=== PATIENT | male | born 1965 | race Caucasian/White ===

== ENCOUNTER 2017-09-11 16:48 | Inpatient (IN) | payer MEDICAID ==
[~2017-09-11] VITALS: Ht 182.9 cm; Wt 115.1 kg
[~2017-09-11 16:48] MED LIST: ARIP20TA PO; BUPR100SR PO; DIPH25 PO; HALO2 PO; TRAZ-219 PO
[2017-09-11 17:15] LABS: BASOPHILS % (AUTO) 0.3 % (0.0-2.0); EOSINOPHILS % (AUTO) 0 % (1.0-6.0); HEMATOCRIT 46.9 % (41-53); HEMOGLOBIN 16.1 g/dL (13.5-17.5); LYMPHOCYTES # (AUTO) 8.1 K/uL (1.0-4.8); MEAN CORPUSCULAR HEMOGLOBIN 31.2 pg (26.0-34.0); MEAN CORPUSCULAR HGB CONC 34.4 G/dL (31.0-37.0); MEAN CORPUSCULAR VOLUME 91 fL (80-100); MONOCYTES # (AUTO) 1.1 K/uL (0.1-1.0); MONOCYTES % (AUTO) 6.8 % (2.0-9.0); NEUTROPHILS % (AUTO) 42.9 % (40.0-70.0); PLATELET COUNT (AUTO) 356 K/uL (150-450); RED BLOOD CELL COUNT(AUTO) 5.17 MIL/uL (4.50-5.90); RED CELL DISTRIBUTION WIDTH 13.5 % (11.5-14.5)
[2017-09-11 17:25] LABS: ANION GAP 12 mmol/L (8-16); CALCIUM, TOTAL 9.4 mg/dL (8.8-10.5); CARBON DIOXIDE 22 mmol/L (22-29); CHLORIDE 93 mmol/L (98-107); CREATININE 1.79 mg/dL (0.60-1.30); GLOMERULAR FILTR. RATE CALC 40 mL/min (>60); GLUCOSE,RANDOM 134 mg/dL (70-110); POTASSIUM 4.4 mmol/L (3.5-5.1); SODIUM SERUM 127 mmol/L (136-145); UREA NITROGEN, BLOOD 41 mg/dL (7-18)
[2017-09-11 17:33] LABS: ALANINE AMINOTRANSFERASE 131 U/L (12-78); ALBUMIN 3.9 g/dL (3.4-5.0); ALKALINE PHOSPHATASE 93 U/L (46-116); ASPARTATE AMINOTRANSFERASE 80 U/L (15-37); BILIRUBIN,TOTAL 1.8 mg/dL (0.1-1.0); TOTAL PROTEIN, SERUM 8.2 g/dL (6.4-8.2)
[2017-09-11] MEDS ORDERED: SODIUM CHLORIDE 0.9% 1,000 ML IV ONE (19:30)
[2017-09-11 19:45] LABS: AMPHET/METH SCREEN,URINE POSITIVE (NEGATIVE); BARBITURATE SCREEN, URINE NEGATIVE (NEGATIVE); BENZODIAZEPINES SCREEN,URINE NEGATIVE (NEGATIVE); CANNABINOID SCREEN,URINE NEGATIVE (NEGATIVE); COCAINE SCREEN,URINE NEGATIVE (NEGATIVE); METHADONE SCREEN, URINE NEGATIVE (NEGATIVE); OPIATE SCREEN,URINE POSITIVE (NEGATIVE)
[2017-09-11 19:46] LABS: PHENCYCLIDINE SCREEN,URINE NEGATIVE (NEGATIVE)
[2017-09-11] MEDS ORDERED: ZOLPIDEM TARTRATE 10 MG TABLET PO PRN (20:15)
[2017-09-11] MEDS ORDERED: HALOPERIDOL 5 MG TABLET PO PRN (20:15)
[2017-09-11 21:15] VITALS: BP 123/89
[2017-09-11] MEDS ORDERED: MAG HYDROX/AL HYDROX/SIMETH ES 30 ML SUSPENSION UDCUP PO PRN (23:15)
[2017-09-11] MEDS ORDERED: DOCUSATE SODIUM 100 MG CAPSULE PO PRN (23:15)
[2017-09-11] MEDS ORDERED: ALBUTEROL SULFATE HFA 90 MCG/PUFF 8 GM INHALER IH PRN (23:15)
[2017-09-11] MEDS ORDERED: LOPERAMIDE HCL 2 MG CAPSULE PO PRN (23:15)
[2017-09-11] MEDS ORDERED: ONDANSETRON HCL 4 MG TABLET PO PRN (23:15)
[2017-09-11] MEDS ORDERED: PETROLATUM,WHITE 71 GM JELLY TP PRN (23:15)
[2017-09-11] MEDS ORDERED: CloNIDine HCL 0.1 MG TABLET PO PRN (23:15)
[2017-09-11] MEDS ORDERED: MAGNESIUM HYDROXIDE SUSPENSION 30 ML UDCUP PO PRN (23:15)
[2017-09-12 01:00] VITALS: BP 118/81
[2017-09-12 08:18] VITALS: BP 106/60
[2017-09-12] MEDS: NICOTINE 14 MG/24 HOUR PATCH TD SCH (09:00)
[2017-09-12 09:28] LABS: CHOL/HDL RATIO 3.1 (4.2-7.3)
[2017-09-12] MEDS: SODIUM CHLORIDE 1 GM TABLET PO SCH ×2 (11:18→16:44)
[2017-09-12] MEDS: BuPROPion HCL XL 150 MG ER TABLET PO SCH (12:15)
[2017-09-12] MEDS: ARIPiprazole 15 MG TABLET PO SCH (12:15)
[2017-09-12 16:13] VITALS: BP 108/66
[2017-09-13 02:31] VITALS: BP 115/62
[2017-09-13] MEDS: LORazepam 2 MG TABLET PO PRN ×2 (08:22→15:54)
[2017-09-13] MEDS: BuPROPion HCL XL 150 MG ER TABLET PO SCH (08:22)
[2017-09-13] MEDS: SODIUM CHLORIDE 1 GM TABLET PO SCH (08:22)
[2017-09-13] MEDS: ARIPiprazole 15 MG TABLET PO SCH (08:22)
[2017-09-13] MEDS: NICOTINE 14 MG/24 HOUR PATCH TD SCH (08:24)
[2017-09-13 08:43] LABS: BASOPHILS % (AUTO) 0.3 % (0.0-2.0); EOSINOPHILS % (AUTO) 0.4 % (1.0-6.0); HEMATOCRIT 45.1 % (41-53); HEMOGLOBIN 15.3 g/dL (13.5-17.5); LYMPHOCYTES # (AUTO) 5.7 K/uL (1.0-4.8); LYMPHOCYTES % (AUTO) 49.5 % (22.0-44.0); MEAN CORPUSCULAR HEMOGLOBIN 31.2 pg (26.0-34.0); MEAN CORPUSCULAR VOLUME 92 fL (80-100); MONOCYTES # (AUTO) 0.8 K/uL (0.1-1.0); MONOCYTES % (AUTO) 6.9 % (2.0-9.0); NEUTROPHILS % (AUTO) 42.9 % (40.0-70.0); PLATELET COUNT (AUTO) 313 K/uL (150-450); RED BLOOD CELL COUNT(AUTO) 4.92 MIL/uL (4.50-5.90); RED CELL DISTRIBUTION WIDTH 13.3 % (11.5-14.5)
[2017-09-13 08:44] VITALS: BP 131/80
[2017-09-13 08:56] LABS: ANION GAP 4 mmol/L (8-16); CARBON DIOXIDE 32 mmol/L (22-29); CHLORIDE 102 mmol/L (98-107); CREATININE 1.01 mg/dL (0.60-1.30); GLOMERULAR FILTR. RATE CALC > 60 mL/min (>60); GLUCOSE,RANDOM 120 mg/dL (70-110); POTASSIUM 5.3 mmol/L (3.5-5.1); SODIUM SERUM 138 mmol/L (136-145); UREA NITROGEN, BLOOD 24 mg/dL (7-18)
[2017-09-13] MEDS ORDERED: SODIUM POLYSTYRENE SULFONATE 15 GM/60 ML SUSPENSION BOTTLE PO ONE (15:15)
[2017-09-13 16:08] VITALS: BP 110/71
[2017-09-14 00:44] VITALS: BP 121/74
[2017-09-14 07:15] VITALS: BP 125/85
[2017-09-14 08:00] VITALS: BP 137/82
[2017-09-14] MEDS: NICOTINE 14 MG/24 HOUR PATCH TD SCH (09:00)
[2017-09-14] MEDS: ARIPiprazole 15 MG TABLET PO SCH (09:17)
[2017-09-14] MEDS: BuPROPion HCL XL 150 MG ER TABLET PO SCH (09:17)
[2017-09-14] MEDS: LORazepam 2 MG TABLET PO PRN (14:38)
[2017-09-14 16:04] VITALS: BP 124/79
[2017-09-15 01:09] VITALS: BP 117/65
[2017-09-15 08:29] VITALS: BP 100/60
[2017-09-15] MEDS: BuPROPion HCL XL 150 MG ER TABLET PO SCH (08:56)
[2017-09-15] MEDS: ARIPiprazole 15 MG TABLET PO SCH (08:56)
[2017-09-15] MEDS: NICOTINE 14 MG/24 HOUR PATCH TD SCH (08:56)
[2017-09-15] MEDS: LORazepam 2 MG TABLET PO PRN ×2 (15:07→19:52)
[2017-09-15 16:11] VITALS: BP 112/66
[2017-09-16 00:20] VITALS: BP 120/87
[2017-09-16] MEDS: LORazepam 2 MG TABLET PO PRN ×3 (00:38→16:16)
[2017-09-16] MEDS: BENZOCAINE/MENTHOL LOZENGE PO PRN ×2 (07:17→23:49)
[2017-09-16 08:19] VITALS: BP 121/86
[2017-09-16] MEDS: NICOTINE 14 MG/24 HOUR PATCH TD SCH (09:00)
[2017-09-16] MEDS: BuPROPion HCL XL 150 MG ER TABLET PO SCH (09:26)
[2017-09-16] MEDS: ARIPiprazole 15 MG TABLET PO SCH (09:26)
[2017-09-16 17:06] VITALS: BP 137/82
[2017-09-17 01:59] VITALS: BP 133/85
[2017-09-17 08:34] VITALS: BP 113/68
[2017-09-17 08:35] LABS: ANION GAP 5 mmol/L (8-16); CARBON DIOXIDE 30 mmol/L (22-29); CHLORIDE 104 mmol/L (98-107); CREATININE 0.83 mg/dL (0.60-1.30); GLOMERULAR FILTR. RATE CALC > 60 mL/min (>60); GLUCOSE,RANDOM 101 mg/dL (70-110); POTASSIUM 4.3 mmol/L (3.5-5.1); SODIUM SERUM 139 mmol/L (136-145); UREA NITROGEN, BLOOD 14 mg/dL (7-18)
[2017-09-17] MEDS: NICOTINE 14 MG/24 HOUR PATCH TD SCH (09:00)
[2017-09-17] MEDS: ARIPiprazole 15 MG TABLET PO SCH (09:27)
[2017-09-17] MEDS: BuPROPion HCL XL 150 MG ER TABLET PO SCH (09:27)
[2017-09-17] MEDS ORDERED: ARIP15TA2 PO (10:20)
[2017-09-17] MEDS ORDERED: BUPR-93 PO (10:20)
== END 2017-09-17 13:20 | disposition home or self-care (01) | DRG 750 ==
LOC: EMS 16:49 → B2S 20:00
PROVIDERS: ADMIT Psychiatry & Neurology Psychiatry; ATTEND Psychiatry & Neurology Psychiatry
DX: F25.1 Schizoaffective disorder, depressive type (principal); N17.9 Acute kidney failure, unspecified; E87.1 Hypo-osmolality and hyponatremia; R45.851 Suicidal ideations; E87.5 Hyperkalemia; I10 Essential (primary) hypertension; D72.829 Elevated white blood cell count, unspecified; F10.10 Alcohol abuse, uncomplicated; F11.90 Opioid use, unspecified, uncomplicated; F12.90 Cannabis use, unspecified, uncomplicated; F15.90 Other stimulant use, unspecified, uncomplicated; J45.909 Unspecified asthma, uncomplicated; W45.8XXA Other foreign body or object entering through skin, initial encounter; I12.9 Hypertensive chronic kidney disease with stage 1 through stage 4 chronic kidney disease, or unspecified chronic kidney disease; N18.9 Chronic kidney disease, unspecified; Y93.89 Activity, other specified; Y92.89 Other specified places as the place of occurrence of the external cause; W33.01XA Accidental discharge of shotgun, initial encounter; Y99.8 Other external cause status; Z91.19 Patient's noncompliance with other medical treatment and regimen; W26.8XXA Contact with other sharp object(s), not elsewhere classified, initial encounter; Z87.828 Personal history of other (healed) physical injury and trauma; Z79.82 Long term (current) use of aspirin; Z79.899 Other long term (current) drug therapy
CPT/HCPCS: 84132; 99285; G0480; J7030

== ENCOUNTER 2018-02-09 18:08 | Inpatient (IN) | payer MEDICAID ==
[~2018-02-09] VITALS: Ht 182.9 cm; Wt 112.7 kg
[~2018-02-09 18:08] MED LIST changes: +ARIP15TA2 PO; -ARIP20TA PO; +BUPR-93 PO; -BUPR100SR PO; -DIPH25 PO; -HALO2 PO; -TRAZ-219 PO
[2018-02-09] MEDS ORDERED: BENZ0.5T44 PO (20:04)
[2018-02-09] MEDS ORDERED: HALO1 PO (20:04)
[2018-02-09] MEDS ORDERED: DULO20CA30 PO (20:04)
[2018-02-09 20:18] LABS: ANION GAP 8 mmol/L (8-16); CALCIUM, TOTAL 8.9 mg/dL (8.8-10.5); CARBON DIOXIDE 27 mmol/L (22-29); CHLORIDE 104 mmol/L (98-107); CREATININE 0.84 mg/dL (0.60-1.30); GLOMERULAR FILTR. RATE CALC > 60 mL/min (>60); GLUCOSE,RANDOM 112 mg/dL (70-110); POTASSIUM 3.8 mmol/L (3.5-5.1); SODIUM SERUM 139 mmol/L (136-145); UREA NITROGEN, BLOOD 17 mg/dL (7-18)
[2018-02-09 20:23] LABS: BASOPHILS % (AUTO) 1.1 % (0.0-2.0); EOSINOPHILS % (AUTO) 1.5 % (1.0-6.0); HEMATOCRIT 43.7 % (41-53); HEMOGLOBIN 15.4 g/dL (13.5-17.5); LYMPHOCYTES # (AUTO) 3.3 K/uL (1.0-4.8); LYMPHOCYTES % (AUTO) 45.1 % (22.0-44.0); MEAN CORPUSCULAR HEMOGLOBIN 32.1 pg (26.0-34.0); MEAN CORPUSCULAR HGB CONC 35.2 G/dL (31.0-37.0); MEAN CORPUSCULAR VOLUME 91 fL (80-100); MONOCYTES # (AUTO) 0.7 K/uL (0.1-1.0); MONOCYTES % (AUTO) 9.3 % (2.0-9.0); NEUTROPHILS # (AUTO) 3.1 K/uL (1.8-7.7); PLATELET COUNT (AUTO) 264 K/uL (150-450); RED BLOOD CELL COUNT(AUTO) 4.79 MIL/uL (4.50-5.90); RED CELL DISTRIBUTION WIDTH 13.3 % (11.5-14.5)
[2018-02-09 20:26] LABS: ALANINE AMINOTRANSFERASE 118 U/L (12-78); ALBUMIN 3.1 g/dL (3.4-5.0); ALKALINE PHOSPHATASE 116 U/L (46-116); ASPARTATE AMINOTRANSFERASE 111 U/L (15-37); BILIRUBIN,TOTAL 0.8 mg/dL (0.1-1.0); TOTAL PROTEIN, SERUM 7.3 g/dL (6.4-8.2)
[2018-02-09 21:21] LABS: AMPHET/METH SCREEN,URINE POSITIVE (NEGATIVE); BARBITURATE SCREEN, URINE NEGATIVE (NEGATIVE); BENZODIAZEPINES SCREEN,URINE NEGATIVE (NEGATIVE); CANNABINOID SCREEN,URINE NEGATIVE (NEGATIVE); COCAINE SCREEN,URINE NEGATIVE (NEGATIVE); METHADONE SCREEN, URINE NEGATIVE (NEGATIVE); OPIATE SCREEN,URINE POSITIVE (NEGATIVE); PHENCYCLIDINE SCREEN,URINE NEGATIVE (NEGATIVE)
[2018-02-09] MEDS ORDERED: HALOPERIDOL 5 MG TABLET PO PRN (22:15)
[2018-02-09 22:48] LABS: APPEARANCE,URINE CLEAR (CLEAR); GLUCOSE, URINE (UA) NEGATIVE (NEGATIVE); KETONES,URINE TRACE mg/dL (NEGATIVE); LEUKOCYTE ESTERASE ,URINE NEGATIVE (NEGATIVE); NITRATE,URINE NEGATIVE (NEGATIVE); OCCULT BLOOD,URINE NEGATIVE (NEGATIVE); PROTEIN,URINE NEGATIVE (NEGATIVE)
[2018-02-09 22:49] LABS: BILIRUBIN,URINE PRELIM. POSITIVE (NEGATIVE)
[2018-02-09 23:13] LABS: BACTERIA,URINE None Seen /HPF (None Seen); RBC,URINE 0-2 /HPF (0-2); SQUAMOUS EPITHELIAL CELL,UR Few /LPF (None Seen); WBC,URINE 0-2 /HPF (0-5)
[2018-02-10 00:47] VITALS: BP 120/81
[2018-02-10] MEDS: ZOLPIDEM TARTRATE 10 MG TABLET PO PRN (00:57)
[2018-02-10] MEDS: LORazepam 2 MG TABLET PO PRN (00:57)
[2018-02-10] MEDS ORDERED: LOPERAMIDE HCL 2 MG CAPSULE PO PRN ×2 (06:15→06:30)
[2018-02-10] MEDS ORDERED: CloNIDine HCL 0.1 MG TABLET PO PRN ×2 (06:15→06:30)
[2018-02-10] MEDS ORDERED: GuaiFENesin/D-METHORPHAN [SUGAR-FREE] 200-20MG/10 ML SYRUP UDCUP PO PRN ×2 (06:15→06:30)
[2018-02-10] MEDS ORDERED: ONDANSETRON HCL 4 MG TABLET PO PRN ×2 (06:15→06:30)
[2018-02-10] MEDS ORDERED: MAG HYDROX/AL HYDROX/SIMETH ES 30 ML SUSPENSION UDCUP PO PRN ×2 (06:15→06:30)
[2018-02-10] MEDS ORDERED: MAGNESIUM HYDROXIDE SUSPENSION 30 ML UDCUP PO PRN ×2 (06:15→06:30)
[2018-02-10] MEDS ORDERED: DOCUSATE SODIUM 100 MG CAPSULE PO PRN ×2 (06:15→06:30)
[2018-02-10] MEDS ORDERED: NICOTINE 14 MG/24 HOUR PATCH TD PRN ×2 (06:15→06:30)
[2018-02-10] MEDS ORDERED: PETROLATUM,WHITE 71 GM JELLY TP PRN ×2 (06:15→06:30)
[2018-02-10] MEDS ORDERED: ALBUTEROL SULFATE HFA 90 MCG/PUFF 8 GM INHALER IH PRN ×2 (06:15→06:30)
[2018-02-10 08:13] LABS: BASOPHILS % (AUTO) 0.4 % (0.0-2.0); EOSINOPHILS % (AUTO) 2.5 % (1.0-6.0); HEMATOCRIT 40.7 % (41-53); HEMOGLOBIN 14.4 g/dL (13.5-17.5); LYMPHOCYTES # (AUTO) 3.2 K/uL (1.0-4.8); LYMPHOCYTES % (AUTO) 52.4 % (22.0-44.0); MEAN CORPUSCULAR HEMOGLOBIN 32.6 pg (26.0-34.0); MEAN CORPUSCULAR HGB CONC 35.3 G/dL (31.0-37.0); MEAN CORPUSCULAR VOLUME 92 fL (80-100); MONOCYTES # (AUTO) 0.6 K/uL (0.1-1.0); MONOCYTES % (AUTO) 9.9 % (2.0-9.0); NEUTROPHILS # (AUTO) 2.1 K/uL (1.8-7.7); NEUTROPHILS % (AUTO) 34.8 % (40.0-70.0); PLATELET COUNT (AUTO) 242 K/uL (150-450); RED BLOOD CELL COUNT(AUTO) 4.42 MIL/uL (4.50-5.90); RED CELL DISTRIBUTION WIDTH 13.7 % (11.5-14.5)
[2018-02-10 08:45] LABS: HEMOGLOBIN A1C 5.9 % (4.5-6.2)
[2018-02-10 08:46] VITALS: BP 111/76
[2018-02-10 08:55] LABS: ALANINE AMINOTRANSFERASE 104 U/L (12-78); ALBUMIN 2.7 g/dL (3.4-5.0); ALKALINE PHOSPHATASE 100 U/L (46-116); ANION GAP 4 mmol/L (8-16); ASPARTATE AMINOTRANSFERASE 98 U/L (15-37); BILIRUBIN,TOTAL 0.5 mg/dL (0.1-1.0); CALCIUM, TOTAL 8.6 mg/dL (8.8-10.5); CARBON DIOXIDE 30 mmol/L (22-29); CHLORIDE 108 mmol/L (98-107); CHOL/HDL RATIO 2.2 (4.2-7.3); CHOLESTEROL 85 mg/dL (131-200); FREE T4 (FREE THYROXINE) 1.37 ng/dL (0.76-1.46); GLOMERULAR FILTR. RATE CALC > 60 mL/min (>60); GLUCOSE,RANDOM 109 mg/dL (70-110); HDL CHOLESTEROL 39 mg/dL (40-60); LDL CHOL (CALC.) 39 mg/dL (0-130); POTASSIUM 3.9 mmol/L (3.5-5.1); SODIUM SERUM 142 mmol/L (136-145); THYROID STIMULATING HORMONE 1.76 uIU/mL (0.36-3.74); TOTAL PROTEIN, SERUM 6.3 g/dL (6.4-8.2); TRIGLYCERIDES 35 mg/dL (15-150); UREA NITROGEN, BLOOD 18 mg/dL (7-18)
[2018-02-10] MEDS: DULoxetine HCL 20 MG CAPSULE PO SCH (09:34)
[2018-02-10] MEDS: ARIPiprazole 15 MG TABLET PO SCH (09:34)
[2018-02-10 16:23] VITALS: BP 120/64
[2018-02-11 02:49] VITALS: BP 114/73
[2018-02-11 08:32] VITALS: BP 121/69
[2018-02-11] MEDS: DULoxetine HCL 20 MG CAPSULE PO SCH (08:54)
[2018-02-11] MEDS: ARIPiprazole 15 MG TABLET PO SCH (08:54)
[2018-02-11 16:18] VITALS: BP 129/65
[2018-02-12 01:43] VITALS: BP 139/81
[2018-02-12 08:27] VITALS: BP 126/81
[2018-02-12] MEDS: ARIPiprazole 15 MG TABLET PO SCH (08:29)
[2018-02-12] MEDS: DULoxetine HCL 20 MG CAPSULE PO SCH (08:29)
[2018-02-12] MEDS ORDERED: DULoxetine HCL 20 MG CAPSULE PO ONE (11:45)
[2018-02-12] MEDS ORDERED: ACETAMINOPHEN 325 MG TABLET PO PRN (16:00)
[2018-02-12 16:14] VITALS: BP 123/68
[2018-02-13 07:14] VITALS: BP 120/86
[2018-02-13 07:15] VITALS: BP 128/74
[2018-02-13 08:12] VITALS: BP 114/74
[2018-02-13] MEDS ORDERED: DULoxetine HCL 20 MG CAPSULE PO SCH (09:00)
[2018-02-13] MEDS: ARIPiprazole 15 MG TABLET PO SCH (09:29)
[2018-02-13 16:20] VITALS: BP 128/67
[2018-02-13] MEDS: LORazepam 2 MG TABLET PO PRN (16:51)
[2018-02-14 07:18] VITALS: BP 127/88
[2018-02-14 08:06] VITALS: BP 125/76
[2018-02-14] MEDS: ARIPiprazole 15 MG TABLET PO SCH (08:57)
[2018-02-14] MEDS: ESCITALOPRAM OXALATE 10 MG TABLET PO SCH (08:57)
[2018-02-14 16:15] VITALS: BP 148/75
[2018-02-14] MEDS: LORazepam 2 MG TABLET PO PRN (16:35)
[2018-02-15 00:41] VITALS: BP 125/79
[2018-02-15] MEDS: ARIPiprazole 15 MG TABLET PO SCH (08:14)
[2018-02-15] MEDS: ESCITALOPRAM OXALATE 10 MG TABLET PO SCH (08:14)
[2018-02-15 08:18] VITALS: BP 132/64
[2018-02-15 16:31] VITALS: BP 105/73
[2018-02-15] MEDS: LORazepam 2 MG TABLET PO PRN (17:20)
[2018-02-16 02:20] VITALS: BP 109/72
[2018-02-16 08:17] VITALS: BP 100/64
[2018-02-16] MEDS: ARIPiprazole 15 MG TABLET PO SCH (08:27)
[2018-02-16] MEDS: ESCITALOPRAM OXALATE 10 MG TABLET PO SCH (08:27)
[2018-02-16] MEDS: LORazepam 2 MG TABLET PO PRN (10:25)
[2018-02-16 16:32] VITALS: BP 115/71
[2018-02-17 05:47] VITALS: BP 120/73
[2018-02-17] MEDS: ESCITALOPRAM OXALATE 10 MG TABLET PO SCH (08:35)
[2018-02-17] MEDS: ARIPiprazole 15 MG TABLET PO SCH (08:35)
[2018-02-17] MEDS ORDERED: ESCITALOPRAM OXALATE 10 MG TABLET PO SCH (09:15)
[2018-02-17] MEDS ORDERED: ESCITALOPRAM OXALATE 10 MG TABLET PO ONE (09:15)
[2018-02-17] MEDS ORDERED: ARIPiprazole 5 MG TABLET PO ONE (09:15)
[2018-02-17 12:31] VITALS: BP 130/81
[2018-02-17 16:10] VITALS: BP 124/70
[2018-02-17] MEDS: LORazepam 2 MG TABLET PO PRN (20:26)
[2018-02-18 00:15] VITALS: BP 128/72
[2018-02-18 08:24] VITALS: BP 111/69
[2018-02-18] MEDS ORDERED: TUBERCULIN, PURIFIED PROTEIN DERIVATIVE 5 TU/0.1 ML SYG ID ONE (08:45)
[2018-02-18] MEDS: ARIPiprazole 10 MG TABLET PO SCH (08:55)
[2018-02-18] MEDS: ESCITALOPRAM OXALATE 10 MG TABLET PO SCH (08:55)
[2018-02-18] MEDS: LORazepam 2 MG TABLET PO PRN (16:18)
[2018-02-18 16:21] VITALS: BP 120/85
[2018-02-19 05:33] VITALS: BP 118/76
[2018-02-19 08:25] VITALS: BP 113/66
[2018-02-19] MEDS: ARIPiprazole 10 MG TABLET PO SCH (08:59)
[2018-02-19] MEDS: ESCITALOPRAM OXALATE 10 MG TABLET PO SCH (09:00)
[2018-02-19] MEDS ORDERED: ESCITALOPRAM OXALATE 10 MG TABLET PO ONE (11:45)
[2018-02-19] MEDS: LORazepam 2 MG TABLET PO PRN ×2 (12:41→20:21)
[2018-02-19 16:10] VITALS: BP 130/85
[2018-02-19] MEDS: NICOTINE POLACRILEX 2 MG LOZENGE PO PRN (20:22)
[2018-02-20 00:35] VITALS: BP 102/67
[2018-02-20 08:29] VITALS: BP 120/70
[2018-02-20] MEDS: ESCITALOPRAM OXALATE 20 MG TABLET PO SCH (09:03)
[2018-02-20] MEDS: ARIPiprazole 10 MG TABLET PO SCH (09:03)
[2018-02-20] MEDS: LORazepam 2 MG TABLET PO PRN ×2 (11:03→17:51)
[2018-02-20 16:51] VITALS: BP 116/71
[2018-02-21 00:26] VITALS: BP 123/63
[2018-02-21 08:28] VITALS: BP 114/81
[2018-02-21] MEDS: ARIPiprazole 10 MG TABLET PO SCH (09:12)
[2018-02-21] MEDS: ESCITALOPRAM OXALATE 20 MG TABLET PO SCH (09:12)
[2018-02-21] MEDS: LORazepam 2 MG TABLET PO PRN ×2 (11:13→16:26)
[2018-02-21] MEDS: BuPROPion HCL XL 150 MG ER TABLET PO SCH (11:33)
[2018-02-21 16:14] VITALS: BP 119/84
[2018-02-22 00:15] VITALS: BP 104/64
[2018-02-22] MEDS: ARIPiprazole 10 MG TABLET PO SCH (08:17)
[2018-02-22] MEDS: ESCITALOPRAM OXALATE 20 MG TABLET PO SCH (08:18)
[2018-02-22] MEDS: BuPROPion HCL XL 150 MG ER TABLET PO SCH (08:18)
[2018-02-22 08:36] VITALS: BP 125/70
[2018-02-22] MEDS: LORazepam 2 MG TABLET PO PRN ×2 (10:12→17:16)
[2018-02-22 16:05] VITALS: BP 107/67
[2018-02-23 00:51] VITALS: BP 105/64
[2018-02-23 08:23] VITALS: BP 126/72
[2018-02-23] MEDS: BuPROPion HCL XL 150 MG ER TABLET PO SCH (08:50)
[2018-02-23] MEDS: ESCITALOPRAM OXALATE 20 MG TABLET PO SCH (08:50)
[2018-02-23] MEDS: ARIPiprazole 10 MG TABLET PO SCH (08:50)
[2018-02-23] MEDS: LORazepam 2 MG TABLET PO PRN ×2 (12:43→17:53)
[2018-02-23 16:45] VITALS: BP 125/74
[2018-02-23] MEDS: NICOTINE POLACRILEX 2 MG LOZENGE PO PRN (17:52)
[2018-02-24 00:53] VITALS: BP 106/65
[2018-02-24 08:25] VITALS: BP 121/70
[2018-02-24] MEDS: BuPROPion HCL XL 150 MG ER TABLET PO SCH (08:54)
[2018-02-24] MEDS: ARIPiprazole 10 MG TABLET PO SCH (08:54)
[2018-02-24] MEDS: ESCITALOPRAM OXALATE 20 MG TABLET PO SCH (08:55)
[2018-02-24] MEDS ORDERED: BuPROPion HCL XL 150 MG ER TABLET PO ONE (11:45)
[2018-02-24] MEDS ORDERED: ARIPiprazole 10 MG TABLET PO ONE (11:45)
[2018-02-24] MEDS: LORazepam 2 MG TABLET PO PRN (12:21)
[2018-02-24 16:11] VITALS: BP 117/68
[2018-02-25 06:33] VITALS: BP 108/68
[2018-02-25] MEDS: ARIPiprazole 15 MG TABLET PO SCH (09:03)
[2018-02-25] MEDS: BuPROPion HCL XL 150 MG ER TABLET PO SCH (09:04)
[2018-02-25] MEDS: ESCITALOPRAM OXALATE 20 MG TABLET PO SCH (09:04)
[2018-02-25 09:09] VITALS: BP 124/76
[2018-02-25 09:33] LABS: AMPHET/METH SCREEN,URINE NEGATIVE (NEGATIVE); BARBITURATE SCREEN, URINE NEGATIVE (NEGATIVE); BENZODIAZEPINES SCREEN,URINE NEGATIVE (NEGATIVE); CANNABINOID SCREEN,URINE NEGATIVE (NEGATIVE); COCAINE SCREEN,URINE NEGATIVE (NEGATIVE); METHADONE SCREEN, URINE NEGATIVE (NEGATIVE); OPIATE SCREEN,URINE NEGATIVE (NEGATIVE); PHENCYCLIDINE SCREEN,URINE NEGATIVE (NEGATIVE)
[2018-02-25 16:12] VITALS: BP 134/80
[2018-02-25] MEDS: LORazepam 2 MG TABLET PO PRN (18:47)
[2018-02-26 00:20] VITALS: BP 105/69
[2018-02-26] MEDS: ARIPiprazole 15 MG TABLET PO SCH (09:02)
[2018-02-26] MEDS: BuPROPion HCL XL 150 MG ER TABLET PO SCH (09:03)
[2018-02-26] MEDS: ESCITALOPRAM OXALATE 20 MG TABLET PO SCH (09:03)
[2018-02-26 09:55] VITALS: BP 138/76
[2018-02-26 16:07] VITALS: BP 130/78
[2018-02-27 05:49] VITALS: BP 126/72
[2018-02-27] MEDS: ARIPiprazole 15 MG TABLET PO SCH (08:21)
[2018-02-27] MEDS: BuPROPion HCL XL 150 MG ER TABLET PO SCH (08:21)
[2018-02-27] MEDS: ESCITALOPRAM OXALATE 20 MG TABLET PO SCH (08:21)
[2018-02-27 08:53] VITALS: BP 117/86
[2018-02-27] MEDS: LORazepam 2 MG TABLET PO PRN (12:47)
[2018-02-27 16:37] VITALS: BP 107/69
[2018-02-28 01:05] VITALS: BP 118/60
[2018-02-28] MEDS: LORazepam 2 MG TABLET PO PRN ×2 (06:32→16:37)
[2018-02-28 08:16] VITALS: BP 108/73
[2018-02-28] MEDS: BuPROPion HCL XL 150 MG ER TABLET PO SCH (08:24)
[2018-02-28] MEDS: ESCITALOPRAM OXALATE 20 MG TABLET PO SCH (08:24)
[2018-02-28] MEDS: ARIPiprazole 15 MG TABLET PO SCH (08:24)
[2018-02-28 16:41] VITALS: BP 110/76
[2018-03-01] VITALS (8 sets, daily range): BP systolic 105–139; BP diastolic 63–94
[2018-03-01] MEDS: ESCITALOPRAM OXALATE 20 MG TABLET PO SCH (08:15)
[2018-03-01] MEDS: BuPROPion HCL XL 150 MG ER TABLET PO SCH (08:15)
[2018-03-01] MEDS: ARIPiprazole 15 MG TABLET PO SCH (08:15)
[2018-03-01] MEDS: TraMADol HCL 50 MG TABLET PO PRN ×2 (09:42→18:19)
[2018-03-01] MEDS ORDERED: FAMOTIDINE 20 MG TABLET PO ONE (14:15)
[2018-03-01] MEDS ORDERED: PredniSONE 20 MG TABLET PO ONE (14:15)
[2018-03-01] MEDS ORDERED: DiphenhydrAMINE HCL 25 MG CAPSULE PO ONE (14:15)
[2018-03-02 05:27] VITALS: BP 116/77
[2018-03-02] MEDS: TraMADol HCL 50 MG TABLET PO PRN ×2 (05:40→13:40)
[2018-03-02] MEDS ORDERED: DiphenhydrAMINE HCL 25 MG CAPSULE PO ONE (06:45)
[2018-03-02] MEDS ORDERED: PredniSONE 10 MG TABLET PO ONE (06:45)
[2018-03-02] MEDS: ARIPiprazole 15 MG TABLET PO SCH (08:01)
[2018-03-02] MEDS: ESCITALOPRAM OXALATE 20 MG TABLET PO SCH (08:01)
[2018-03-02] MEDS: BuPROPion HCL XL 150 MG ER TABLET PO SCH (08:01)
[2018-03-02 08:11] VITALS: BP 128/70
[2018-03-02 13:37] VITALS: BP 123/81
[2018-03-02] MEDS ORDERED: FAMOTIDINE 20 MG TABLET PO ONE (15:30)
[2018-03-02 15:53] VITALS: BP 110/72
[2018-03-02 19:38] VITALS: BP 110/72
[2018-03-03 00:10] VITALS: BP 138/90
[2018-03-03] MEDS: TraMADol HCL 50 MG TABLET PO PRN ×3 (00:12→16:39)
[2018-03-03 08:02] VITALS: BP 140/85
[2018-03-03] MEDS: ESCITALOPRAM OXALATE 20 MG TABLET PO SCH (08:14)
[2018-03-03] MEDS: BuPROPion HCL XL 150 MG ER TABLET PO SCH (08:14)
[2018-03-03] MEDS: ARIPiprazole 15 MG TABLET PO SCH (08:14)
[2018-03-03 16:01] VITALS: BP 139/78
[2018-03-04 00:34] VITALS: BP 109/69
[2018-03-04 05:00] VITALS: BP 126/81
[2018-03-04] MEDS: TraMADol HCL 50 MG TABLET PO PRN ×2 (05:09→16:42)
[2018-03-04] MEDS: BuPROPion HCL XL 150 MG ER TABLET PO SCH (08:09)
[2018-03-04] MEDS: ESCITALOPRAM OXALATE 20 MG TABLET PO SCH (08:09)
[2018-03-04] MEDS: ARIPiprazole 15 MG TABLET PO SCH (08:09)
[2018-03-04 08:16] VITALS: BP 141/82
[2018-03-04 16:10] VITALS: BP 125/82
[2018-03-05 01:23] VITALS: BP 109/73
[2018-03-05] MEDS: TraMADol HCL 50 MG TABLET PO PRN ×3 (01:43→20:35)
[2018-03-05] MEDS: ESCITALOPRAM OXALATE 20 MG TABLET PO SCH (08:09)
[2018-03-05] MEDS: BuPROPion HCL XL 150 MG ER TABLET PO SCH (08:09)
[2018-03-05] MEDS: ARIPiprazole 15 MG TABLET PO SCH (08:09)
[2018-03-05 09:10] VITALS: BP 134/78
[2018-03-05 12:20] VITALS: BP 117/74
[2018-03-05 16:02] VITALS: BP 118/76
[2018-03-05 20:35] VITALS: BP 118/78
[2018-03-05] MEDS: ZOLPIDEM TARTRATE 10 MG TABLET PO PRN (21:17)
[2018-03-06 00:35] VITALS: BP 110/62
[2018-03-06 05:14] VITALS: BP 138/85
[2018-03-06] MEDS: TraMADol HCL 50 MG TABLET PO PRN (05:31)
[2018-03-06] MEDS: BuPROPion HCL XL 150 MG ER TABLET PO SCH (08:16)
[2018-03-06] MEDS: ESCITALOPRAM OXALATE 20 MG TABLET PO SCH (08:16)
[2018-03-06] MEDS: ARIPiprazole 15 MG TABLET PO SCH (08:16)
[2018-03-06 08:19] VITALS: BP 126/81
[2018-03-06 16:11] VITALS: BP 148/90
[2018-03-06] MEDS: ZOLPIDEM TARTRATE 10 MG TABLET PO PRN (20:16)
[2018-03-07 06:06] VITALS: BP 128/83
[2018-03-07] MEDS: BuPROPion HCL XL 150 MG ER TABLET PO SCH (08:16)
[2018-03-07] MEDS: ESCITALOPRAM OXALATE 20 MG TABLET PO SCH (08:16)
[2018-03-07] MEDS: ARIPiprazole 15 MG TABLET PO SCH (08:16)
[2018-03-07] MEDS ORDERED: ESCI20TA PO (08:26)
[2018-03-07] MEDS ORDERED: ARIP15TA2 PO ×2 (08:26→11:42)
[2018-03-07] MEDS ORDERED: BUPR-93 PO (08:26)
[2018-03-07 08:36] VITALS: BP 124/93
[2018-03-07] MEDS ORDERED: ESCI20TA36 PO (11:42)
[2018-03-07] MEDS ORDERED: BUPR-47 PO (11:42)
== END 2018-03-07 13:15 | disposition home or self-care (01) | DRG 750 ==
LOC: EMS 18:09 → B2S 22:00
DX: F25.1 Schizoaffective disorder, depressive type (principal); R45.851 Suicidal ideations; Z59.0 Homelessness; F10.10 Alcohol abuse, uncomplicated; F11.10 Opioid abuse, uncomplicated; F15.10 Other stimulant abuse, uncomplicated; F31.9 Bipolar disorder, unspecified; J45.909 Unspecified asthma, uncomplicated; I10 Essential (primary) hypertension; F17.210 Nicotine dependence, cigarettes, uncomplicated; F41.0 Panic disorder [episodic paroxysmal anxiety]; T78.1XXA Other adverse food reactions, not elsewhere classified, initial encounter; T78.49XA Other allergy, initial encounter; X58.XXXA Exposure to other specified factors, initial encounter; Z65.3 Problems related to other legal circumstances; R45.87 Impulsiveness; E66.9 Obesity, unspecified; Z71.41 Alcohol abuse counseling and surveillance of alcoholic; Z71.51 Drug abuse counseling and surveillance of drug abuser; Z88.8 Allergy status to other drugs, medicaments and biological substances; Z90.49 Acquired absence of other specified parts of digestive tract; Z91.5 Personal history of self-harm; Z88.6 Allergy status to analgesic agent; Z91.018 Allergy to other foods; Z68.33 Body mass index [BMI] 33.0-33.9, adult
CPT/HCPCS: 80307; 83036; 84439; 84443; 87081; G0480

== ENCOUNTER 2018-03-02 18:51 | Emergency (ER) | payer MEDICAID ==
[~2018-03-02] VITALS: Ht 182.9 cm; Wt 113.6 kg
[~2018-03-02 18:51] MED LIST changes: -ARIP15TA2 PO; +BENZ0.5T44 PO; -BUPR-93 PO; +DULO20CA30 PO; +HALO1 PO
[2018-03-02 22:44] VITALS: BP 138/80
== END 2018-03-02 23:45 | disposition home or self-care (01) ==
LOC: EMS 18:52
DX: G62.9 Polyneuropathy, unspecified (principal); F31.9 Bipolar disorder, unspecified; F20.9 Schizophrenia, unspecified; F17.210 Nicotine dependence, cigarettes, uncomplicated; Z79.899 Other long term (current) drug therapy; Z88.6 Allergy status to analgesic agent; Z91.018 Allergy to other foods; Z88.8 Allergy status to other drugs, medicaments and biological substances; Z90.49 Acquired absence of other specified parts of digestive tract
CPT/HCPCS: 82948; 93970; 99406

== ENCOUNTER 2018-04-05 18:42 | Emergency (ER) | payer MEDICAID ==
[~2018-04-05] VITALS: Ht 177.8 cm; Wt 104.5 kg
[~2018-04-05 18:42] MED LIST changes: +ARIP15TA2 PO; -BENZ0.5T44 PO; +BUPR-47 PO; +BUPR-93 PO; -DULO20CA30 PO; +ESCI20TA PO; +ESCI20TA36 PO; -HALO1 PO
[2018-04-05] MEDS ORDERED: GABA-531 PO (19:51)
[2018-04-05] MEDS ORDERED: HALO1 PO (19:51)
[2018-04-05] MEDS ORDERED: BENZ1TAB10 PO (19:51)
[2018-04-05 21:06] LABS: BASOPHILS % (AUTO) 0.4 % (0.0-2.0); EOSINOPHILS % (AUTO) 0.5 % (1.0-6.0); HEMATOCRIT 45.8 % (41-53); HEMOGLOBIN 15.6 g/dL (13.5-17.5); LYMPHOCYTES # (AUTO) 4.8 K/uL (1.0-4.8); LYMPHOCYTES % (AUTO) 54.9 % (22.0-44.0); MEAN CORPUSCULAR HEMOGLOBIN 31.3 pg (26.0-34.0); MEAN CORPUSCULAR VOLUME 92 fL (80-100); MONOCYTES # (AUTO) 0.5 K/uL (0.1-1.0); MONOCYTES % (AUTO) 5.2 % (2.0-9.0); NEUTROPHILS # (AUTO) 3.4 K/uL (1.8-7.7); PLATELET COUNT (AUTO) 228 K/uL (150-450); RED BLOOD CELL COUNT(AUTO) 4.98 MIL/uL (4.50-5.90); RED CELL DISTRIBUTION WIDTH 12.5 % (11.5-14.5)
[2018-04-05 21:23] LABS: ANION GAP 18 mmol/L (8-16); CALCIUM, TOTAL 9.3 mg/dL (8.8-10.5); CARBON DIOXIDE 19 mmol/L (22-29); CHLORIDE 100 mmol/L (98-107); CREATININE 1.07 mg/dL (0.60-1.30); GLOMERULAR FILTR. RATE CALC > 60 mL/min (>60); GLUCOSE,RANDOM 392 mg/dL (70-110); POTASSIUM 4.1 mmol/L (3.5-5.1); SODIUM SERUM 137 mmol/L (136-145); UREA NITROGEN, BLOOD 12 mg/dL (7-18)
[2018-04-05 21:28] LABS: ALANINE AMINOTRANSFERASE 185 U/L (12-78); ALBUMIN 3.3 g/dL (3.4-5.0); ALKALINE PHOSPHATASE 224 U/L (46-116); ASPARTATE AMINOTRANSFERASE 125 U/L (15-37); BILIRUBIN,TOTAL 1.3 mg/dL (0.1-1.0); TOTAL PROTEIN, SERUM 7.6 g/dL (6.4-8.2)
[2018-04-05 22:00] VITALS: BP 137/83
== END 2018-04-05 22:00 | disposition home or self-care (01) ==
LOC: EMS 18:43
DX: R45.851 Suicidal ideations (principal); L29.9 Pruritus, unspecified; R73.9 Hyperglycemia, unspecified; J45.909 Unspecified asthma, uncomplicated; F31.9 Bipolar disorder, unspecified; F20.9 Schizophrenia, unspecified; I10 Essential (primary) hypertension; F17.210 Nicotine dependence, cigarettes, uncomplicated; Z90.49 Acquired absence of other specified parts of digestive tract; Z88.6 Allergy status to analgesic agent; Z91.018 Allergy to other foods
CPT/HCPCS: 36415; 80053; 85025; 99285; G0480

== ENCOUNTER 2018-06-22 19:15 | Emergency (ER) | payer MEDICAID ==
[~2018-06-22] VITALS: Ht 182.9 cm; Wt 97.3 kg
[~2018-06-22 19:15] MED LIST changes: +ARIP10TA8 PO; -ARIP15TA2 PO; -BUPR-47 PO; +DSS100 PO; -ESCI20TA36 PO; +FOLI1TAB61 PO; +LEVO250 PO; +METO25 PO; +VANC750V IV
[2018-06-22 19:39] LABS: GLUCOSE,POINT OF CARE 208 MG/DL (70-110)
[2018-06-22] MEDS ORDERED: MORPHINE SULFATE 4 MG/ML SYRINGE IM ONE (20:15)
[2018-06-22 21:46] VITALS: BP 141/99
== END 2018-06-22 23:10 | disposition home or self-care (01) ==
LOC: EMS 19:16
DX: S62.316A Displaced fracture of base of fifth metacarpal bone, right hand, initial encounter for closed fracture (principal); S63.255A Unspecified dislocation of left ring finger, initial encounter; J45.909 Unspecified asthma, uncomplicated; F31.9 Bipolar disorder, unspecified; F20.9 Schizophrenia, unspecified; I10 Essential (primary) hypertension; N17.9 Acute kidney failure, unspecified; F17.210 Nicotine dependence, cigarettes, uncomplicated; F19.90 Other psychoactive substance use, unspecified, uncomplicated; Z90.49 Acquired absence of other specified parts of digestive tract; Z88.6 Allergy status to analgesic agent; Z91.018 Allergy to other foods; Y04.0XXA Assault by unarmed brawl or fight, initial encounter; Y93.89 Activity, other specified; Y92.89 Other specified places as the place of occurrence of the external cause; Y99.8 Other external cause status
CPT/HCPCS: 26770; 73130 ×2; 73140; 82962; 96372; 99284; J2270

== ENCOUNTER 2018-10-10 10:22 | Emergency (ER) | payer MEDICAID ==
[~2018-10-10] VITALS: Ht 180.3 cm; Wt 100.0 kg
[~2018-10-10 10:22] MED LIST changes: -VANC750V IV
[2018-10-10] MEDS ORDERED: OLAN5TAB2 PO (10:34)
[2018-10-10 11:14] LABS: BASOPHILS % (AUTO) 0.6 % (0.0-2.0); EOSINOPHILS % (AUTO) 2.2 % (1.0-6.0); HEMATOCRIT 40.4 % (41-53); HEMOGLOBIN 13.4 g/dL (13.5-17.5); LYMPHOCYTES # (AUTO) 3.2 K/uL (1.0-4.8); LYMPHOCYTES % (AUTO) 44.8 % (22.0-44.0); MEAN CORPUSCULAR HEMOGLOBIN 31.5 pg (26.0-34.0); MEAN CORPUSCULAR HGB CONC 33.2 G/dL (31.0-37.0); MEAN CORPUSCULAR VOLUME 95 fL (80-100); MONOCYTES # (AUTO) 0.4 K/uL (0.1-1.0); MONOCYTES % (AUTO) 5.4 % (2.0-9.0); NEUTROPHILS # (AUTO) 3.3 K/uL (1.8-7.7); PLATELET COUNT (AUTO) 230 K/uL (150-450); RED BLOOD CELL COUNT(AUTO) 4.26 MIL/uL (4.50-5.90); RED CELL DISTRIBUTION WIDTH 14.6 % (11.5-14.5)
[2018-10-10 11:41] LABS: ANION GAP 10 mmol/L (8-16); CALCIUM, TOTAL 8.6 mg/dL (8.8-10.5); CARBON DIOXIDE 20 mmol/L (22-29); CHLORIDE 109 mmol/L (98-107); GLOMERULAR FILTR. RATE CALC > 60 mL/min (>60); GLUCOSE,RANDOM 113 mg/dL (70-110); POTASSIUM 3.8 mmol/L (3.5-5.1); SODIUM SERUM 139 mmol/L (136-145); UREA NITROGEN, BLOOD 26 mg/dL (7-18)
[2018-10-10 11:47] LABS: ALANINE AMINOTRANSFERASE 69 U/L (12-78); ALBUMIN 3.1 g/dL (3.4-5.0); ALKALINE PHOSPHATASE 129 U/L (46-116); ASPARTATE AMINOTRANSFERASE 46 U/L (15-37); BILIRUBIN,TOTAL 0.6 mg/dL (0.1-1.0); TOTAL PROTEIN, SERUM 6.8 g/dL (6.4-8.2)
[2018-10-10 11:50] VITALS: BP 134/59
== END 2018-10-10 12:18 | disposition home or self-care (01) ==
LOC: EMS 10:24
DX: S01.80XA Unspecified open wound of other part of head, initial encounter (principal); F25.9 Schizoaffective disorder, unspecified; F15.10 Other stimulant abuse, uncomplicated; F17.210 Nicotine dependence, cigarettes, uncomplicated; J45.909 Unspecified asthma, uncomplicated; F31.9 Bipolar disorder, unspecified; I10 Essential (primary) hypertension; F19.90 Other psychoactive substance use, unspecified, uncomplicated; F11.90 Opioid use, unspecified, uncomplicated; Z90.49 Acquired absence of other specified parts of digestive tract; Z88.6 Allergy status to analgesic agent; Z91.018 Allergy to other foods; X58.XXXA Exposure to other specified factors, initial encounter; Y93.89 Activity, other specified; Y92.89 Other specified places as the place of occurrence of the external cause; Y99.8 Other external cause status
CPT/HCPCS: 99406

== ENCOUNTER 2019-03-14 21:30 | Inpatient (IN) | payer MEDICAID ==
[~2019-03-14] VITALS: Ht 182.9 cm; Wt 112.9 kg
[~2019-03-14 21:30] MED LIST changes: -DSS100 PO; -ESCI20TA PO; -FOLI1TAB61 PO; -LEVO250 PO; -METO25 PO; +OLAN5TAB2 PO
[2019-03-14 22:57] LABS: BASOPHILS % (AUTO) 0.2 % (0.0-2.0); EOSINOPHILS % (AUTO) 0 % (1.0-6.0); HEMATOCRIT 44.4 % (41-53); HEMOGLOBIN 15.1 g/dL (13.5-17.5); LYMPHOCYTES # (AUTO) 1.3 K/uL (1.0-4.8); LYMPHOCYTES % (AUTO) 15.3 % (22.0-44.0); MEAN CORPUSCULAR HEMOGLOBIN 31.4 pg (26.0-34.0); MEAN CORPUSCULAR HGB CONC 34.1 G/dL (31.0-37.0); MEAN CORPUSCULAR VOLUME 92 fL (80-100); MONOCYTES # (AUTO) 0.8 K/uL (0.1-1.0); MONOCYTES % (AUTO) 8.9 % (2.0-9.0); NEUTROPHILS # (AUTO) 6.5 K/uL (1.8-7.7); NEUTROPHILS % (AUTO) 75.6 % (40.0-70.0); PLATELET COUNT (AUTO) 214 K/uL (150-450); RED BLOOD CELL COUNT(AUTO) 4.81 MIL/uL (4.50-5.90); RED CELL DISTRIBUTION WIDTH 13.4 % (11.5-14.5)
[2019-03-14 23:07] LABS: ANION GAP 9 mmol/L (8-16); CARBON DIOXIDE 25 mmol/L (22-29); CHLORIDE 101 mmol/L (98-107); CREATININE 1.46 mg/dL (0.60-1.30); GLOMERULAR FILTR. RATE CALC 50 mL/min (>60); GLUCOSE,RANDOM 101 mg/dL (70-110); POTASSIUM 3.9 mmol/L (3.5-5.1); SODIUM SERUM 135 mmol/L (136-145); UREA NITROGEN, BLOOD 20 mg/dL (7-18)
[2019-03-14 23:13] LABS: ALANINE AMINOTRANSFERASE 85 U/L (12-78); ALBUMIN 3.3 g/dL (3.4-5.0); ALKALINE PHOSPHATASE 119 U/L (46-116); ASPARTATE AMINOTRANSFERASE 92 U/L (15-37); BILIRUBIN,TOTAL 0.7 mg/dL (0.1-1.0)
[2019-03-15 00:59] LABS: AMPHET/METH SCREEN,URINE POSITIVE (NEGATIVE); BARBITURATE SCREEN, URINE NEGATIVE (NEGATIVE); BENZODIAZEPINES SCREEN,URINE NEGATIVE (NEGATIVE); CANNABINOID SCREEN,URINE NEGATIVE (NEGATIVE); COCAINE SCREEN,URINE NEGATIVE (NEGATIVE); METHADONE SCREEN, URINE NEGATIVE (NEGATIVE); OPIATE SCREEN,URINE NEGATIVE (NEGATIVE)
[2019-03-15 01:01] LABS: PHENCYCLIDINE SCREEN,URINE NEGATIVE (NEGATIVE)
[2019-03-15] MEDS ORDERED: BACITRACIN 0.9 GM PACKET OINTMENT TP ONE (03:15)
[2019-03-15] MEDS ORDERED: ZOLPIDEM TARTRATE 10 MG TABLET PO PRN (03:30)
[2019-03-15] MEDS ORDERED: HALOPERIDOL 5 MG TABLET PO PRN (03:30)
[2019-03-15] MEDS ORDERED: NICOTINE 14 MG/24 HOUR PATCH TD PRN (08:45)
[2019-03-15] MEDS ORDERED: LOPERAMIDE HCL 2 MG CAPSULE PO PRN (08:45)
[2019-03-15] MEDS ORDERED: ALBUTEROL SULFATE HFA 90 MCG/PUFF 8 GM INHALER IH PRN (08:45)
[2019-03-15] MEDS ORDERED: CloNIDine HCL 0.1 MG TABLET PO PRN (08:45)
[2019-03-15] MEDS ORDERED: ONDANSETRON HCL 4 MG TABLET PO PRN (08:45)
[2019-03-15] MEDS ORDERED: MAG HYDROX/AL HYDROX/SIMETH ES 30 ML SUSPENSION UDCUP PO PRN (08:45)
[2019-03-15] MEDS ORDERED: PETROLATUM,WHITE 28 GM JELLY TP PRN (08:45)
[2019-03-15] MEDS ORDERED: TraMADol HCL 50 MG TABLET PO PRN (08:45)
[2019-03-15] MEDS ORDERED: GuaiFENesin/D-METHORPHAN [SUGAR-FREE] 200-20MG/10 ML SYRUP UDCUP PO PRN (08:45)
[2019-03-15] MEDS: AmLODIPine BESYLATE 5 MG TABLET PO SCH (09:07)
[2019-03-15 16:18] VITALS: BP 124/82
[2019-03-16 05:37] VITALS: BP 125/60
[2019-03-16] MEDS: AmLODIPine BESYLATE 5 MG TABLET PO SCH (09:13)
[2019-03-16] MEDS: BuPROPion HCL XL 150 MG ER TABLET PO SCH (12:19)
[2019-03-16] MEDS: OLANZapine 5 MG TABLET PO SCH ×2 (12:19→16:25)
[2019-03-16 16:00] VITALS: BP 111/83
[2019-03-16] MEDS: BACITRACIN 28.4 GM OINTMENT TP SCH (16:25)
[2019-03-16] MEDS: LORazepam 2 MG TABLET PO PRN (16:25)
[2019-03-17 06:15] VITALS: BP 117/73
[2019-03-17 08:00] VITALS: BP 115/65
[2019-03-17 08:58] LABS: CHOL/HDL RATIO 4.4 (4.2-7.3)
[2019-03-17] MEDS: AmLODIPine BESYLATE 5 MG TABLET PO SCH (09:25)
[2019-03-17] MEDS: BuPROPion HCL XL 150 MG ER TABLET PO SCH (09:25)
[2019-03-17] MEDS: OLANZapine 5 MG TABLET PO SCH ×2 (09:25→16:37)
[2019-03-17] MEDS: BACITRACIN 28.4 GM OINTMENT TP SCH ×2 (10:43→16:37)
[2019-03-17] MEDS: LORazepam 2 MG TABLET PO PRN (16:37)
[2019-03-18] MEDS ORDERED: GuaiFENesin/D-METHORPHAN [SUGAR-FREE] 200-20MG/10 ML SYRUP UDCUP PO PRN (00:45)
[2019-03-18 03:09] VITALS: BP 140/96
[2019-03-18 08:28] VITALS: BP 133/84
[2019-03-18] MEDS: BuPROPion HCL XL 150 MG ER TABLET PO SCH (08:53)
[2019-03-18] MEDS: BACITRACIN 28.4 GM OINTMENT TP SCH ×2 (08:53→16:58)
[2019-03-18] MEDS: LORazepam 2 MG TABLET PO PRN ×2 (08:53→17:19)
[2019-03-18] MEDS: AmLODIPine BESYLATE 5 MG TABLET PO SCH (08:53)
[2019-03-18] MEDS: OLANZapine 5 MG TABLET PO SCH (08:53)
[2019-03-18] MEDS ORDERED: OLANZapine 5 MG TABLET PO ONE (09:45)
[2019-03-18 16:00] VITALS: BP 113/74
[2019-03-18] MEDS: MAGNESIUM HYDROXIDE SUSPENSION 30 ML UDCUP PO PRN (16:55)
[2019-03-18] MEDS: OLANZapine 10 MG TABLET PO SCH (17:19)
[2019-03-19 06:38] VITALS: BP 116/78
[2019-03-19] MEDS: AmLODIPine BESYLATE 5 MG TABLET PO SCH (08:32)
[2019-03-19] MEDS: DOCUSATE SODIUM 100 MG CAPSULE PO PRN (08:32)
[2019-03-19] MEDS: BuPROPion HCL XL 150 MG ER TABLET PO SCH (08:32)
[2019-03-19] MEDS: OLANZapine 10 MG TABLET PO SCH ×2 (08:33→16:50)
[2019-03-19] MEDS: BACITRACIN 28.4 GM OINTMENT TP SCH ×2 (08:34→16:50)
[2019-03-19 16:10] VITALS: BP 115/60
[2019-03-19] MEDS ORDERED: BISACODYL 10 MG RECTAL RECTAL SUPPOSITORY PR PRN (16:15)
[2019-03-19] MEDS: LORazepam 2 MG TABLET PO PRN (16:50)
[2019-03-20 06:31] VITALS: BP 121/77
[2019-03-20 08:55] LABS: CALCIUM, TOTAL 8.6 mg/dL (8.8-10.5); CREATININE 1.25 mg/dL (0.60-1.30)
[2019-03-20] MEDS: OLANZapine 10 MG TABLET PO SCH ×2 (09:00→16:22)
[2019-03-20] MEDS: AmLODIPine BESYLATE 5 MG TABLET PO SCH (09:00)
[2019-03-20] MEDS: BuPROPion HCL XL 150 MG ER TABLET PO SCH (09:01)
[2019-03-20] MEDS: BACITRACIN 28.4 GM OINTMENT TP SCH ×2 (09:01→16:22)
[2019-03-20] MEDS: MAGNESIUM HYDROXIDE SUSPENSION 30 ML UDCUP PO PRN (09:48)
[2019-03-20] MEDS: DOCUSATE SODIUM 100 MG CAPSULE PO PRN (09:49)
[2019-03-20 14:02] VITALS: BP 124/76
[2019-03-20 18:10] VITALS: BP 120/64
[2019-03-21 05:14] VITALS: BP 116/68
[2019-03-21 07:39] LABS: ANION GAP 10 mmol/L (8-16); CALCIUM, TOTAL 8.7 mg/dL (8.8-10.5); CARBON DIOXIDE 25 mmol/L (22-29); CHLORIDE 106 mmol/L (98-107); CREATININE 1.24 mg/dL (0.60-1.30); GLOMERULAR FILTR. RATE CALC > 60 mL/min (>60); GLUCOSE,RANDOM 111 mg/dL (70-110); POTASSIUM 4.9 mmol/L (3.5-5.1); SODIUM SERUM 141 mmol/L (136-145); UREA NITROGEN, BLOOD 23 mg/dL (7-18)
[2019-03-21 08:16] VITALS: BP 129/71
[2019-03-21] MEDS: AmLODIPine BESYLATE 5 MG TABLET PO SCH (08:56)
[2019-03-21] MEDS: OLANZapine 10 MG TABLET PO SCH ×2 (08:56→16:43)
[2019-03-21] MEDS: BuPROPion HCL XL 150 MG ER TABLET PO SCH (08:56)
[2019-03-21] MEDS: BACITRACIN 28.4 GM OINTMENT TP SCH ×2 (09:21→16:43)
[2019-03-21 16:00] VITALS: BP_SYST 126
[2019-03-21] MEDS: LORazepam 2 MG TABLET PO PRN (16:44)
[2019-03-22 08:00] VITALS: BP 145/100
[2019-03-22] MEDS: BuPROPion HCL XL 150 MG ER TABLET PO SCH (08:12)
[2019-03-22] MEDS: BACITRACIN 28.4 GM OINTMENT TP SCH ×2 (08:13→16:24)
[2019-03-22] MEDS: AmLODIPine BESYLATE 5 MG TABLET PO SCH (08:13)
[2019-03-22] MEDS: LORazepam 2 MG TABLET PO PRN ×2 (08:13→16:24)
[2019-03-22] MEDS: OLANZapine 10 MG TABLET PO SCH ×2 (08:13→16:24)
[2019-03-22 16:00] VITALS: BP 131/89
[2019-03-23 00:33] VITALS: BP 157/95
[2019-03-23 08:00] VITALS: BP 127/94
[2019-03-23 08:02] LABS: CALCIUM, TOTAL 8.4 mg/dL (8.8-10.5); CREATININE 1.34 mg/dL (0.60-1.30); POTASSIUM 4.3 mmol/L (3.5-5.1)
[2019-03-23] MEDS: AmLODIPine BESYLATE 5 MG TABLET PO SCH (08:49)
[2019-03-23] MEDS: OLANZapine 10 MG TABLET PO SCH ×2 (08:49→17:05)
[2019-03-23] MEDS: BuPROPion HCL XL 150 MG ER TABLET PO SCH (08:49)
[2019-03-23] MEDS: BACITRACIN 28.4 GM OINTMENT TP SCH ×2 (08:51→17:06)
[2019-03-23 17:23] VITALS: BP 125/87
[2019-03-24] MEDS: OLANZapine 10 MG TABLET PO SCH ×2 (08:20→16:08)
[2019-03-24] MEDS: BuPROPion HCL XL 150 MG ER TABLET PO SCH (08:21)
[2019-03-24] MEDS: AmLODIPine BESYLATE 5 MG TABLET PO SCH (08:21)
[2019-03-24] MEDS: BACITRACIN 28.4 GM OINTMENT TP SCH ×2 (08:22→16:08)
[2019-03-24] MEDS ORDERED: OLAN10TA3 PO (14:59)
[2019-03-24] MEDS ORDERED: BUPR-93 PO (14:59)
[2019-03-24] MEDS ORDERED: BACI30OI6 TP (14:59)
[2019-03-24] MEDS ORDERED: AMLO5TAB9 PO (14:59)
== END 2019-03-24 18:00 | disposition home or self-care (01) | DRG 750 ==
LOC: EMS 21:31 → B3A 03-15 15:49
PROVIDERS: ADMIT Psychiatry & Neurology Child & Adolescent Psychiatry; ATTEND Psychiatry & Neurology Child & Adolescent Psychiatry
DX: F25.1 Schizoaffective disorder, depressive type (principal); N17.9 Acute kidney failure, unspecified; R45.851 Suicidal ideations; E11.9 Type 2 diabetes mellitus without complications; I10 Essential (primary) hypertension; J45.909 Unspecified asthma, uncomplicated; B19.20 Unspecified viral hepatitis C without hepatic coma; F11.90 Opioid use, unspecified, uncomplicated; F15.90 Other stimulant use, unspecified, uncomplicated; Z86.59 Personal history of other mental and behavioral disorders; Z87.891 Personal history of nicotine dependence
CPT/HCPCS: 83735; G0480

== ENCOUNTER 2019-04-01 17:03 | Inpatient (IN) | payer MEDICAID ==
[~2019-04-01] VITALS: Ht 182.9 cm; Wt 113.9 kg
[~2019-04-01 17:03] MED LIST changes: +AMLO5TAB9 PO; -ARIP10TA8 PO; +BACI30OI6 TP; +OLAN10TA3 PO; -OLAN5TAB2 PO
[2019-04-01] MEDS ORDERED: ARIP10TA8 PO (17:37)
[2019-04-01 20:00] LABS: BASOPHILS % (AUTO) 0.6 % (0.0-2.0); EOSINOPHILS % (AUTO) 3.3 % (1.0-6.0); HEMATOCRIT 41.8 % (41-53); HEMOGLOBIN 13.8 g/dL (13.5-17.5); LYMPHOCYTES % (AUTO) 37.8 % (22.0-44.0); MEAN CORPUSCULAR HEMOGLOBIN 30.6 pg (26.0-34.0); MEAN CORPUSCULAR VOLUME 93 fL (80-100); MONOCYTES # (AUTO) 0.4 K/uL (0.1-1.0); MONOCYTES % (AUTO) 7.8 % (2.0-9.0); NEUTROPHILS # (AUTO) 2.6 K/uL (1.8-7.7); NEUTROPHILS % (AUTO) 50.5 % (40.0-70.0); PLATELET COUNT (AUTO) 244 K/uL (150-450); RED BLOOD CELL COUNT(AUTO) 4.49 MIL/uL (4.50-5.90); RED CELL DISTRIBUTION WIDTH 13.6 % (11.5-14.5)
[2019-04-01 20:17] LABS: ANION GAP 9 mmol/L (8-16); CALCIUM, TOTAL 8.7 mg/dL (8.8-10.5); CARBON DIOXIDE 25 mmol/L (22-29); CHLORIDE 106 mmol/L (98-107); CREATININE 1.18 mg/dL (0.60-1.30); GLOMERULAR FILTR. RATE CALC > 60 mL/min (>60); GLUCOSE,RANDOM 148 mg/dL (70-110); POTASSIUM 4.3 mmol/L (3.5-5.1); SODIUM SERUM 140 mmol/L (136-145); UREA NITROGEN, BLOOD 20 mg/dL (7-18)
[2019-04-01 20:23] LABS: ALANINE AMINOTRANSFERASE 73 U/L (12-78); ALBUMIN 2.9 g/dL (3.4-5.0); ALKALINE PHOSPHATASE 189 U/L (46-116); ASPARTATE AMINOTRANSFERASE 45 U/L (15-37); BILIRUBIN,TOTAL 0.2 mg/dL (0.1-1.0); TOTAL PROTEIN, SERUM 7.2 g/dL (6.4-8.2)
[2019-04-01 22:31] LABS: AMPHET/METH SCREEN,URINE POSITIVE (NEGATIVE); BARBITURATE SCREEN, URINE NEGATIVE (NEGATIVE); BENZODIAZEPINES SCREEN,URINE NEGATIVE (NEGATIVE); CANNABINOID SCREEN,URINE NEGATIVE (NEGATIVE); COCAINE SCREEN,URINE NEGATIVE (NEGATIVE); METHADONE SCREEN, URINE NEGATIVE (NEGATIVE); OPIATE SCREEN,URINE NEGATIVE (NEGATIVE)
[2019-04-01 22:32] LABS: PHENCYCLIDINE SCREEN,URINE NEGATIVE (NEGATIVE)
[2019-04-02] MEDS ORDERED: BACITRACIN 0.9 GM PACKET OINTMENT TP ONE (00:30)
[2019-04-02] MEDS ORDERED: HALOPERIDOL 5 MG TABLET PO PRN (01:45)
[2019-04-02 04:30] VITALS: BP 139/84
[2019-04-02] MEDS ORDERED: GuaiFENesin/D-METHORPHAN [SUGAR-FREE] 200-20MG/10 ML SYRUP UDCUP PO PRN (14:00)
[2019-04-02] MEDS ORDERED: LOPERAMIDE HCL 2 MG CAPSULE PO PRN (14:00)
[2019-04-02] MEDS ORDERED: DOCUSATE SODIUM 100 MG CAPSULE PO PRN (14:00)
[2019-04-02] MEDS ORDERED: PETROLATUM,WHITE 28 GM JELLY TP PRN (14:00)
[2019-04-02] MEDS ORDERED: NICOTINE 14 MG/24 HOUR PATCH TD PRN (14:00)
[2019-04-02] MEDS ORDERED: ONDANSETRON HCL 4 MG TABLET PO PRN (14:00)
[2019-04-02] MEDS ORDERED: ALBUTEROL SULFATE HFA 90 MCG/PUFF 8 GM INHALER IH PRN (14:00)
[2019-04-02] MEDS ORDERED: CloNIDine HCL 0.1 MG TABLET PO PRN (14:00)
[2019-04-02] MEDS ORDERED: MAG HYDROX/AL HYDROX/SIMETH ES 30 ML SUSPENSION UDCUP PO PRN (14:00)
[2019-04-02] MEDS ORDERED: MAGNESIUM HYDROXIDE SUSPENSION 30 ML UDCUP PO PRN (14:00)
[2019-04-02] MEDS: BuPROPion HCL 100 MG SR TABLET PO SCH (14:21)
[2019-04-02] MEDS: ARIPiprazole 10 MG TABLET PO SCH (14:21)
[2019-04-02 16:26] VITALS: BP 138/80
[2019-04-02] MEDS: OLANZapine 10 MG TABLET PO SCH (20:21)
[2019-04-02] MEDS: LORazepam 2 MG TABLET PO PRN (20:21)
[2019-04-03 02:43] VITALS: BP 117/89
[2019-04-03 07:39] LABS: BASOPHILS % (AUTO) 0.7 % (0.0-2.0); HEMATOCRIT 39.8 % (41-53); HEMOGLOBIN 13.6 g/dL (13.5-17.5); LYMPHOCYTES # (AUTO) 2.3 K/uL (1.0-4.8); LYMPHOCYTES % (AUTO) 45.2 % (22.0-44.0); MEAN CORPUSCULAR HEMOGLOBIN 31.6 pg (26.0-34.0); MEAN CORPUSCULAR HGB CONC 34.3 G/dL (31.0-37.0); MEAN CORPUSCULAR VOLUME 92 fL (80-100); MONOCYTES # (AUTO) 0.4 K/uL (0.1-1.0); MONOCYTES % (AUTO) 7.7 % (2.0-9.0); NEUTROPHILS # (AUTO) 2.1 K/uL (1.8-7.7); NEUTROPHILS % (AUTO) 40.4 % (40.0-70.0); PLATELET COUNT (AUTO) 287 K/uL (150-450); RED BLOOD CELL COUNT(AUTO) 4.31 MIL/uL (4.50-5.90); RED CELL DISTRIBUTION WIDTH 13.4 % (11.5-14.5)
[2019-04-03 08:01] LABS: CHOL/HDL RATIO 2.8 (4.2-7.3)
[2019-04-03] MEDS: ARIPiprazole 10 MG TABLET PO SCH (09:05)
[2019-04-03] MEDS: BuPROPion HCL 100 MG SR TABLET PO SCH (09:05)
[2019-04-03] MEDS: AmLODIPine BESYLATE 5 MG TABLET PO SCH (09:05)
[2019-04-03 16:30] VITALS: BP 116/80
[2019-04-03 18:44] VITALS: BP 116/80
[2019-04-03] MEDS: ZOLPIDEM TARTRATE 10 MG TABLET PO PRN (20:29)
[2019-04-03] MEDS: OLANZapine 10 MG TABLET PO SCH (20:29)
[2019-04-04 05:58] VITALS: BP 100/74
[2019-04-04 08:18] VITALS: BP 120/72
[2019-04-04] MEDS: BuPROPion HCL 100 MG SR TABLET PO SCH (09:00)
[2019-04-04] MEDS: ARIPiprazole 10 MG TABLET PO SCH (09:01)
[2019-04-04] MEDS: AmLODIPine BESYLATE 5 MG TABLET PO SCH (09:02)
[2019-04-04 16:33] VITALS: BP 130/88
[2019-04-04] MEDS: BACITRACIN 28.4 GM OINTMENT TP SCH (17:00)
[2019-04-04] MEDS: OLANZapine 10 MG TABLET PO SCH (21:02)
[2019-04-05 05:37] VITALS: BP 128/79
[2019-04-05 08:28] VITALS: BP 123/86
[2019-04-05] MEDS: BuPROPion HCL 100 MG SR TABLET PO SCH (09:14)
[2019-04-05] MEDS: ARIPiprazole 10 MG TABLET PO SCH (09:14)
[2019-04-05] MEDS: AmLODIPine BESYLATE 5 MG TABLET PO SCH (09:15)
[2019-04-05] MEDS: BACITRACIN 28.4 GM OINTMENT TP SCH ×2 (09:21→16:53)
[2019-04-05] MEDS: TraMADol HCL 50 MG TABLET PO PRN ×2 (10:37→18:54)
[2019-04-05 16:27] VITALS: BP 109/82
[2019-04-05 18:56] VITALS: BP 113/82
[2019-04-05] MEDS: OLANZapine 10 MG TABLET PO SCH (20:44)
[2019-04-06 06:20] VITALS: BP 138/74
[2019-04-06] MEDS: AmLODIPine BESYLATE 5 MG TABLET PO SCH (08:27)
[2019-04-06] MEDS: BuPROPion HCL XL 150 MG ER TABLET PO SCH (08:27)
[2019-04-06] MEDS: ARIPiprazole 10 MG TABLET PO SCH (08:28)
[2019-04-06] MEDS: BACITRACIN 28.4 GM OINTMENT TP SCH ×2 (08:29→16:53)
[2019-04-06] MEDS: DiphenhydrAMINE/ZINC ACET 30 GM CREAM TP PRN (08:30)
[2019-04-06] MEDS: TraMADol HCL 50 MG TABLET PO PRN ×2 (08:42→16:53)
[2019-04-06 08:45] VITALS: BP 124/86
[2019-04-06 16:23] VITALS: BP 134/66
[2019-04-06] MEDS: LORazepam 2 MG TABLET PO PRN (16:53)
[2019-04-06] MEDS: OLANZapine 10 MG TABLET PO SCH (20:14)
[2019-04-06] MEDS: ZOLPIDEM TARTRATE 10 MG TABLET PO PRN (20:14)
[2019-04-07 02:21] VITALS: BP 142/78
[2019-04-07] MEDS: ARIPiprazole 10 MG TABLET PO SCH (08:39)
[2019-04-07] MEDS: BuPROPion HCL XL 150 MG ER TABLET PO SCH (08:39)
[2019-04-07] MEDS: AmLODIPine BESYLATE 5 MG TABLET PO SCH (08:39)
[2019-04-07 08:40] VITALS: BP 129/70
[2019-04-07] MEDS: TraMADol HCL 50 MG TABLET PO PRN ×2 (08:50→17:08)
[2019-04-07] MEDS: BACITRACIN 28.4 GM OINTMENT TP SCH ×2 (08:51→16:10)
[2019-04-07 16:14] VITALS: BP 134/95
[2019-04-07] MEDS ORDERED: FAMOTIDINE 20 MG TABLET PO ONE (17:15)
[2019-04-07] MEDS ORDERED: DiphenhydrAMINE HCL 25 MG CAPSULE PO ONE (17:15)
[2019-04-07] MEDS ORDERED: PredniSONE 10 MG TABLET PO ONE (17:15)
[2019-04-07] MEDS: LORazepam 2 MG TABLET PO PRN (18:54)
[2019-04-07] MEDS: ZOLPIDEM TARTRATE 10 MG TABLET PO PRN (20:37)
[2019-04-07] MEDS: OLANZapine 10 MG TABLET PO SCH (20:37)
[2019-04-08 00:32] VITALS: BP 117/68
[2019-04-08] MEDS: AmLODIPine BESYLATE 5 MG TABLET PO SCH (08:03)
[2019-04-08] MEDS: BACITRACIN 28.4 GM OINTMENT TP SCH ×2 (08:03→16:44)
[2019-04-08] MEDS: ARIPiprazole 10 MG TABLET PO SCH (08:03)
[2019-04-08] MEDS: BuPROPion HCL XL 150 MG ER TABLET PO SCH (08:03)
[2019-04-08 08:04] VITALS: BP 133/82
[2019-04-08] MEDS: TraMADol HCL 50 MG TABLET PO PRN ×2 (08:04→16:45)
[2019-04-08 08:32] VITALS: BP 133/82
[2019-04-08 16:27] VITALS: BP 133/81
[2019-04-08] MEDS: LORazepam 2 MG TABLET PO PRN (16:44)
[2019-04-08] MEDS: DiphenhydrAMINE/ZINC ACET 30 GM CREAM TP PRN (16:44)
[2019-04-08] MEDS: OLANZapine 10 MG TABLET PO SCH (20:16)
[2019-04-08] MEDS: ZOLPIDEM TARTRATE 10 MG TABLET PO PRN (20:16)
[2019-04-09 01:30] VITALS: BP 134/77
[2019-04-09] MEDS: ARIPiprazole 10 MG TABLET PO SCH (08:11)
[2019-04-09] MEDS: BuPROPion HCL XL 150 MG ER TABLET PO SCH (08:12)
[2019-04-09] MEDS: AmLODIPine BESYLATE 5 MG TABLET PO SCH (08:12)
[2019-04-09] MEDS: TraMADol HCL 50 MG TABLET PO PRN ×2 (08:12→17:04)
[2019-04-09] MEDS: BACITRACIN 28.4 GM OINTMENT TP SCH ×2 (08:13→17:04)
[2019-04-09 08:40] VITALS: BP 116/72
[2019-04-09 16:21] VITALS: BP 122/81
[2019-04-09] MEDS: BENZOCAINE 10% 7 GM GEL TP SCH (17:13)
[2019-04-09] MEDS: OLANZapine 10 MG TABLET PO SCH (20:46)
[2019-04-09] MEDS: ZOLPIDEM TARTRATE 10 MG TABLET PO PRN (20:47)
[2019-04-10 04:33] VITALS: BP 132/74
[2019-04-10] MEDS: BuPROPion HCL XL 150 MG ER TABLET PO SCH (08:26)
[2019-04-10] MEDS: TraMADol HCL 50 MG TABLET PO PRN ×2 (08:26→17:25)
[2019-04-10] MEDS: AmLODIPine BESYLATE 5 MG TABLET PO SCH (08:26)
[2019-04-10] MEDS: ARIPiprazole 10 MG TABLET PO SCH (08:26)
[2019-04-10] MEDS: DiphenhydrAMINE/ZINC ACET 30 GM CREAM TP PRN (08:55)
[2019-04-10] MEDS: BENZOCAINE 10% 7 GM GEL TP SCH ×2 (09:00→16:49)
[2019-04-10] MEDS: BACITRACIN 28.4 GM OINTMENT TP SCH ×2 (09:00→16:50)
[2019-04-10 13:30] VITALS: BP 112/67
[2019-04-10] MEDS: LORazepam 2 MG TABLET PO PRN (14:58)
[2019-04-10 16:16] VITALS: BP 139/80
[2019-04-10] MEDS: OLANZapine 10 MG TABLET PO SCH (20:13)
[2019-04-11 00:46] VITALS: BP 122/78
[2019-04-11 08:00] VITALS: BP 109/89
[2019-04-11] MEDS: LORazepam 2 MG TABLET PO PRN ×2 (08:18→16:22)
[2019-04-11] MEDS: BACITRACIN 28.4 GM OINTMENT TP SCH ×2 (08:18→17:15)
[2019-04-11] MEDS: ARIPiprazole 10 MG TABLET PO SCH (08:18)
[2019-04-11] MEDS: BuPROPion HCL XL 150 MG ER TABLET PO SCH (08:18)
[2019-04-11] MEDS: AmLODIPine BESYLATE 5 MG TABLET PO SCH (08:18)
[2019-04-11] MEDS: BENZOCAINE 10% 7 GM GEL TP SCH ×2 (08:18→18:09)
[2019-04-11 09:11] VITALS: BP 118/82
[2019-04-11] MEDS: TraMADol HCL 50 MG TABLET PO PRN ×2 (09:11→19:25)
[2019-04-11 10:11] VITALS: BP 124/86
[2019-04-11 16:23] VITALS: BP 135/91
[2019-04-11 19:25] VITALS: BP 128/85
[2019-04-11] MEDS: OLANZapine 10 MG TABLET PO SCH (20:28)
[2019-04-12 02:12] VITALS: BP 123/74
[2019-04-12 02:37] VITALS: BP 123/74
[2019-04-12] MEDS: BuPROPion HCL XL 150 MG ER TABLET PO SCH (08:32)
[2019-04-12] MEDS: ARIPiprazole 10 MG TABLET PO SCH (08:32)
[2019-04-12] MEDS: BACITRACIN 28.4 GM OINTMENT TP SCH ×2 (08:32→16:02)
[2019-04-12] MEDS: AmLODIPine BESYLATE 5 MG TABLET PO SCH (08:32)
[2019-04-12] MEDS: TraMADol HCL 50 MG TABLET PO PRN ×2 (08:33→16:33)
[2019-04-12] MEDS: LORazepam 2 MG TABLET PO PRN ×2 (08:33→15:58)
[2019-04-12] MEDS: BENZOCAINE 10% 7 GM GEL TP SCH ×2 (08:33→15:59)
[2019-04-12 09:12] VITALS: BP 140/90
[2019-04-12 16:13] VITALS: BP 127/60
[2019-04-12] MEDS: ZOLPIDEM TARTRATE 10 MG TABLET PO PRN (20:14)
[2019-04-12] MEDS: OLANZapine 10 MG TABLET PO SCH (20:14)
[2019-04-13 02:49] VITALS: BP 124/80
[2019-04-13 08:00] VITALS: BP 142/74
[2019-04-13] MEDS: ARIPiprazole 10 MG TABLET PO SCH (09:33)
[2019-04-13] MEDS: BuPROPion HCL XL 150 MG ER TABLET PO SCH (09:33)
[2019-04-13] MEDS: AmLODIPine BESYLATE 5 MG TABLET PO SCH (09:34)
[2019-04-13] MEDS: BACITRACIN 28.4 GM OINTMENT TP SCH ×2 (09:34→16:46)
[2019-04-13] MEDS: BENZOCAINE 10% 7 GM GEL TP SCH ×2 (09:34→16:43)
[2019-04-13 11:00] VITALS: BP 137/79
[2019-04-13] MEDS: TraMADol HCL 50 MG TABLET PO PRN (11:06)
[2019-04-13 16:12] VITALS: BP 120/86
[2019-04-13] MEDS: OLANZapine 10 MG TABLET PO SCH (20:38)
[2019-04-13] MEDS: ZOLPIDEM TARTRATE 10 MG TABLET PO PRN (20:38)
[2019-04-14 02:22] VITALS: BP 132/90
[2019-04-14] MEDS: ARIPiprazole 10 MG TABLET PO SCH (08:00)
[2019-04-14] MEDS: BuPROPion HCL XL 150 MG ER TABLET PO SCH (08:00)
[2019-04-14] MEDS: AmLODIPine BESYLATE 5 MG TABLET PO SCH (08:00)
[2019-04-14] MEDS: DiphenhydrAMINE/ZINC ACET 30 GM CREAM TP PRN ×2 (08:01→16:27)
[2019-04-14] MEDS: BACITRACIN 28.4 GM OINTMENT TP SCH ×2 (08:03→16:10)
[2019-04-14 08:19] VITALS: BP 137/98
[2019-04-14] MEDS: BENZOCAINE 10% 7 GM GEL TP SCH ×2 (09:19→16:10)
[2019-04-14 16:00] VITALS: BP 142/84
[2019-04-14] MEDS: TraMADol HCL 50 MG TABLET PO PRN (16:27)
[2019-04-14] MEDS: ZOLPIDEM TARTRATE 10 MG TABLET PO PRN (20:22)
[2019-04-14] MEDS: OLANZapine 10 MG TABLET PO SCH (20:22)
[2019-04-15 05:42] VITALS: BP 122/86
[2019-04-15 05:43] VITALS: BP 134/80
[2019-04-15] MEDS: TraMADol HCL 50 MG TABLET PO PRN ×2 (06:27→14:32)
[2019-04-15] MEDS: ARIPiprazole 10 MG TABLET PO SCH (08:24)
[2019-04-15] MEDS: AmLODIPine BESYLATE 5 MG TABLET PO SCH (08:24)
[2019-04-15] MEDS: DiphenhydrAMINE/ZINC ACET 30 GM CREAM TP PRN (08:25)
[2019-04-15] MEDS: BuPROPion HCL XL 150 MG ER TABLET PO SCH (08:25)
[2019-04-15 08:52] VITALS: BP 128/80
[2019-04-15] MEDS: BENZOCAINE 10% 7 GM GEL TP SCH ×2 (10:29→17:00)
[2019-04-15] MEDS: BACITRACIN 28.4 GM OINTMENT TP SCH ×2 (10:30→17:02)
[2019-04-15 16:40] VITALS: BP 153/83
[2019-04-15] MEDS: OLANZapine 10 MG TABLET PO SCH (20:50)
[2019-04-16 04:50] VITALS: BP 132/81
[2019-04-16] MEDS: TraMADol HCL 50 MG TABLET PO PRN ×2 (04:58→13:15)
[2019-04-16 05:16] VITALS: BP 112/88
[2019-04-16] MEDS: ARIPiprazole 10 MG TABLET PO SCH (08:19)
[2019-04-16] MEDS: AmLODIPine BESYLATE 5 MG TABLET PO SCH (08:19)
[2019-04-16] MEDS: BACITRACIN 28.4 GM OINTMENT TP SCH ×2 (08:21→16:05)
[2019-04-16] MEDS: BENZOCAINE 10% 7 GM GEL TP SCH ×2 (08:22→16:05)
[2019-04-16] MEDS: BuPROPion HCL XL 150 MG ER TABLET PO SCH (08:23)
[2019-04-16 08:28] VITALS: BP 133/88
[2019-04-16 13:15] VITALS: BP 118/98
[2019-04-16] MEDS: AMOX TR/POT CLAV 500 MG/125 MG TABLET PO SCH (16:05)
[2019-04-16 17:34] VITALS: BP 145/86
[2019-04-16] MEDS: ZOLPIDEM TARTRATE 10 MG TABLET PO PRN (20:11)
[2019-04-16] MEDS: OLANZapine 10 MG TABLET PO SCH (20:11)
[2019-04-17] MEDS: TraMADol HCL 50 MG TABLET PO PRN ×2 (05:21→14:01)
[2019-04-17 05:22] VITALS: BP 132/88
[2019-04-17] MEDS: BuPROPion HCL XL 150 MG ER TABLET PO SCH (08:07)
[2019-04-17] MEDS: AMOX TR/POT CLAV 500 MG/125 MG TABLET PO SCH ×3 (08:07→17:17)
[2019-04-17] MEDS: AmLODIPine BESYLATE 5 MG TABLET PO SCH (08:07)
[2019-04-17] MEDS: BENZOCAINE 10% 7 GM GEL TP SCH ×2 (08:09→17:18)
[2019-04-17] MEDS: ARIPiprazole 10 MG TABLET PO SCH (08:09)
[2019-04-17] MEDS: BACITRACIN 28.4 GM OINTMENT TP SCH ×2 (08:10→17:19)
[2019-04-17 09:29] VITALS: BP 143/90
[2019-04-17] MEDS: LORazepam 2 MG TABLET PO PRN ×2 (11:09→17:18)
[2019-04-17] MEDS: ZOLPIDEM TARTRATE 10 MG TABLET PO PRN (20:18)
[2019-04-17] MEDS: OLANZapine 10 MG TABLET PO SCH (20:18)
[2019-04-17 20:30] VITALS: BP 138/88
[2019-04-18 05:25] VITALS: BP 149/92
[2019-04-18] MEDS: TraMADol HCL 50 MG TABLET PO PRN ×3 (05:26→23:38)
[2019-04-18 08:18] VITALS: BP 144/89
[2019-04-18] MEDS: ARIPiprazole 10 MG TABLET PO SCH (08:27)
[2019-04-18] MEDS: BuPROPion HCL XL 150 MG ER TABLET PO SCH (08:27)
[2019-04-18] MEDS: AmLODIPine BESYLATE 5 MG TABLET PO SCH (08:28)
[2019-04-18] MEDS: AMOX TR/POT CLAV 500 MG/125 MG TABLET PO SCH ×3 (08:28→16:03)
[2019-04-18] MEDS: BACITRACIN 28.4 GM OINTMENT TP SCH ×2 (08:29→16:04)
[2019-04-18] MEDS: BENZOCAINE 10% 7 GM GEL TP SCH ×2 (09:00→16:03)
[2019-04-18 16:00] VITALS: BP 140/84
[2019-04-18] MEDS: LORazepam 2 MG TABLET PO PRN (16:03)
[2019-04-18] MEDS: OLANZapine 10 MG TABLET PO SCH (20:12)
[2019-04-18] MEDS: ZOLPIDEM TARTRATE 10 MG TABLET PO PRN (20:12)
[2019-04-19] VITALS: BP 123/78
[2019-04-19] MEDS: LORazepam 2 MG TABLET PO PRN ×3 (06:21→19:28)
[2019-04-19 08:00] VITALS: BP 139/91
[2019-04-19] MEDS: BuPROPion HCL XL 150 MG ER TABLET PO SCH (09:00)
[2019-04-19] MEDS: BACITRACIN 28.4 GM OINTMENT TP SCH ×2 (09:00→16:02)
[2019-04-19] MEDS: BENZOCAINE 10% 7 GM GEL TP SCH ×2 (09:00→16:01)
[2019-04-19] MEDS: AmLODIPine BESYLATE 5 MG TABLET PO SCH (09:01)
[2019-04-19] MEDS: AMOX TR/POT CLAV 500 MG/125 MG TABLET PO SCH ×3 (09:01→16:02)
[2019-04-19] MEDS: ARIPiprazole 10 MG TABLET PO SCH (09:01)
[2019-04-19] MEDS: TraMADol HCL 50 MG TABLET PO PRN (16:02)
[2019-04-19 16:07] VITALS: BP 139/92
[2019-04-19 16:28] VITALS: BP 139/92
[2019-04-19] MEDS: OLANZapine 10 MG TABLET PO SCH (20:07)
[2019-04-19] MEDS: ZOLPIDEM TARTRATE 10 MG TABLET PO PRN (20:07)
[2019-04-20] MEDS: TraMADol HCL 50 MG TABLET PO PRN ×3 (04:46→20:56)
[2019-04-20 04:51] VITALS: BP 155/107
[2019-04-20] MEDS: AMOX TR/POT CLAV 500 MG/125 MG TABLET PO SCH ×3 (08:11→17:50)
[2019-04-20] MEDS: AmLODIPine BESYLATE 5 MG TABLET PO SCH (08:11)
[2019-04-20] MEDS: ARIPiprazole 10 MG TABLET PO SCH (08:11)
[2019-04-20] MEDS: BuPROPion HCL XL 150 MG ER TABLET PO SCH (08:11)
[2019-04-20] MEDS: DiphenhydrAMINE/ZINC ACET 30 GM CREAM TP PRN (08:13)
[2019-04-20] MEDS: BENZOCAINE 10% 7 GM GEL TP SCH ×2 (08:14→17:50)
[2019-04-20] MEDS: BACITRACIN 28.4 GM OINTMENT TP SCH ×2 (08:15→17:50)
[2019-04-20 09:30] VITALS: BP 121/77
[2019-04-20 09:31] VITALS: BP 152/95
[2019-04-20] MEDS: LORazepam 2 MG TABLET PO PRN ×2 (11:12→20:55)
[2019-04-20 16:34] VITALS: BP 135/90
[2019-04-20] MEDS: OLANZapine 10 MG TABLET PO SCH (20:55)
[2019-04-20 20:57] VITALS: BP 157/101
[2019-04-21 05:19] VITALS: BP 142/98
[2019-04-21] MEDS: TraMADol HCL 50 MG TABLET PO PRN ×2 (05:28→13:33)
[2019-04-21] MEDS: AmLODIPine BESYLATE 5 MG TABLET PO SCH (08:06)
[2019-04-21] MEDS: BuPROPion HCL XL 150 MG ER TABLET PO SCH (08:06)
[2019-04-21] MEDS: AMOX TR/POT CLAV 500 MG/125 MG TABLET PO SCH ×3 (08:06→17:50)
[2019-04-21] MEDS: ARIPiprazole 10 MG TABLET PO SCH (08:06)
[2019-04-21] MEDS: BENZOCAINE 10% 7 GM GEL TP SCH ×2 (08:09→16:21)
[2019-04-21] MEDS: BACITRACIN 28.4 GM OINTMENT TP SCH (08:09)
[2019-04-21 08:24] VITALS: BP 139/109
[2019-04-21] MEDS: LORazepam 2 MG TABLET PO PRN ×2 (11:00→16:21)
[2019-04-21 16:17] VITALS: BP 131/90
[2019-04-21] MEDS: OLANZapine 10 MG TABLET PO SCH (21:00)
[2019-04-21 23:59] VITALS: BP 149/94
[2019-04-22 01:19] VITALS: BP 149/94
[2019-04-22] MEDS: TraMADol HCL 50 MG TABLET PO PRN ×3 (01:30→17:50)
[2019-04-22] MEDS: LORazepam 2 MG TABLET PO PRN ×3 (05:06→15:51)
[2019-04-22] MEDS: BuPROPion HCL XL 150 MG ER TABLET PO SCH (08:03)
[2019-04-22] MEDS: AmLODIPine BESYLATE 5 MG TABLET PO SCH (08:03)
[2019-04-22] MEDS: ARIPiprazole 10 MG TABLET PO SCH (08:03)
[2019-04-22] MEDS: AMOX TR/POT CLAV 500 MG/125 MG TABLET PO SCH ×3 (08:03→16:00)
[2019-04-22 08:27] VITALS: BP 142/89
[2019-04-22] MEDS: BENZOCAINE 10% 7 GM GEL TP SCH ×2 (09:00→16:00)
[2019-04-22 16:12] VITALS: BP 109/60
[2019-04-22] MEDS: OLANZapine 10 MG TABLET PO SCH (20:28)
[2019-04-22] MEDS: ZOLPIDEM TARTRATE 10 MG TABLET PO PRN (20:28)
[2019-04-23 01:06] VITALS: BP 105/60
[2019-04-23] MEDS: TraMADol HCL 50 MG TABLET PO PRN ×3 (04:04→22:28)
[2019-04-23] MEDS: LORazepam 2 MG TABLET PO PRN ×4 (05:43→18:10)
[2019-04-23] MEDS: AMOX TR/POT CLAV 500 MG/125 MG TABLET PO SCH ×3 (08:02→16:07)
[2019-04-23] MEDS: BuPROPion HCL XL 150 MG ER TABLET PO SCH (08:02)
[2019-04-23] MEDS: ARIPiprazole 10 MG TABLET PO SCH (08:02)
[2019-04-23] MEDS: AmLODIPine BESYLATE 5 MG TABLET PO SCH (08:02)
[2019-04-23] MEDS: BENZOCAINE 10% 7 GM GEL TP SCH ×2 (08:04→16:07)
[2019-04-23 09:08] VITALS: BP 141/76
[2019-04-23] MEDS: DiphenhydrAMINE/ZINC ACET 30 GM CREAM TP PRN (12:48)
[2019-04-23 16:44] VITALS: BP 136/84
[2019-04-23] MEDS: OLANZapine 10 MG TABLET PO SCH (20:29)
[2019-04-23] MEDS: ZOLPIDEM TARTRATE 10 MG TABLET PO PRN (20:29)
[2019-04-23 23:48] VITALS: BP 143/83
[2019-04-24] MEDS: TraMADol HCL 50 MG TABLET PO PRN (06:26)
[2019-04-24] MEDS: AMOX TR/POT CLAV 500 MG/125 MG TABLET PO SCH ×2 (08:05→12:35)
[2019-04-24] MEDS: ARIPiprazole 10 MG TABLET PO SCH (08:05)
[2019-04-24] MEDS: BuPROPion HCL XL 150 MG ER TABLET PO SCH (08:05)
[2019-04-24] MEDS: AmLODIPine BESYLATE 5 MG TABLET PO SCH (08:05)
[2019-04-24] MEDS: BENZOCAINE 10% 7 GM GEL TP SCH (08:07)
[2019-04-24 08:37] VITALS: BP 134/83
[2019-04-24] MEDS ORDERED: ARIP10TA8 PO (09:59)
[2019-04-24] MEDS ORDERED: OLAN10TA20 PO (09:59)
[2019-04-24] MEDS ORDERED: BUPR-47 PO (09:59)
[2019-04-24] MEDS ORDERED: AMLO5TAB9 PO (11:17)
== END 2019-04-24 13:00 | disposition home or self-care (01) | DRG 750 ==
LOC: EMS 17:03 → B3A 04-02 02:00
PROVIDERS: ADMIT Psychiatry & Neurology Psychiatry; ATTEND Psychiatry & Neurology Child & Adolescent Psychiatry
DX: F25.1 Schizoaffective disorder, depressive type (principal); R45.851 Suicidal ideations; E11.9 Type 2 diabetes mellitus without complications; F41.9 Anxiety disorder, unspecified; F11.10 Opioid abuse, uncomplicated; F15.10 Other stimulant abuse, uncomplicated; F17.200 Nicotine dependence, unspecified, uncomplicated; I10 Essential (primary) hypertension; K04.7 Periapical abscess without sinus; J45.909 Unspecified asthma, uncomplicated; F19.10 Other psychoactive substance abuse, uncomplicated; Z59.0 Homelessness; Z79.899 Other long term (current) drug therapy
CPT/HCPCS: 83036; 87081; G0480

== ENCOUNTER 2019-06-07 22:44 | Inpatient (IN) | payer MEDICAID ==
[~2019-06-07] VITALS: Ht 182.9 cm; Wt 103.4 kg
[~2019-06-07 22:44] MED LIST changes: +ARIP10TA8 PO; -BACI30OI6 TP; +BUPR-47 PO; -BUPR-93 PO; +OLAN10TA20 PO; -OLAN10TA3 PO
[2019-06-08 00:44] LABS: BASOPHILS % (AUTO) 0.5 % (0.0-2.0); EOSINOPHILS % (AUTO) 1.2 % (1.0-6.0); HEMATOCRIT 44.1 % (41-53); HEMOGLOBIN 14.7 g/dL (13.5-17.5); LYMPHOCYTES # (AUTO) 2.5 K/uL (1.0-4.8); MEAN CORPUSCULAR HEMOGLOBIN 30.5 pg (26.0-34.0); MEAN CORPUSCULAR HGB CONC 33.3 G/dL (31.0-37.0); MEAN CORPUSCULAR VOLUME 92 fL (80-100); MONOCYTES # (AUTO) 0.4 K/uL (0.1-1.0); MONOCYTES % (AUTO) 6.7 % (2.0-9.0); NEUTROPHILS # (AUTO) 3.3 K/uL (1.8-7.7); NEUTROPHILS % (AUTO) 51.6 % (40.0-70.0); PLATELET COUNT (AUTO) 271 K/uL (150-450); RED BLOOD CELL COUNT(AUTO) 4.82 MIL/uL (4.50-5.90); RED CELL DISTRIBUTION WIDTH 14.3 % (11.5-14.5)
[2019-06-08 00:52] LABS: ANION GAP 18 mmol/L (8-16); CALCIUM, TOTAL 10.1 mg/dL (8.8-10.5); CARBON DIOXIDE 19 mmol/L (22-29); CHLORIDE 100 mmol/L (98-107); CREATININE 1.47 mg/dL (0.60-1.30); GLOMERULAR FILTR. RATE CALC 50 mL/min (>60); GLUCOSE,RANDOM 320 mg/dL (70-110); POTASSIUM 4.3 mmol/L (3.5-5.1); SODIUM SERUM 137 mmol/L (136-145); UREA NITROGEN, BLOOD 16 mg/dL (7-18)
[2019-06-08 00:58] LABS: ALANINE AMINOTRANSFERASE 141 U/L (12-78); ALKALINE PHOSPHATASE 169 U/L (46-116); ASPARTATE AMINOTRANSFERASE 90 U/L (15-37); BILIRUBIN,TOTAL 1.3 mg/dL (0.1-1.0); TOTAL PROTEIN, SERUM 8.8 g/dL (6.4-8.2)
[2019-06-08] MEDS ORDERED: INSULIN REGULAR, HUMAN 100 UNITS/ML SQ ONE ×2 (02:00→05:45)
[2019-06-08 02:12] LABS: LIPASE 162 U/L (73-393)
[2019-06-08 02:13] LABS: ACETAMINOPHEN < 2 mcg/mL (10-30)
[2019-06-08] MEDS ORDERED: HALOPERIDOL 5 MG TABLET PO PRN (02:15)
[2019-06-08] MEDS ORDERED: LORazepam 2 MG TABLET PO PRN (02:15)
[2019-06-08] MEDS ORDERED: ZOLPIDEM TARTRATE 10 MG TABLET PO PRN (02:15)
[2019-06-08 03:53] LABS: GLUCOSE,POINT OF CARE 291 MG/DL (70-110)
[2019-06-08 05:29] LABS: GLUCOSE,POINT OF CARE 296 MG/DL (70-110)
[2019-06-08 07:56] LABS: GLUCOSE,POINT OF CARE 133 MG/DL (70-110)
[2019-06-08] MEDS ORDERED: MAGNESIUM HYDROXIDE SUSPENSION 30 ML UDCUP PO PRN (09:00)
[2019-06-08] MEDS ORDERED: DOCUSATE SODIUM 100 MG CAPSULE PO PRN (09:00)
[2019-06-08] MEDS ORDERED: PETROLATUM,WHITE 28 GM JELLY TP PRN (09:00)
[2019-06-08] MEDS ORDERED: ALBUTEROL SULFATE HFA 90 MCG/PUFF 8 GM INHALER IH PRN (09:00)
[2019-06-08] MEDS ORDERED: GuaiFENesin/D-METHORPHAN [SUGAR-FREE] 200-20MG/10 ML SYRUP UDCUP PO PRN (09:00)
[2019-06-08] MEDS ORDERED: ONDANSETRON HCL 4 MG TABLET PO PRN (09:00)
[2019-06-08] MEDS ORDERED: MAG HYDROX/AL HYDROX/SIMETH ES 30 ML SUSPENSION UDCUP PO PRN (09:00)
[2019-06-08] MEDS ORDERED: LOPERAMIDE HCL 2 MG CAPSULE PO PRN (09:00)
[2019-06-08] MEDS ORDERED: NICOTINE 14 MG/24 HOUR PATCH TD PRN (09:00)
[2019-06-08] MEDS ORDERED: CloNIDine HCL 0.1 MG TABLET PO PRN (09:00)
[2019-06-08 09:24] VITALS: BP 125/90
[2019-06-08] MEDS: AmLODIPine BESYLATE 5 MG TABLET PO SCH (13:07)
[2019-06-08] MEDS: BuPROPion HCL XL 150 MG ER TABLET PO SCH (13:07)
[2019-06-08] MEDS: ARIPiprazole 10 MG TABLET PO SCH (13:08)
[2019-06-08 16:44] VITALS: BP 144/78
[2019-06-08] MEDS: LORazepam 1 MG TABLET PO PRN ×2 (17:05→23:17)
[2019-06-08] MEDS: OLANZapine 10 MG TABLET PO SCH (20:59)
[2019-06-09 03:14] VITALS: BP 132/76
[2019-06-09 08:21] VITALS: BP 116/71
[2019-06-09] MEDS: AmLODIPine BESYLATE 5 MG TABLET PO SCH (09:16)
[2019-06-09] MEDS: BuPROPion HCL XL 150 MG ER TABLET PO SCH (09:17)
[2019-06-09] MEDS: ARIPiprazole 10 MG TABLET PO SCH (09:17)
[2019-06-09] MEDS: LORazepam 1 MG TABLET PO PRN (10:39)
[2019-06-09] MEDS ORDERED: GLUCAGON,HUMAN RECOMBINANT 1 MG VIAL IM PRN (11:15)
[2019-06-09] MEDS ORDERED: INSULIN LISPRO 100 UNITS/ML SQ PRN (11:15)
[2019-06-09 16:23] VITALS: BP 136/84
[2019-06-09 17:24] LABS: GLUCOMETER DEV NAME(LOC) BV3N.; GLUCOSE,POINT OF CARE > 600 MG/DL (70-110)
[2019-06-09 17:24] LABS: GLUCOMETER DEV NAME(LOC) BV3S.; GLUCOSE,POINT OF CARE > 600 MG/DL (70-110)
[2019-06-09 19:55] VITALS: BP 117/78
[2019-06-09] MEDS: OLANZapine 10 MG TABLET PO SCH (21:00)
[2019-06-11] MEDS ORDERED: INSLAN SQ (16:20)
== END 2019-06-10 04:47 | disposition short-term general hospital (02) | DRG 750 ==
LOC: EMS 22:46 → B3A 06-08 02:00
PROVIDERS: ADMIT Psychiatry & Neurology Psychiatry; ATTEND Psychiatry & Neurology Psychiatry
DX: F25.1 Schizoaffective disorder, depressive type (principal); N17.9 Acute kidney failure, unspecified; E11.9 Type 2 diabetes mellitus without complications; R45.851 Suicidal ideations; Z59.0 Homelessness; F17.210 Nicotine dependence, cigarettes, uncomplicated; I10 Essential (primary) hypertension; B19.20 Unspecified viral hepatitis C without hepatic coma; F32.9 Major depressive disorder, single episode, unspecified; F19.10 Other psychoactive substance abuse, uncomplicated; F41.9 Anxiety disorder, unspecified; K21.9 Gastro-esophageal reflux disease without esophagitis; J45.909 Unspecified asthma, uncomplicated; Z62.810 Personal history of physical and sexual abuse in childhood; Z79.4 Long term (current) use of insulin; Z79.899 Other long term (current) drug therapy; Z86.59 Personal history of other mental and behavioral disorders; Z91.14 Patient's other noncompliance with medication regimen; Z91.5 Personal history of self-harm; Z88.8 Allergy status to other drugs, medicaments and biological substances; Z91.018 Allergy to other foods; Z90.49 Acquired absence of other specified parts of digestive tract
CPT/HCPCS: 76700; G0480; G0481; J1815

== ENCOUNTER 2019-06-11 14:06 | Inpatient (IN) | payer MEDICAID ==
[~2019-06-11] VITALS: Ht 182.9 cm; Wt 105.4 kg
[2019-06-11] MEDS ORDERED: ZOLPIDEM TARTRATE 10 MG TABLET PO PRN (15:30)
[2019-06-11] MEDS ORDERED: INSLAN SQ (16:20)
[2019-06-11] MEDS ORDERED: DEXTROSE 50%-WATER 25 GM/50 ML SYRINGE IVP PRN (16:30)
[2019-06-11] MEDS ORDERED: CloNIDine HCL 0.1 MG TABLET PO PRN (16:30)
[2019-06-11] MEDS ORDERED: ONDANSETRON HCL 4 MG TABLET PO PRN (16:30)
[2019-06-11] MEDS ORDERED: MAG HYDROX/AL HYDROX/SIMETH ES 30 ML SUSPENSION UDCUP PO PRN (16:30)
[2019-06-11] MEDS ORDERED: PETROLATUM,WHITE 28 GM JELLY TP PRN (16:30)
[2019-06-11] MEDS ORDERED: GuaiFENesin/D-METHORPHAN [SUGAR-FREE] 200-20MG/10 ML SYRUP UDCUP PO PRN (16:30)
[2019-06-11] MEDS ORDERED: ALBUTEROL SULFATE HFA 90 MCG/PUFF 8 GM INHALER IH PRN (16:30)
[2019-06-11] MEDS ORDERED: NICOTINE 14 MG/24 HOUR PATCH TD PRN (16:30)
[2019-06-11] MEDS ORDERED: MAGNESIUM HYDROXIDE SUSPENSION 30 ML UDCUP PO PRN (16:30)
[2019-06-11] MEDS ORDERED: LOPERAMIDE HCL 2 MG CAPSULE PO PRN (16:30)
[2019-06-11] MEDS ORDERED: DOCUSATE SODIUM 100 MG CAPSULE PO PRN (16:30)
[2019-06-11 16:59] VITALS: BP 131/84
[2019-06-11] MEDS: INSULIN GLARGINE,HUM.REC.ANLOG 100 UNITS/ML SQ SCH (17:00)
[2019-06-11 17:23] LABS: GLUCOMETER DEV NAME(LOC) 3E.C; GLUCOSE,POINT OF CARE 82 MG/DL (70-110)
[2019-06-11 20:28] LABS: GLUCOMETER DEV NAME(LOC) 3E.C; GLUCOSE,POINT OF CARE 334 MG/DL (70-110)
[2019-06-11] MEDS: INSULIN LISPRO 100 UNITS/ML SQ PRN (20:31)
[2019-06-11] MEDS: OLANZapine 10 MG TABLET PO SCH (20:32)
[2019-06-12 06:53] LABS: GLUCOMETER DEV NAME(LOC) 3E.C; GLUCOSE,POINT OF CARE 240 MG/DL (70-110)
[2019-06-12] MEDS: INSULIN LISPRO 100 UNITS/ML SQ PRN ×4 (07:08→21:33)
[2019-06-12] MEDS ORDERED: PNEUMOCOCCAL VACCINE POLYVALENT 0.5 ML VIAL [PPSV23] IM ONE (07:45)
[2019-06-12] MEDS: ARIPiprazole 10 MG TABLET PO SCH (07:55)
[2019-06-12] MEDS: BuPROPion HCL XL 150 MG ER TABLET PO SCH (07:55)
[2019-06-12 08:00] VITALS: BP 113/72
[2019-06-12 08:09] LABS: EOSINOPHILS % (AUTO) 3.3 % (1.0-6.0); HEMATOCRIT 46.2 % (41-53); HEMOGLOBIN 15.2 g/dL (13.5-17.5); LYMPHOCYTES # (AUTO) 1.9 K/uL (1.0-4.8); LYMPHOCYTES % (AUTO) 45.5 % (22.0-44.0); MEAN CORPUSCULAR HEMOGLOBIN 30.3 pg (26.0-34.0); MEAN CORPUSCULAR HGB CONC 32.8 G/dL (31.0-37.0); MEAN CORPUSCULAR VOLUME 92 fL (80-100); MONOCYTES # (AUTO) 0.3 K/uL (0.1-1.0); MONOCYTES % (AUTO) 7.6 % (2.0-9.0); NEUTROPHILS # (AUTO) 1.8 K/uL (1.8-7.7); NEUTROPHILS % (AUTO) 42.6 % (40.0-70.0); PLATELET COUNT (AUTO) 238 K/uL (150-450); RED BLOOD CELL COUNT(AUTO) 5.01 MIL/uL (4.50-5.90); RED CELL DISTRIBUTION WIDTH 14.2 % (11.5-14.5)
[2019-06-12] MEDS: INSULIN GLARGINE,HUM.REC.ANLOG 100 UNITS/ML SQ SCH ×2 (08:12→17:24)
[2019-06-12 08:29] LABS: ALBUMIN 3.3 g/dL (3.4-5.0); BILIRUBIN,TOTAL 0.7 mg/dL (0.1-1.0); CALCIUM, TOTAL 9.6 mg/dL (8.8-10.5); CHOL/HDL RATIO 2.6 (4.2-7.3); CREATININE 1.29 mg/dL (0.60-1.30); POTASSIUM 4.3 mmol/L (3.5-5.1); THYROID STIMULATING HORMONE 2.22 uIU/mL (0.36-3.74); TOTAL PROTEIN, SERUM 6.9 g/dL (6.4-8.2)
[2019-06-12 11:07] LABS: GLUCOMETER DEV NAME(LOC) 3E.C; GLUCOSE,POINT OF CARE 290 MG/DL (70-110)
[2019-06-12] MEDS ORDERED: DOCUSATE SODIUM 100 MG CAPSULE PO PRN (16:15)
[2019-06-12] MEDS ORDERED: NICOTINE 14 MG/24 HOUR PATCH TD PRN (16:15)
[2019-06-12] MEDS ORDERED: LOPERAMIDE HCL 2 MG CAPSULE PO PRN (16:15)
[2019-06-12] MEDS ORDERED: GuaiFENesin/D-METHORPHAN [SUGAR-FREE] 200-20MG/10 ML SYRUP UDCUP PO PRN (16:15)
[2019-06-12] MEDS ORDERED: PETROLATUM,WHITE 28 GM JELLY TP PRN (16:15)
[2019-06-12] MEDS ORDERED: MAG HYDROX/AL HYDROX/SIMETH ES 30 ML SUSPENSION UDCUP PO PRN (16:15)
[2019-06-12] MEDS ORDERED: ONDANSETRON HCL 4 MG TABLET PO PRN (16:15)
[2019-06-12] MEDS ORDERED: ALBUTEROL SULFATE HFA 90 MCG/PUFF 8 GM INHALER IH PRN (16:15)
[2019-06-12] MEDS ORDERED: MAGNESIUM HYDROXIDE SUSPENSION 30 ML UDCUP PO PRN (16:15)
[2019-06-12] MEDS ORDERED: CloNIDine HCL 0.1 MG TABLET PO PRN (16:15)
[2019-06-12 17:11] LABS: GLUCOMETER DEV NAME(LOC) 3E.C; GLUCOSE,POINT OF CARE 392 MG/DL (70-110)
[2019-06-12 18:22] VITALS: BP 123/78
[2019-06-12] MEDS: OLANZapine 10 MG TABLET PO SCH (21:17)
[2019-06-12 21:30] LABS: GLUCOMETER DEV NAME(LOC) 3E.C; GLUCOSE,POINT OF CARE 311 MG/DL (70-110)
[2019-06-13 06:49] LABS: GLUCOMETER DEV NAME(LOC) 3E.C; GLUCOSE,POINT OF CARE 162 MG/DL (70-110)
[2019-06-13] MEDS: INSULIN LISPRO 100 UNITS/ML SQ PRN ×4 (07:00→20:47)
[2019-06-13 08:40] VITALS: BP 131/64
[2019-06-13] MEDS: ARIPiprazole 10 MG TABLET PO SCH (08:51)
[2019-06-13] MEDS: BuPROPion HCL XL 150 MG ER TABLET PO SCH (08:51)
[2019-06-13] MEDS: INSULIN GLARGINE,HUM.REC.ANLOG 100 UNITS/ML SQ SCH ×2 (09:01→16:51)
[2019-06-13 11:50] LABS: GLUCOMETER DEV NAME(LOC) 3E.C; GLUCOSE,POINT OF CARE 332 MG/DL (70-110)
[2019-06-13] MEDS: MUPIROCIN CALCIUM 2% 22 GM OINTMENT NASAL SCH (16:45)
[2019-06-13 16:50] VITALS: BP 131/76
[2019-06-13 16:55] LABS: GLUCOMETER DEV NAME(LOC) 3E.C; GLUCOSE,POINT OF CARE 283 MG/DL (70-110)
[2019-06-13] MEDS: OLANZapine 10 MG TABLET PO SCH (20:13)
[2019-06-13 20:23] LABS: GLUCOMETER DEV NAME(LOC) 3E.C; GLUCOSE,POINT OF CARE 368 MG/DL (70-110)
[2019-06-14 06:34] LABS: GLUCOMETER DEV NAME(LOC) 3E.C; GLUCOSE,POINT OF CARE 222 MG/DL (70-110)
[2019-06-14] MEDS: INSULIN LISPRO 100 UNITS/ML SQ PRN ×4 (06:56→20:40)
[2019-06-14 07:04] LABS: BASOPHILS % (AUTO) 1.3 % (0.0-2.0); HEMATOCRIT 44.4 % (41-53); HEMOGLOBIN 14.9 g/dL (13.5-17.5); LYMPHOCYTES # (AUTO) 2.5 K/uL (1.0-4.8); LYMPHOCYTES % (AUTO) 49.8 % (22.0-44.0); MEAN CORPUSCULAR HEMOGLOBIN 30.9 pg (26.0-34.0); MEAN CORPUSCULAR HGB CONC 33.6 G/dL (31.0-37.0); MEAN CORPUSCULAR VOLUME 92 fL (80-100); MONOCYTES # (AUTO) 0.3 K/uL (0.1-1.0); NEUTROPHILS % (AUTO) 38.9 % (40.0-70.0); PLATELET COUNT (AUTO) 237 K/uL (150-450); RED BLOOD CELL COUNT(AUTO) 4.82 MIL/uL (4.50-5.90); RED CELL DISTRIBUTION WIDTH 14.3 % (11.5-14.5)
[2019-06-14] MEDS: ARIPiprazole 10 MG TABLET PO SCH (07:24)
[2019-06-14] MEDS: BuPROPion HCL XL 150 MG ER TABLET PO SCH (07:24)
[2019-06-14] MEDS: MUPIROCIN CALCIUM 2% 22 GM OINTMENT NASAL SCH ×2 (07:25→16:04)
[2019-06-14 07:35] LABS: ALANINE AMINOTRANSFERASE 295 U/L (12-78); ALBUMIN 3.3 g/dL (3.4-5.0); ALKALINE PHOSPHATASE 168 U/L (46-116); ANION GAP 10 mmol/L (8-16); ASPARTATE AMINOTRANSFERASE 252 U/L (15-37); BILIRUBIN,TOTAL 0.7 mg/dL (0.1-1.0); CALCIUM, TOTAL 9.2 mg/dL (8.8-10.5); CARBON DIOXIDE 24 mmol/L (22-29); CHLORIDE 105 mmol/L (98-107); CHOL/HDL RATIO 2.7 (4.2-7.3); CHOLESTEROL 117 mg/dL (131-200); GLOMERULAR FILTR. RATE CALC > 60 mL/min (>60); GLUCOSE,RANDOM 258 mg/dL (70-110); HDL CHOLESTEROL 44 mg/dL (40-60); LDL CHOL (CALC.) 56 mg/dL (0-130); POTASSIUM 4.3 mmol/L (3.5-5.1); SODIUM SERUM 139 mmol/L (136-145); THYROID STIMULATING HORMONE 4.45 uIU/mL (0.36-3.74); TOTAL PROTEIN, SERUM 7.2 g/dL (6.4-8.2); TRIGLYCERIDES 86 mg/dL (15-150); UREA NITROGEN, BLOOD 17 mg/dL (7-18)
[2019-06-14] MEDS: INSULIN GLARGINE,HUM.REC.ANLOG 100 UNITS/ML SQ SCH ×2 (08:01→17:00)
[2019-06-14 09:48] VITALS: BP 130/79
[2019-06-14 16:14] LABS: GLUCOMETER DEV NAME(LOC) 3E.C; GLUCOSE,POINT OF CARE 289 MG/DL (70-110)
[2019-06-14 18:21] VITALS: BP 111/82
[2019-06-14] MEDS: OLANZapine 10 MG TABLET PO SCH (20:38)
[2019-06-14 22:07] LABS: GLUCOMETER DEV NAME(LOC) 3E.C; GLUCOSE,POINT OF CARE 222 MG/DL (70-110)
[2019-06-15] MEDS: INSULIN LISPRO 100 UNITS/ML SQ PRN ×4 (06:49→20:44)
[2019-06-15 06:55] LABS: GLUCOMETER DEV NAME(LOC) 3E.C; GLUCOSE,POINT OF CARE 207 MG/DL (70-110)
[2019-06-15] MEDS: MUPIROCIN CALCIUM 2% 22 GM OINTMENT NASAL SCH ×2 (08:05→17:27)
[2019-06-15] MEDS: BuPROPion HCL XL 150 MG ER TABLET PO SCH (08:05)
[2019-06-15] MEDS: ARIPiprazole 10 MG TABLET PO SCH (08:05)
[2019-06-15] MEDS: INSULIN GLARGINE,HUM.REC.ANLOG 100 UNITS/ML SQ SCH ×2 (08:10→17:25)
[2019-06-15] MEDS: LORazepam 2 MG TABLET PO PRN (09:20)
[2019-06-15 11:24] LABS: GLUCOMETER DEV NAME(LOC) 3E.C; GLUCOSE,POINT OF CARE 225 MG/DL (70-110)
[2019-06-15 11:45] VITALS: BP 116/78
[2019-06-15 12:12] LABS: GLUCOMETER DEV NAME(LOC) 3E.C; GLUCOSE,POINT OF CARE 257 MG/DL (70-110)
[2019-06-15 16:31] VITALS: BP 101/73
[2019-06-15 17:31] LABS: GLUCOMETER DEV NAME(LOC) 3E.C; GLUCOSE,POINT OF CARE 314 MG/DL (70-110)
[2019-06-15] MEDS: OLANZapine 10 MG TABLET PO SCH (20:17)
[2019-06-15 22:01] LABS: GLUCOMETER DEV NAME(LOC) 3E.C; GLUCOSE,POINT OF CARE 167 MG/DL (70-110)
[2019-06-16 06:55] LABS: GLUCOMETER DEV NAME(LOC) 3E.C; GLUCOSE,POINT OF CARE 143 MG/DL (70-110)
[2019-06-16] MEDS: INSULIN LISPRO 100 UNITS/ML SQ PRN ×4 (07:10→22:12)
[2019-06-16] MEDS: LORazepam 2 MG TABLET PO PRN ×2 (07:43→16:22)
[2019-06-16] MEDS: HALOPERIDOL 5 MG TABLET PO PRN (07:43)
[2019-06-16] MEDS: ARIPiprazole 10 MG TABLET PO SCH (07:44)
[2019-06-16] MEDS: MUPIROCIN CALCIUM 2% 22 GM OINTMENT NASAL SCH ×2 (07:46→16:26)
[2019-06-16] MEDS: BuPROPion HCL XL 150 MG ER TABLET PO SCH (07:46)
[2019-06-16] MEDS: INSULIN GLARGINE,HUM.REC.ANLOG 100 UNITS/ML SQ SCH ×2 (07:54→17:30)
[2019-06-16 08:00] VITALS: BP 127/81
[2019-06-16 16:17] VITALS: BP 117/73
[2019-06-16] MEDS: OLANZapine 10 MG TABLET PO SCH (21:06)
[2019-06-16 21:24] LABS: GLUCOMETER DEV NAME(LOC) 3E.C; GLUCOSE,POINT OF CARE 171 MG/DL (70-110)
[2019-06-17 06:42] LABS: GLUCOMETER DEV NAME(LOC) 3E.C; GLUCOSE,POINT OF CARE 123 MG/DL (70-110)
[2019-06-17] MEDS: INSULIN LISPRO 100 UNITS/ML SQ PRN ×6 (06:46→17:04)
[2019-06-17] MEDS: MUPIROCIN CALCIUM 2% 22 GM OINTMENT NASAL SCH ×2 (07:42→17:05)
[2019-06-17] MEDS: BuPROPion HCL XL 150 MG ER TABLET PO SCH (07:42)
[2019-06-17] MEDS: ARIPiprazole 10 MG TABLET PO SCH (07:42)
[2019-06-17] MEDS: INSULIN GLARGINE,HUM.REC.ANLOG 100 UNITS/ML SQ SCH ×2 (07:47→17:03)
[2019-06-17 09:42] VITALS: BP 126/76
[2019-06-17] MEDS: HALOPERIDOL 5 MG TABLET PO PRN (10:06)
[2019-06-17] MEDS: LORazepam 2 MG TABLET PO PRN (10:06)
[2019-06-17 11:42] LABS: GLUCOMETER DEV NAME(LOC) 3E.C; GLUCOSE,POINT OF CARE 418 MG/DL (70-110)
[2019-06-17] MEDS ORDERED: INSULIN REGULAR, HUMAN 100 UNITS/ML SQ ONE (12:00)
[2019-06-17] MEDS ORDERED: ARIP10TA8 PO (14:49)
[2019-06-17] MEDS ORDERED: BUPR-93 PO (14:51)
[2019-06-17] MEDS ORDERED: OLAN10TA3 PO (14:51)
[2019-06-17] MEDS ORDERED: MUPI1OIN5 TP (14:53)
[2019-06-17 16:04] LABS: GLUCOMETER DEV NAME(LOC) 3E.C; GLUCOSE,POINT OF CARE 372 MG/DL (70-110)
[2019-06-17 16:04] LABS: GLUCOMETER DEV NAME(LOC) 3E.C; GLUCOSE,POINT OF CARE 310 MG/DL (70-110)
[2019-06-17 17:08] LABS: GLUCOMETER DEV NAME(LOC) 3E.C; GLUCOSE,POINT OF CARE 240 MG/DL (70-110)
== END 2019-06-17 17:15 | disposition home or self-care (01) | DRG 885 ==
LOC: 3EC 16:19
PROVIDERS: ADMIT Psychiatry & Neurology Psychiatry; ATTEND Psychiatry & Neurology Psychiatry
DX: F25.1 Schizoaffective disorder, depressive type (principal); N17.9 Acute kidney failure, unspecified; B19.20 Unspecified viral hepatitis C without hepatic coma; E11.65 Type 2 diabetes mellitus with hyperglycemia; F11.20 Opioid dependence, uncomplicated; R45.851 Suicidal ideations; F15.20 Other stimulant dependence, uncomplicated; Z59.0 Homelessness; R53.83 Other fatigue; Z91.5 Personal history of self-harm; J45.909 Unspecified asthma, uncomplicated; I10 Essential (primary) hypertension; Z62.810 Personal history of physical and sexual abuse in childhood; F31.9 Bipolar disorder, unspecified; Z88.8 Allergy status to other drugs, medicaments and biological substances; Z90.49 Acquired absence of other specified parts of digestive tract; F19.10 Other psychoactive substance abuse, uncomplicated; F17.200 Nicotine dependence, unspecified, uncomplicated; R74.0 Nonspecific elevation of levels of transaminase and lactic acid dehydrogenase [LDH]; Z28.21 Immunization not carried out because of patient refusal
CPT/HCPCS: 83036; 84439; 84443; 87081; J1815

== ENCOUNTER 2019-06-20 18:11 | Inpatient (IN) | payer MEDICAID ==
[~2019-06-20] VITALS: Ht 182.9 cm; Wt 104.8 kg
[~2019-06-20 18:11] MED LIST changes: -AMLO5TAB9 PO; -BUPR-47 PO; +BUPR-93 PO; +INSLAN SQ; +MUPI1OIN5 TP; -OLAN10TA20 PO; +OLAN10TA3 PO
[2019-06-20] MEDS ORDERED: ESCI10TA PO (18:30)
[2019-06-20 19:33] LABS: GLUCOSE,POINT OF CARE 269 MG/DL (70-110)
[2019-06-20 19:58] LABS: HEMATOCRIT 39.1 % (41-53); HEMOGLOBIN 12.8 g/dL (13.5-17.5); MEAN CORPUSCULAR HEMOGLOBIN 30.3 pg (26.0-34.0); MEAN CORPUSCULAR HGB CONC 32.7 G/dL (31.0-37.0); MEAN CORPUSCULAR VOLUME 93 fL (80-100); PLATELET COUNT (AUTO) 151 K/uL (150-450); RED BLOOD CELL COUNT(AUTO) 4.22 MIL/uL (4.50-5.90); RED CELL DISTRIBUTION WIDTH 14.3 % (11.5-14.5)
[2019-06-20 20:06] LABS: ANION GAP 13 mmol/L (8-16); CALCIUM, TOTAL 9.4 mg/dL (8.8-10.5); CARBON DIOXIDE 23 mmol/L (22-29); CHLORIDE 105 mmol/L (98-107); CREATININE 2.17 mg/dL (0.60-1.30); GLOMERULAR FILTR. RATE CALC 32 mL/min (>60); GLUCOSE,RANDOM 278 mg/dL (70-110); POTASSIUM 3.9 mmol/L (3.5-5.1); SODIUM SERUM 141 mmol/L (136-145); UREA NITROGEN, BLOOD 20 mg/dL (7-18)
[2019-06-20 20:07] LABS: AMPHET/METH SCREEN,URINE POSITIVE (NEGATIVE); BARBITURATE SCREEN, URINE NEGATIVE (NEGATIVE); BENZODIAZEPINES SCREEN,URINE NEGATIVE (NEGATIVE); CANNABINOID SCREEN,URINE NEGATIVE (NEGATIVE); COCAINE SCREEN,URINE NEGATIVE (NEGATIVE); METHADONE SCREEN, URINE NEGATIVE (NEGATIVE); OPIATE SCREEN,URINE POSITIVE (NEGATIVE); PHENCYCLIDINE SCREEN,URINE NEGATIVE (NEGATIVE)
[2019-06-20 20:12] LABS: ALANINE AMINOTRANSFERASE 153 U/L (12-78); ALBUMIN 3.2 g/dL (3.4-5.0); ALKALINE PHOSPHATASE 255 U/L (46-116); ASPARTATE AMINOTRANSFERASE 75 U/L (15-37); TOTAL PROTEIN, SERUM 6.7 g/dL (6.4-8.2)
[2019-06-20 20:21] LABS: BAND NEUTROPHILS % (MANUAL) 12 % (0-5); LYMPHOCYTES % (MANUAL) 12 % (22-44); MONOCYTES % (MANUAL) 4 % (2-9); PLATELET MORPHOLOGY COMMENT LARGE PLTS PRESENT; SEGMENTED NEUTROPHILS % 72 % (40-70)
[2019-06-20] MEDS ORDERED: HALOPERIDOL 5 MG TABLET PO PRN (21:30)
[2019-06-20 21:33] LABS: GLUCOSE,POINT OF CARE 302 MG/DL (70-110)
[2019-06-21 02:09] LABS: GLUCOSE,POINT OF CARE 312 MG/DL (70-110)
[2019-06-21 06:08] LABS: CHOL/HDL RATIO 1.6 (4.2-7.3)
[2019-06-21 07:52] LABS: GLUCOSE,POINT OF CARE 298 MG/DL (70-110)
[2019-06-21] MEDS ORDERED: GLUCAGON,HUMAN RECOMBINANT 1 MG VIAL IM PRN (08:30)
[2019-06-21] MEDS: INSULIN GLARGINE,HUM.REC.ANLOG 100 UNITS/ML SQ SCH ×2 (08:46→18:25)
[2019-06-21] MEDS: INSULIN LISPRO 100 UNITS/ML SQ PRN ×4 (08:47→21:14)
[2019-06-21 12:35] VITALS: BP 101/76
[2019-06-21] MEDS ORDERED: PNEUMOCOCCAL VACCINE POLYVALENT 0.5 ML VIAL [PPSV23] IM ONE (12:45)
[2019-06-21 13:04] LABS: GLUCOMETER DEV NAME(LOC) BV2S.; GLUCOSE,POINT OF CARE 323 MG/DL (70-110)
[2019-06-21] MEDS ORDERED: MAGNESIUM HYDROXIDE SUSPENSION 30 ML UDCUP PO PRN (14:15)
[2019-06-21] MEDS ORDERED: MAG HYDROX/AL HYDROX/SIMETH ES 30 ML SUSPENSION UDCUP PO PRN (14:15)
[2019-06-21] MEDS ORDERED: ALBUTEROL SULFATE HFA 90 MCG/PUFF 8 GM INHALER IH PRN (14:15)
[2019-06-21] MEDS ORDERED: DOCUSATE SODIUM 100 MG CAPSULE PO PRN (14:15)
[2019-06-21] MEDS ORDERED: CloNIDine HCL 0.1 MG TABLET PO PRN (14:15)
[2019-06-21] MEDS ORDERED: GuaiFENesin/D-METHORPHAN [SUGAR-FREE] 200-20MG/10 ML SYRUP UDCUP PO PRN (14:15)
[2019-06-21] MEDS ORDERED: PETROLATUM,WHITE 28 GM JELLY TP PRN (14:15)
[2019-06-21] MEDS ORDERED: LOPERAMIDE HCL 2 MG CAPSULE PO PRN (14:15)
[2019-06-21] MEDS ORDERED: ONDANSETRON HCL 4 MG TABLET PO PRN (14:15)
[2019-06-21] MEDS ORDERED: NICOTINE 14 MG/24 HOUR PATCH TD PRN (14:15)
[2019-06-21 17:52] VITALS: BP 107/66
[2019-06-21] MEDS: LORazepam 2 MG TABLET PO PRN (18:14)
[2019-06-21 18:32] LABS: GLUCOMETER DEV NAME(LOC) BV2S.; GLUCOSE,POINT OF CARE 337 MG/DL (70-110)
[2019-06-21 20:16] LABS: GLUCOMETER DEV NAME(LOC) BV2S.; GLUCOSE,POINT OF CARE 187 MG/DL (70-110)
[2019-06-22 05:23] VITALS: BP_SYST 110; BP_SYST 112; BP_DIAS 64; BP_DIAS 70
[2019-06-22 06:18] LABS: GLUCOMETER DEV NAME(LOC) BV2S.; GLUCOSE,POINT OF CARE 236 MG/DL (70-110)
[2019-06-22] MEDS: INSULIN LISPRO 100 UNITS/ML SQ PRN ×3 (06:31→20:50)
[2019-06-22 08:32] VITALS: BP 100/63
[2019-06-22] MEDS: INSULIN GLARGINE,HUM.REC.ANLOG 100 UNITS/ML SQ SCH ×2 (08:37→17:25)
[2019-06-22 11:21] LABS: GLUCOMETER DEV NAME(LOC) BV2S.; GLUCOSE,POINT OF CARE 360 MG/DL (70-110)
[2019-06-22] MEDS: ESCITALOPRAM OXALATE 10 MG TABLET PO SCH (13:03)
[2019-06-22] MEDS: ARIPiprazole 10 MG TABLET PO SCH (13:04)
[2019-06-22] MEDS: BuPROPion HCL XL 150 MG ER TABLET PO SCH (13:04)
[2019-06-22 16:32] VITALS: BP 78/19
[2019-06-22] MEDS ORDERED: INSULIN LISPRO 100 UNITS/ML SQ ONE (17:15)
[2019-06-22 18:00] LABS: GLUCOMETER DEV NAME(LOC) BV2S.; GLUCOSE,POINT OF CARE 422 MG/DL (70-110)
[2019-06-22] MEDS: OLANZapine 10 MG TABLET PO SCH (20:41)
[2019-06-22 20:42] LABS: GLUCOMETER DEV NAME(LOC) BV2S.; GLUCOSE,POINT OF CARE 198 MG/DL (70-110)
[2019-06-22] MEDS ORDERED: INSULIN GLARGINE,HUM.REC.ANLOG 100 UNITS/ML SQ SCH (21:00)
[2019-06-23 05:20] VITALS: BP 110/68
[2019-06-23 06:56] LABS: GLUCOMETER DEV NAME(LOC) BV2S.; GLUCOSE,POINT OF CARE 167 MG/DL (70-110)
[2019-06-23] MEDS: ESCITALOPRAM OXALATE 10 MG TABLET PO SCH (08:03)
[2019-06-23] MEDS: BuPROPion HCL XL 150 MG ER TABLET PO SCH (08:03)
[2019-06-23] MEDS: ARIPiprazole 10 MG TABLET PO SCH (08:03)
[2019-06-23] MEDS: INSULIN GLARGINE,HUM.REC.ANLOG 100 UNITS/ML SQ SCH ×2 (08:07→17:15)
[2019-06-23] MEDS: LORazepam 2 MG TABLET PO PRN (08:12)
[2019-06-23 08:31] VITALS: BP 101/65
[2019-06-23 11:23] LABS: GLUCOMETER DEV NAME(LOC) BV2S.; GLUCOSE,POINT OF CARE 416 MG/DL (70-110)
[2019-06-23] MEDS ORDERED: INSULIN LISPRO 100 UNITS/ML SQ ONE (12:00)
[2019-06-23 13:52] LABS: GLUCOMETER DEV NAME(LOC) BV2S.; GLUCOSE,POINT OF CARE 278 MG/DL (70-110)
[2019-06-23 16:05] VITALS: BP 121/73
[2019-06-23 19:48] LABS: GLUCOMETER DEV NAME(LOC) BV2S.; GLUCOSE,POINT OF CARE 121 MG/DL (70-110)
[2019-06-23] MEDS: ZOLPIDEM TARTRATE 10 MG TABLET PO PRN (20:07)
[2019-06-23] MEDS: OLANZapine 10 MG TABLET PO SCH (20:07)
[2019-06-23 20:44] LABS: GLUCOMETER DEV NAME(LOC) BV2S.; GLUCOSE,POINT OF CARE 348 MG/DL (70-110)
[2019-06-23] MEDS: INSULIN LISPRO 100 UNITS/ML SQ PRN (20:58)
[2019-06-24 05:52] VITALS: BP 113/68
[2019-06-24 06:24] LABS: GLUCOMETER DEV NAME(LOC) BV2S.; GLUCOSE,POINT OF CARE 206 MG/DL (70-110)
[2019-06-24] MEDS: INSULIN LISPRO 100 UNITS/ML SQ PRN ×3 (06:39→20:38)
[2019-06-24] MEDS: ESCITALOPRAM OXALATE 10 MG TABLET PO SCH (08:08)
[2019-06-24] MEDS: BuPROPion HCL XL 150 MG ER TABLET PO SCH (08:08)
[2019-06-24] MEDS: ARIPiprazole 10 MG TABLET PO SCH (08:08)
[2019-06-24] MEDS: INSULIN GLARGINE,HUM.REC.ANLOG 100 UNITS/ML SQ SCH ×2 (08:13→16:53)
[2019-06-24 08:43] VITALS: BP 124/78
[2019-06-24 09:03] LABS: ANION GAP 10 mmol/L (8-16); CALCIUM, TOTAL 9.2 mg/dL (8.8-10.5); CARBON DIOXIDE 23 mmol/L (22-29); CHLORIDE 106 mmol/L (98-107); CREATININE 1.22 mg/dL (0.60-1.30); GLOMERULAR FILTR. RATE CALC > 60 mL/min (>60); GLUCOSE,RANDOM 164 mg/dL (70-110); POTASSIUM 4.1 mmol/L (3.5-5.1); SODIUM SERUM 139 mmol/L (136-145); UREA NITROGEN, BLOOD 13 mg/dL (7-18)
[2019-06-24 11:49] LABS: GLUCOMETER DEV NAME(LOC) BV2S.; GLUCOSE,POINT OF CARE 201 MG/DL (70-110)
[2019-06-24] MEDS: LORazepam 2 MG TABLET PO PRN (14:27)
[2019-06-24 16:24] VITALS: BP 102/66
[2019-06-24] MEDS ORDERED: INSULIN LISPRO 100 UNITS/ML SQ ONE (16:45)
[2019-06-24] MEDS ORDERED: METOPROLOL TARTRATE 25 MG TABLET PO SCH (16:45)
[2019-06-24] MEDS ORDERED: LISINOPRIL 10 MG TABLET PO SCH (16:45)
[2019-06-24] MEDS ORDERED: GLUCAGON,HUMAN RECOMBINANT 1 MG VIAL IM PRN (17:15)
[2019-06-24 17:55] LABS: GLUCOMETER DEV NAME(LOC) BV2S.; GLUCOSE,POINT OF CARE 426 MG/DL (70-110)
[2019-06-24 18:14] LABS: GLUCOMETER DEV NAME(LOC) BV2S.; GLUCOSE,POINT OF CARE 297 MG/DL (70-110)
[2019-06-24] MEDS: OLANZapine 10 MG TABLET PO SCH (20:29)
[2019-06-24 20:58] LABS: GLUCOMETER DEV NAME(LOC) BV2S.; GLUCOSE,POINT OF CARE 281 MG/DL (70-110)
[2019-06-25 00:25] VITALS: BP 101/79
[2019-06-25 06:22] LABS: GLUCOMETER DEV NAME(LOC) BV2S.; GLUCOSE,POINT OF CARE 265 MG/DL (70-110)
[2019-06-25] MEDS: MetFORMIN HCL 500 MG TABLET PO SCH ×2 (06:57→16:42)
[2019-06-25] MEDS: INSULIN LISPRO 100 UNITS/ML SQ PRN ×4 (07:01→20:38)
[2019-06-25 08:04] VITALS: BP 107/73
[2019-06-25] MEDS: ARIPiprazole 10 MG TABLET PO SCH (08:18)
[2019-06-25] MEDS: BuPROPion HCL XL 150 MG ER TABLET PO SCH (08:18)
[2019-06-25] MEDS: ESCITALOPRAM OXALATE 10 MG TABLET PO SCH (08:18)
[2019-06-25] MEDS: INSULIN GLARGINE,HUM.REC.ANLOG 100 UNITS/ML SQ SCH ×2 (08:22→16:44)
[2019-06-25 08:53] LABS: FREE T4 (FREE THYROXINE) 1.46 ng/dL (0.76-1.46); THYROID STIMULATING HORMONE 3.8 uIU/mL (0.36-3.74)
[2019-06-25 12:00] LABS: GLUCOMETER DEV NAME(LOC) BV2S.; GLUCOSE,POINT OF CARE 370 MG/DL (70-110)
[2019-06-25 16:08] VITALS: BP 105/76
[2019-06-25 16:48] LABS: GLUCOMETER DEV NAME(LOC) BV2S.; GLUCOSE,POINT OF CARE 314 MG/DL (70-110)
[2019-06-25] MEDS: OLANZapine 10 MG TABLET PO SCH (20:26)
[2019-06-25 21:14] LABS: GLUCOMETER DEV NAME(LOC) BV2S.; GLUCOSE,POINT OF CARE 153 MG/DL (70-110)
[2019-06-26 06:38] LABS: GLUCOMETER DEV NAME(LOC) BV2S.; GLUCOSE,POINT OF CARE 154 MG/DL (70-110)
[2019-06-26] MEDS: MetFORMIN HCL 500 MG TABLET PO SCH ×2 (06:50→16:38)
[2019-06-26] MEDS: INSULIN LISPRO 100 UNITS/ML SQ PRN ×4 (06:53→20:35)
[2019-06-26] MEDS: LORazepam 2 MG TABLET PO PRN ×2 (06:57→14:44)
[2019-06-26] MEDS: ESCITALOPRAM OXALATE 10 MG TABLET PO SCH (08:16)
[2019-06-26] MEDS: BuPROPion HCL XL 150 MG ER TABLET PO SCH (08:16)
[2019-06-26] MEDS: ARIPiprazole 10 MG TABLET PO SCH (08:16)
[2019-06-26] MEDS: INSULIN GLARGINE,HUM.REC.ANLOG 100 UNITS/ML SQ SCH ×2 (08:25→16:37)
[2019-06-26 08:36] VITALS: BP 129/87
[2019-06-26 11:11] LABS: GLUCOMETER DEV NAME(LOC) BV2S.; GLUCOSE,POINT OF CARE 193 MG/DL (70-110)
[2019-06-26 16:42] VITALS: BP 106/79
[2019-06-26 16:59] LABS: GLUCOMETER DEV NAME(LOC) BV2S.; GLUCOSE,POINT OF CARE 333 MG/DL (70-110)
[2019-06-26] MEDS: OLANZapine 10 MG TABLET PO SCH (20:04)
[2019-06-26 21:09] LABS: GLUCOMETER DEV NAME(LOC) BV2S.; GLUCOSE,POINT OF CARE 171 MG/DL (70-110)
[2019-06-27 03:31] VITALS: BP 138/86
[2019-06-27 06:09] LABS: GLUCOMETER DEV NAME(LOC) BV2S.; GLUCOSE,POINT OF CARE 157 MG/DL (70-110)
[2019-06-27] MEDS: MetFORMIN HCL 500 MG TABLET PO SCH ×2 (06:44→16:49)
[2019-06-27] MEDS: INSULIN LISPRO 100 UNITS/ML SQ PRN ×4 (06:45→20:41)
[2019-06-27] MEDS: ESCITALOPRAM OXALATE 10 MG TABLET PO SCH (08:11)
[2019-06-27] MEDS: ARIPiprazole 10 MG TABLET PO SCH (08:11)
[2019-06-27] MEDS: BuPROPion HCL XL 150 MG ER TABLET PO SCH (08:11)
[2019-06-27 08:13] VITALS: BP 123/69
[2019-06-27] MEDS: INSULIN GLARGINE,HUM.REC.ANLOG 100 UNITS/ML SQ SCH ×2 (08:13→16:52)
[2019-06-27 11:50] LABS: GLUCOMETER DEV NAME(LOC) BV2S.; GLUCOSE,POINT OF CARE 300 MG/DL (70-110)
[2019-06-27] MEDS: LORazepam 2 MG TABLET PO PRN (14:39)
[2019-06-27 16:03] VITALS: BP 133/86
[2019-06-27 17:18] LABS: GLUCOMETER DEV NAME(LOC) BV2S.; GLUCOSE,POINT OF CARE 253 MG/DL (70-110)
[2019-06-27] MEDS: OLANZapine 10 MG TABLET PO SCH (20:35)
[2019-06-27 21:03] LABS: GLUCOMETER DEV NAME(LOC) BV2S.; GLUCOSE,POINT OF CARE 146 MG/DL (70-110)
[2019-06-28 06:32] LABS: GLUCOMETER DEV NAME(LOC) BV2S.; GLUCOSE,POINT OF CARE 162 MG/DL (70-110)
[2019-06-28] MEDS: INSULIN LISPRO 100 UNITS/ML SQ PRN ×4 (06:42→20:15)
[2019-06-28] MEDS: MetFORMIN HCL 500 MG TABLET PO SCH ×2 (06:48→16:49)
[2019-06-28 08:05] VITALS: BP 124/76
[2019-06-28] MEDS: ARIPiprazole 10 MG TABLET PO SCH (08:09)
[2019-06-28] MEDS: ESCITALOPRAM OXALATE 10 MG TABLET PO SCH (08:09)
[2019-06-28] MEDS: BuPROPion HCL XL 150 MG ER TABLET PO SCH (08:09)
[2019-06-28] MEDS: INSULIN GLARGINE,HUM.REC.ANLOG 100 UNITS/ML SQ SCH ×2 (08:11→16:26)
[2019-06-28] MEDS: LORazepam 2 MG TABLET PO PRN (10:23)
[2019-06-28 11:11] LABS: GLUCOMETER DEV NAME(LOC) BV2S.; GLUCOSE,POINT OF CARE 244 MG/DL (70-110)
[2019-06-28 16:00] VITALS: BP 124/77
[2019-06-28 16:29] LABS: GLUCOMETER DEV NAME(LOC) BV2S.; GLUCOSE,POINT OF CARE 166 MG/DL (70-110)
[2019-06-28] MEDS: OLANZapine 10 MG TABLET PO SCH (20:14)
[2019-06-28 20:26] LABS: GLUCOMETER DEV NAME(LOC) BV2S.; GLUCOSE,POINT OF CARE 195 MG/DL (70-110)
[2019-06-29 05:16] VITALS: BP 121/80
[2019-06-29 05:19] LABS: GLUCOMETER DEV NAME(LOC) BV2S.; GLUCOSE,POINT OF CARE 112 MG/DL (70-110)
[2019-06-29] MEDS: MetFORMIN HCL 500 MG TABLET PO SCH ×2 (06:28→16:29)
[2019-06-29] MEDS: ESCITALOPRAM OXALATE 10 MG TABLET PO SCH (08:04)
[2019-06-29] MEDS: BuPROPion HCL XL 150 MG ER TABLET PO SCH (08:04)
[2019-06-29] MEDS: ARIPiprazole 10 MG TABLET PO SCH (08:05)
[2019-06-29 08:23] LABS: GLUCOMETER DEV NAME(LOC) BV2S.; GLUCOSE,POINT OF CARE 230 MG/DL (70-110)
[2019-06-29] MEDS: INSULIN GLARGINE,HUM.REC.ANLOG 100 UNITS/ML SQ SCH ×2 (08:26→16:30)
[2019-06-29 08:48] VITALS: BP 121/81
[2019-06-29] MEDS: LORazepam 2 MG TABLET PO PRN (10:12)
[2019-06-29 11:38] LABS: GLUCOMETER DEV NAME(LOC) BV2S.; GLUCOSE,POINT OF CARE 120 MG/DL (70-110)
[2019-06-29] MEDS: INSULIN LISPRO 100 UNITS/ML SQ PRN ×2 (16:31→20:38)
[2019-06-29 16:32] LABS: GLUCOMETER DEV NAME(LOC) BV2S.; GLUCOSE,POINT OF CARE 263 MG/DL (70-110)
[2019-06-29 17:31] VITALS: BP 111/86
[2019-06-29] MEDS: OLANZapine 10 MG TABLET PO SCH (20:28)
[2019-06-29] MEDS: ZOLPIDEM TARTRATE 10 MG TABLET PO PRN (20:29)
[2019-06-29 21:53] LABS: GLUCOMETER DEV NAME(LOC) BV2S.; GLUCOSE,POINT OF CARE 153 MG/DL (70-110)
[2019-06-30 00:14] VITALS: BP 116/93
[2019-06-30] MEDS ORDERED: ESCI10TA PO (03:43)
[2019-06-30] MEDS ORDERED: ARIP10TA8 PO (03:43)
[2019-06-30] MEDS ORDERED: BUPR-93 PO (03:43)
[2019-06-30] MEDS ORDERED: OLAN10TA3 PO (03:43)
[2019-06-30] MEDS ORDERED: METF-960 PO (03:49)
[2019-06-30] MEDS ORDERED: INSLAN SQ (03:49)
[2019-06-30] MEDS ORDERED: INSULIN LISPRO 100 UNITS/ML SQ PRN (04:30)
[2019-06-30 06:05] LABS: GLUCOMETER DEV NAME(LOC) BV2S.; GLUCOSE,POINT OF CARE 144 MG/DL (70-110)
[2019-06-30] MEDS: MetFORMIN HCL 500 MG TABLET PO SCH (06:45)
[2019-06-30] MEDS: ARIPiprazole 10 MG TABLET PO SCH (08:04)
[2019-06-30] MEDS: ESCITALOPRAM OXALATE 10 MG TABLET PO SCH (08:04)
[2019-06-30] MEDS: BuPROPion HCL XL 150 MG ER TABLET PO SCH (08:04)
[2019-06-30] MEDS: INSULIN GLARGINE,HUM.REC.ANLOG 100 UNITS/ML SQ SCH (08:12)
[2019-06-30 08:59] VITALS: BP 125/75
== END 2019-06-30 09:48 | disposition home or self-care (01) | DRG 750 ==
LOC: EMS 18:12 → B2S 06-21 10:35
PROVIDERS: ADMIT Psychiatry & Neurology Psychiatry; ATTEND Psychiatry & Neurology Psychiatry
PROC: 3E0234Z Introduction of Serum, Toxoid and Vaccine into Muscle, Percutaneous Approach (ICD-10-PCS; principal; 2019-06-21)
DX: F25.0 Schizoaffective disorder, bipolar type (principal); N17.9 Acute kidney failure, unspecified; E11.22 Type 2 diabetes mellitus with diabetic chronic kidney disease; E11.65 Type 2 diabetes mellitus with hyperglycemia; B18.2 Chronic viral hepatitis C; F10.10 Alcohol abuse, uncomplicated; F15.10 Other stimulant abuse, uncomplicated; F17.200 Nicotine dependence, unspecified, uncomplicated; I12.9 Hypertensive chronic kidney disease with stage 1 through stage 4 chronic kidney disease, or unspecified chronic kidney disease; J45.909 Unspecified asthma, uncomplicated; N18.9 Chronic kidney disease, unspecified; F11.90 Opioid use, unspecified, uncomplicated; R45.851 Suicidal ideations; Z86.59 Personal history of other mental and behavioral disorders; Z91.5 Personal history of self-harm; Z71.41 Alcohol abuse counseling and surveillance of alcoholic; Z23 Encounter for immunization
CPT/HCPCS: 84439; 84443; 90732; G0480; J1815

== ENCOUNTER 2019-08-28 07:30 | Emergency (ER) | payer MEDICAID ==
[~2019-08-28] VITALS: Ht 182.9 cm; Wt 100.0 kg
[2019-08-28] MEDS ORDERED: LORazepam 2 MG TABLET PO ONE (09:00)
[2019-08-28] MEDS ORDERED: OLANZapine 5 MG TABLET PO ONE (09:00)
[2019-08-28 09:06] LABS: AMPHET/METH SCREEN,URINE POSITIVE (NEGATIVE); BARBITURATE SCREEN, URINE NEGATIVE (NEGATIVE); BENZODIAZEPINES SCREEN,URINE NEGATIVE (NEGATIVE); CANNABINOID SCREEN,URINE NEGATIVE (NEGATIVE); COCAINE SCREEN,URINE NEGATIVE (NEGATIVE); METHADONE SCREEN, URINE NEGATIVE (NEGATIVE); OPIATE SCREEN,URINE NEGATIVE (NEGATIVE)
[2019-08-28 09:17] LABS: PHENCYCLIDINE SCREEN,URINE NEGATIVE (NEGATIVE)
[2019-08-28 09:19] LABS: BASOPHILS % (AUTO) 0.5 % (0.0-2.0); EOSINOPHILS % (AUTO) 0.1 % (1.0-6.0); HEMATOCRIT 47.2 % (41-53); HEMOGLOBIN 15.4 g/dL (13.5-17.5); LYMPHOCYTES # (AUTO) 3.7 K/uL (1.0-4.8); MEAN CORPUSCULAR HEMOGLOBIN 30.1 pg (26.0-34.0); MEAN CORPUSCULAR HGB CONC 32.7 G/dL (31.0-37.0); MEAN CORPUSCULAR VOLUME 92 fL (80-100); MONOCYTES # (AUTO) 0.4 K/uL (0.1-1.0); MONOCYTES % (AUTO) 4.1 % (2.0-9.0); NEUTROPHILS # (AUTO) 5.7 K/uL (1.8-7.7); NEUTROPHILS % (AUTO) 57.3 % (40.0-70.0); PLATELET COUNT (AUTO) 283 K/uL (150-450); RED BLOOD CELL COUNT(AUTO) 5.12 MIL/uL (4.50-5.90)
[2019-08-28 09:30] LABS: ANION GAP 10 mmol/L (8-16); CALCIUM, TOTAL 9.5 mg/dL (8.8-10.5); CARBON DIOXIDE 24 mmol/L (22-29); CHLORIDE 105 mmol/L (98-107); CREATININE 1.29 mg/dL (0.60-1.30); GLOMERULAR FILTR. RATE CALC 58 mL/min (>60); GLUCOSE,RANDOM 122 mg/dL (70-110); POTASSIUM 4.4 mmol/L (3.5-5.1); SODIUM SERUM 139 mmol/L (136-145); UREA NITROGEN, BLOOD 23 mg/dL (7-18)
[2019-08-28 09:36] LABS: ALANINE AMINOTRANSFERASE 95 U/L (12-78); ALKALINE PHOSPHATASE 103 U/L (46-116); ASPARTATE AMINOTRANSFERASE 53 U/L (15-37); BILIRUBIN,TOTAL 0.6 mg/dL (0.1-1.0); TOTAL PROTEIN, SERUM 8.8 g/dL (6.4-8.2)
[2019-08-28 11:15] VITALS: BP 132/84
== END 2019-08-28 10:37 | disposition home or self-care (01) ==
LOC: EMS 07:31
DX: R45.851 Suicidal ideations (principal); F15.10 Other stimulant abuse, uncomplicated; F32.9 Major depressive disorder, single episode, unspecified; J45.909 Unspecified asthma, uncomplicated; I10 Essential (primary) hypertension; F20.9 Schizophrenia, unspecified; F17.210 Nicotine dependence, cigarettes, uncomplicated; F11.90 Opioid use, unspecified, uncomplicated; F19.90 Other psychoactive substance use, unspecified, uncomplicated; Z88.6 Allergy status to analgesic agent; Z91.018 Allergy to other foods; Z79.4 Long term (current) use of insulin; Z79.84 Long term (current) use of oral hypoglycemic drugs
CPT/HCPCS: 36415; 80053; 80307; 82962; 85025; 99285; G0480

== ENCOUNTER 2019-08-28 16:51 | Inpatient (IN) | payer MEDICAID ==
[~2019-08-28] VITALS: Ht 182.9 cm; Wt 108.9 kg
[2019-08-28 17:17] LABS: BASOPHILS % (AUTO) 0.8 % (0.0-2.0); EOSINOPHILS % (AUTO) 0.4 % (1.0-6.0); HEMATOCRIT 43.8 % (41-53); HEMOGLOBIN 14.7 g/dL (13.5-17.5); LYMPHOCYTES % (AUTO) 44.1 % (22.0-44.0); MEAN CORPUSCULAR HEMOGLOBIN 30.9 pg (26.0-34.0); MEAN CORPUSCULAR HGB CONC 33.5 G/dL (31.0-37.0); MEAN CORPUSCULAR VOLUME 92 fL (80-100); MONOCYTES # (AUTO) 0.6 K/uL (0.1-1.0); MONOCYTES % (AUTO) 6.5 % (2.0-9.0); NEUTROPHILS # (AUTO) 4.4 K/uL (1.8-7.7); NEUTROPHILS % (AUTO) 48.2 % (40.0-70.0); PLATELET COUNT (AUTO) 261 K/uL (150-450); RED BLOOD CELL COUNT(AUTO) 4.76 MIL/uL (4.50-5.90); RED CELL DISTRIBUTION WIDTH 13.1 % (11.5-14.5)
[2019-08-28 17:28] LABS: ANION GAP 7 mmol/L (8-16); CALCIUM, TOTAL 9.5 mg/dL (8.8-10.5); CARBON DIOXIDE 27 mmol/L (22-29); CHLORIDE 107 mmol/L (98-107); CREATININE 1.31 mg/dL (0.60-1.30); GLOMERULAR FILTR. RATE CALC 57 mL/min (>60); GLUCOSE,RANDOM 114 mg/dL (70-110); POTASSIUM 4.1 mmol/L (3.5-5.1); SODIUM SERUM 141 mmol/L (136-145); UREA NITROGEN, BLOOD 23 mg/dL (7-18)
[2019-08-28 17:42] LABS: ALANINE AMINOTRANSFERASE 86 U/L (12-78); ALBUMIN 3.8 g/dL (3.4-5.0); ALKALINE PHOSPHATASE 97 U/L (46-116); ASPARTATE AMINOTRANSFERASE 50 U/L (15-37); BILIRUBIN,TOTAL 0.7 mg/dL (0.1-1.0); TOTAL PROTEIN, SERUM 8.3 g/dL (6.4-8.2)
[2019-08-28 20:11] LABS: APPEARANCE,URINE CLEAR (CLEAR); GLUCOSE, URINE (UA) NEGATIVE (NEGATIVE); KETONES,URINE NEGATIVE (NEGATIVE); LEUKOCYTE ESTERASE ,URINE NEGATIVE (NEGATIVE); NITRATE,URINE NEGATIVE (NEGATIVE); OCCULT BLOOD,URINE NEGATIVE (NEGATIVE); PROTEIN,URINE TRACE (NEGATIVE)
[2019-08-28 20:16] LABS: AMPHET/METH SCREEN,URINE POSITIVE (NEGATIVE); BARBITURATE SCREEN, URINE NEGATIVE (NEGATIVE); BENZODIAZEPINES SCREEN,URINE NEGATIVE (NEGATIVE); CANNABINOID SCREEN,URINE NEGATIVE (NEGATIVE); COCAINE SCREEN,URINE NEGATIVE (NEGATIVE); METHADONE SCREEN, URINE NEGATIVE (NEGATIVE); OPIATE SCREEN,URINE NEGATIVE (NEGATIVE); PHENCYCLIDINE SCREEN,URINE NEGATIVE (NEGATIVE)
[2019-08-28 20:33] LABS: BILIRUBIN,URINE PRELIM. POSITIVE (NEGATIVE)
[2019-08-28 20:35] LABS: RBC,URINE None Seen /HPF (0-2); WBC,URINE 0-2 /HPF (0-5)
[2019-08-28 20:36] LABS: BACTERIA,URINE None Seen /HPF (None Seen); SQUAMOUS EPITHELIAL CELL,UR Moderate /LPF (None Seen)
[2019-08-28 22:07] VITALS: BP 130/78
[2019-08-28 22:13] LABS: GLUCOMETER DEV NAME(LOC) BV2S.; GLUCOSE,POINT OF CARE 188 MG/DL (70-110)
[2019-08-28] MEDS ORDERED: -PHARMACY VACCINE NOTE- MISC ONE (22:15)
[2019-08-28] MEDS ORDERED: GLUCAGON,HUMAN RECOMBINANT 1 MG VIAL IM PRN (22:30)
[2019-08-29 05:08] VITALS: BP 119/80
[2019-08-29 06:31] LABS: GLUCOMETER DEV NAME(LOC) BV2S.; GLUCOSE,POINT OF CARE 132 MG/DL (70-110)
[2019-08-29] MEDS: MetFORMIN HCL 500 MG TABLET PO SCH ×2 (07:03→16:50)
[2019-08-29 08:28] VITALS: BP 109/72
[2019-08-29] MEDS: INSULIN GLARGINE,HUM.REC.ANLOG 100 UNITS/ML SQ SCH ×2 (09:08→17:16)
[2019-08-29] MEDS ORDERED: HALOPERIDOL 5 MG TABLET PO PRN (10:30)
[2019-08-29] MEDS: BuPROPion HCL XL 150 MG ER TABLET PO SCH (10:40)
[2019-08-29] MEDS: ARIPiprazole 10 MG TABLET PO SCH (10:41)
[2019-08-29] MEDS: INSULIN LISPRO 100 UNITS/ML SQ PRN (10:45)
[2019-08-29] MEDS ORDERED: PETROLATUM,WHITE 28 GM JELLY TP PRN (11:00)
[2019-08-29] MEDS ORDERED: MAG HYDROX/AL HYDROX/SIMETH ES 30 ML SUSPENSION UDCUP PO PRN (11:00)
[2019-08-29] MEDS ORDERED: DOCUSATE SODIUM 100 MG CAPSULE PO PRN (11:00)
[2019-08-29] MEDS ORDERED: NICOTINE 14 MG/24 HOUR PATCH TD PRN (11:00)
[2019-08-29] MEDS ORDERED: ONDANSETRON HCL 4 MG TABLET PO PRN (11:00)
[2019-08-29] MEDS ORDERED: LOPERAMIDE HCL 2 MG CAPSULE PO PRN (11:00)
[2019-08-29] MEDS ORDERED: GuaiFENesin/D-METHORPHAN [SUGAR-FREE] 200-20MG/10 ML SYRUP UDCUP PO PRN (11:00)
[2019-08-29] MEDS ORDERED: MAGNESIUM HYDROXIDE SUSPENSION 30 ML UDCUP PO PRN (11:00)
[2019-08-29] MEDS ORDERED: CloNIDine HCL 0.1 MG TABLET PO PRN (11:00)
[2019-08-29] MEDS ORDERED: IBUPROFEN 400 MG TABLET PO PRN (11:00)
[2019-08-29] MEDS ORDERED: ALBUTEROL SULFATE HFA 90 MCG/PUFF 8 GM INHALER IH PRN (11:00)
[2019-08-29 11:07] LABS: GLUCOMETER DEV NAME(LOC) BV2S.; GLUCOSE,POINT OF CARE 151 MG/DL (70-110)
[2019-08-29 16:02] LABS: GLUCOMETER DEV NAME(LOC) BV2S.; GLUCOSE,POINT OF CARE 98 MG/DL (70-110)
[2019-08-29 17:39] VITALS: BP 101/62
[2019-08-29 20:13] LABS: GLUCOMETER DEV NAME(LOC) BV2S.; GLUCOSE,POINT OF CARE 126 MG/DL (70-110)
[2019-08-30 00:18] VITALS: BP 110/70
[2019-08-30 06:51] LABS: GLUCOMETER DEV NAME(LOC) BV2S.; GLUCOSE,POINT OF CARE 67 MG/DL (70-110)
[2019-08-30] MEDS: MetFORMIN HCL 500 MG TABLET PO SCH ×2 (07:12→16:38)
[2019-08-30 07:21] LABS: GLUCOMETER DEV NAME(LOC) BV2S.; GLUCOSE,POINT OF CARE 105 MG/DL (70-110)
[2019-08-30 08:15] VITALS: BP 102/73
[2019-08-30] MEDS: ARIPiprazole 10 MG TABLET PO SCH (08:24)
[2019-08-30] MEDS: BuPROPion HCL XL 150 MG ER TABLET PO SCH (08:25)
[2019-08-30] MEDS: INSULIN GLARGINE,HUM.REC.ANLOG 100 UNITS/ML SQ SCH ×2 (08:29→16:30)
[2019-08-30 10:56] LABS: GLUCOMETER DEV NAME(LOC) BV2S.; GLUCOSE,POINT OF CARE 83 MG/DL (70-110)
[2019-08-30 15:53] LABS: GLUCOMETER DEV NAME(LOC) BV2S.; GLUCOSE,POINT OF CARE 144 MG/DL (70-110)
[2019-08-30] MEDS: INSULIN LISPRO 100 UNITS/ML SQ PRN (16:30)
[2019-08-30 16:37] VITALS: BP 116/75
[2019-08-30 17:21] LABS: GLUCOMETER DEV NAME(LOC) BV2S.; GLUCOSE,POINT OF CARE 152 MG/DL (70-110)
[2019-08-31 00:32] VITALS: BP 146/89
[2019-08-31] MEDS: MetFORMIN HCL 500 MG TABLET PO SCH ×4 (06:25→16:28)
[2019-08-31 07:01] LABS: GLUCOMETER DEV NAME(LOC) BV2S.; GLUCOSE,POINT OF CARE 69 MG/DL (70-110)
[2019-08-31 07:37] LABS: GLUCOMETER DEV NAME(LOC) BV2S.; GLUCOSE,POINT OF CARE 102 MG/DL (70-110)
[2019-08-31] MEDS: INSULIN GLARGINE,HUM.REC.ANLOG 100 UNITS/ML SQ SCH ×2 (08:17→16:35)
[2019-08-31] MEDS: ARIPiprazole 10 MG TABLET PO SCH (08:18)
[2019-08-31] MEDS: BuPROPion HCL XL 150 MG ER TABLET PO SCH (08:19)
[2019-08-31 08:27] LABS: GLUCOMETER DEV NAME(LOC) BV2S.; GLUCOSE,POINT OF CARE 154 MG/DL (70-110)
[2019-08-31 09:24] VITALS: BP 125/85
[2019-08-31 13:30] LABS: GLUCOMETER DEV NAME(LOC) BV2S.; GLUCOSE,POINT OF CARE 140 MG/DL (70-110)
[2019-08-31 16:09] VITALS: BP 126/68
[2019-08-31 16:09] LABS: GLUCOMETER DEV NAME(LOC) BV2S.; GLUCOSE,POINT OF CARE 151 MG/DL (70-110)
[2019-08-31] MEDS: INSULIN LISPRO 100 UNITS/ML SQ PRN (16:37)
[2019-08-31 20:19] LABS: GLUCOMETER DEV NAME(LOC) BV2S.; GLUCOSE,POINT OF CARE 104 MG/DL (70-110)
[2019-09-01 05:10] VITALS: BP 122/71
[2019-09-01 06:08] LABS: GLUCOMETER DEV NAME(LOC) BV2S.; GLUCOSE,POINT OF CARE 75 MG/DL (70-110)
[2019-09-01] MEDS: MetFORMIN HCL 500 MG TABLET PO SCH ×2 (06:37→16:01)
[2019-09-01 08:14] VITALS: BP 121/69
[2019-09-01] MEDS: INSULIN GLARGINE,HUM.REC.ANLOG 100 UNITS/ML SQ SCH ×2 (08:23→16:36)
[2019-09-01] MEDS: ARIPiprazole 10 MG TABLET PO SCH (08:23)
[2019-09-01] MEDS: BuPROPion HCL XL 150 MG ER TABLET PO SCH (08:24)
[2019-09-01 08:29] LABS: GLUCOMETER DEV NAME(LOC) BV2S.; GLUCOSE,POINT OF CARE 118 MG/DL (70-110)
[2019-09-01 13:20] LABS: GLUCOMETER DEV NAME(LOC) BV2S.; GLUCOSE,POINT OF CARE 151 MG/DL (70-110)
[2019-09-01] MEDS: INSULIN LISPRO 100 UNITS/ML SQ PRN (13:26)
[2019-09-01 16:03] VITALS: BP 131/80
[2019-09-01 16:17] LABS: GLUCOMETER DEV NAME(LOC) BV2S.; GLUCOSE,POINT OF CARE 110 MG/DL (70-110)
[2019-09-01 20:06] LABS: GLUCOMETER DEV NAME(LOC) BV2S.; GLUCOSE,POINT OF CARE 108 MG/DL (70-110)
[2019-09-02 01:39] VITALS: BP 131/95
[2019-09-02 05:31] LABS: GLUCOMETER DEV NAME(LOC) BV2S.; GLUCOSE,POINT OF CARE 82 MG/DL (70-110)
[2019-09-02] MEDS: MetFORMIN HCL 500 MG TABLET PO SCH ×2 (06:11→17:04)
[2019-09-02] MEDS: LORazepam 2 MG TABLET PO PRN ×3 (06:11→16:19)
[2019-09-02 08:08] VITALS: BP 100/60
[2019-09-02] MEDS: BuPROPion HCL XL 150 MG ER TABLET PO SCH (08:23)
[2019-09-02] MEDS: ARIPiprazole 10 MG TABLET PO SCH (08:23)
[2019-09-02] MEDS: INSULIN GLARGINE,HUM.REC.ANLOG 100 UNITS/ML SQ SCH ×2 (08:32→16:21)
[2019-09-02 10:08] LABS: GLUCOMETER DEV NAME(LOC) BV2S.; GLUCOSE,POINT OF CARE 142 MG/DL (70-110)
[2019-09-02 11:01] LABS: GLUCOMETER DEV NAME(LOC) BV2S.; GLUCOSE,POINT OF CARE 86 MG/DL (70-110)
[2019-09-02 16:28] VITALS: BP 138/86
[2019-09-02 16:33] LABS: GLUCOMETER DEV NAME(LOC) BV2S.; GLUCOSE,POINT OF CARE 121 MG/DL (70-110)
[2019-09-02 20:50] LABS: GLUCOMETER DEV NAME(LOC) BV2S.; GLUCOSE,POINT OF CARE 109 MG/DL (70-110)
[2019-09-02] MEDS: ZOLPIDEM TARTRATE 10 MG TABLET PO PRN (21:19)
[2019-09-03 00:11] VITALS: BP 125/78
[2019-09-03] MEDS: LORazepam 2 MG TABLET PO PRN ×3 (06:05→16:02)
[2019-09-03] MEDS: MetFORMIN HCL 500 MG TABLET PO SCH ×2 (06:12→16:02)
[2019-09-03 06:22] LABS: GLUCOMETER DEV NAME(LOC) BV2S.; GLUCOSE,POINT OF CARE 95 MG/DL (70-110)
[2019-09-03 08:29] VITALS: BP 129/76
[2019-09-03] MEDS: BuPROPion HCL XL 150 MG ER TABLET PO SCH (08:34)
[2019-09-03] MEDS: ARIPiprazole 10 MG TABLET PO SCH (08:34)
[2019-09-03] MEDS: INSULIN GLARGINE,HUM.REC.ANLOG 100 UNITS/ML SQ SCH ×2 (08:45→16:55)
[2019-09-03 08:51] LABS: GLUCOMETER DEV NAME(LOC) BV2S.; GLUCOSE,POINT OF CARE 144 MG/DL (70-110)
[2019-09-03 13:44] LABS: GLUCOMETER DEV NAME(LOC) BV2S.; GLUCOSE,POINT OF CARE 109 MG/DL (70-110)
[2019-09-03 16:10] VITALS: BP 125/75
[2019-09-03 16:17] LABS: GLUCOMETER DEV NAME(LOC) BV2S.; GLUCOSE,POINT OF CARE 149 MG/DL (70-110)
[2019-09-03] MEDS: INSULIN LISPRO 100 UNITS/ML SQ PRN (17:42)
[2019-09-03 20:15] LABS: GLUCOMETER DEV NAME(LOC) BV2S.; GLUCOSE,POINT OF CARE 110 MG/DL (70-110)
[2019-09-04 05:40] VITALS: BP 140/90
[2019-09-04] MEDS: LORazepam 2 MG TABLET PO PRN ×4 (05:42→18:58)
[2019-09-04 06:00] LABS: GLUCOMETER DEV NAME(LOC) BV2S.; GLUCOSE,POINT OF CARE 91 MG/DL (70-110)
[2019-09-04] MEDS: MetFORMIN HCL 500 MG TABLET PO SCH ×2 (06:43→16:45)
[2019-09-04] MEDS: ARIPiprazole 10 MG TABLET PO SCH (08:21)
[2019-09-04] MEDS: BuPROPion HCL XL 150 MG ER TABLET PO SCH (08:22)
[2019-09-04] MEDS: INSULIN GLARGINE,HUM.REC.ANLOG 100 UNITS/ML SQ SCH ×2 (08:32→16:19)
[2019-09-04 08:38] VITALS: BP 125/80
[2019-09-04 08:39] LABS: GLUCOMETER DEV NAME(LOC) BV2S.; GLUCOSE,POINT OF CARE 163 MG/DL (70-110)
[2019-09-04 09:57] LABS: FREE T4 (FREE THYROXINE) 1.04 ng/dL (0.76-1.46); THYROID STIMULATING HORMONE 3.46 uIU/mL (0.36-3.74)
[2019-09-04 13:38] LABS: GLUCOMETER DEV NAME(LOC) BV2S.; GLUCOSE,POINT OF CARE 127 MG/DL (70-110)
[2019-09-04 16:08] VITALS: BP 101/81
[2019-09-04 16:28] LABS: GLUCOMETER DEV NAME(LOC) BV2S.; GLUCOSE,POINT OF CARE 99 MG/DL (70-110)
[2019-09-04 20:14] LABS: GLUCOMETER DEV NAME(LOC) BV2S.; GLUCOSE,POINT OF CARE 121 MG/DL (70-110)
[2019-09-04] MEDS: ZOLPIDEM TARTRATE 10 MG TABLET PO PRN (22:02)
[2019-09-05 05:59] VITALS: BP 111/87
[2019-09-05] MEDS: LORazepam 2 MG TABLET PO PRN ×3 (06:21→17:34)
[2019-09-05] MEDS: MetFORMIN HCL 500 MG TABLET PO SCH ×2 (06:21→16:34)
[2019-09-05 06:31] LABS: GLUCOMETER DEV NAME(LOC) BV2S.; GLUCOSE,POINT OF CARE 88 MG/DL (70-110)
[2019-09-05] MEDS: ARIPiprazole 10 MG TABLET PO SCH (08:03)
[2019-09-05] MEDS: BuPROPion HCL XL 150 MG ER TABLET PO SCH (08:03)
[2019-09-05] MEDS: INSULIN GLARGINE,HUM.REC.ANLOG 100 UNITS/ML SQ SCH ×2 (08:07→17:31)
[2019-09-05 08:17] LABS: GLUCOMETER DEV NAME(LOC) BV2S.; GLUCOSE,POINT OF CARE 156 MG/DL (70-110)
[2019-09-05 08:50] VITALS: BP 126/83
[2019-09-05 13:30] LABS: GLUCOMETER DEV NAME(LOC) BV2S.; GLUCOSE,POINT OF CARE 124 MG/DL (70-110)
[2019-09-05 16:19] LABS: GLUCOMETER DEV NAME(LOC) BV2S.; GLUCOSE,POINT OF CARE 152 MG/DL (70-110)
[2019-09-05 16:37] VITALS: BP 122/80
[2019-09-05] MEDS: INSULIN LISPRO 100 UNITS/ML SQ PRN (17:31)
[2019-09-05 20:37] LABS: GLUCOMETER DEV NAME(LOC) BV2S.; GLUCOSE,POINT OF CARE 95 MG/DL (70-110)
[2019-09-05] MEDS: ZOLPIDEM TARTRATE 10 MG TABLET PO PRN (20:47)
[2019-09-06 00:25] VITALS: BP 115/63
[2019-09-06 06:31] LABS: GLUCOMETER DEV NAME(LOC) BV2S.; GLUCOSE,POINT OF CARE 103 MG/DL (70-110)
[2019-09-06] MEDS: MetFORMIN HCL 500 MG TABLET PO SCH ×2 (06:37→16:56)
[2019-09-06] MEDS: BuPROPion HCL XL 150 MG ER TABLET PO SCH (08:11)
[2019-09-06] MEDS: ARIPiprazole 10 MG TABLET PO SCH (08:12)
[2019-09-06] MEDS: INSULIN GLARGINE,HUM.REC.ANLOG 100 UNITS/ML SQ SCH ×2 (08:14→16:57)
[2019-09-06 08:22] VITALS: BP 123/77
[2019-09-06] MEDS: INSULIN LISPRO 100 UNITS/ML SQ PRN ×2 (11:01→20:27)
[2019-09-06] MEDS: LORazepam 2 MG TABLET PO PRN ×2 (11:32→16:13)
[2019-09-06 14:16] LABS: GLUCOMETER DEV NAME(LOC) BV2S.; GLUCOSE,POINT OF CARE 159 MG/DL (70-110)
[2019-09-06 16:05] VITALS: BP 112/77
[2019-09-06 17:31] LABS: GLUCOMETER DEV NAME(LOC) BV2S.; GLUCOSE,POINT OF CARE 91 MG/DL (70-110)
[2019-09-06] MEDS ORDERED: BENZOCAINE 10% 7 GM GEL TP PRN (17:45)
[2019-09-06] MEDS ORDERED: TraMADol HCL 50 MG TABLET PO PRN (17:45)
[2019-09-06] MEDS: ZOLPIDEM TARTRATE 10 MG TABLET PO PRN (22:13)
[2019-09-06 22:37] LABS: GLUCOMETER DEV NAME(LOC) BV2S.; GLUCOSE,POINT OF CARE 160 MG/DL (70-110)
[2019-09-07 03:56] VITALS: BP 131/84
[2019-09-07 06:12] LABS: GLUCOMETER DEV NAME(LOC) BV2S.; GLUCOSE,POINT OF CARE 96 MG/DL (70-110)
[2019-09-07] MEDS: LORazepam 2 MG TABLET PO PRN ×3 (06:39→18:55)
[2019-09-07] MEDS: MetFORMIN HCL 500 MG TABLET PO SCH ×2 (06:59→16:26)
[2019-09-07] MEDS: INSULIN GLARGINE,HUM.REC.ANLOG 100 UNITS/ML SQ SCH ×2 (08:51→17:27)
[2019-09-07] MEDS: ARIPiprazole 10 MG TABLET PO SCH (08:52)
[2019-09-07] MEDS: BuPROPion HCL XL 150 MG ER TABLET PO SCH (08:52)
[2019-09-07 09:26] VITALS: BP 140/98
[2019-09-07 11:49] LABS: GLUCOMETER DEV NAME(LOC) BV2S.; GLUCOSE,POINT OF CARE 105 MG/DL (70-110)
[2019-09-07 16:01] VITALS: BP 120/84
[2019-09-07 16:37] LABS: GLUCOMETER DEV NAME(LOC) BV2S.; GLUCOSE,POINT OF CARE 137 MG/DL (70-110)
[2019-09-07 20:15] LABS: GLUCOMETER DEV NAME(LOC) BV2S.; GLUCOSE,POINT OF CARE 182 MG/DL (70-110)
[2019-09-07] MEDS: INSULIN LISPRO 100 UNITS/ML SQ PRN (21:33)
[2019-09-08 02:35] VITALS: BP 126/76
[2019-09-08 05:47] LABS: GLUCOMETER DEV NAME(LOC) BV2S.; GLUCOSE,POINT OF CARE 92 MG/DL (70-110)
[2019-09-08 06:14] VITALS: BP 109/71
[2019-09-08] MEDS: LORazepam 2 MG TABLET PO PRN ×2 (06:14→12:11)
[2019-09-08] MEDS: MetFORMIN HCL 500 MG TABLET PO SCH (07:10)
[2019-09-08] MEDS: ARIPiprazole 10 MG TABLET PO SCH (08:35)
[2019-09-08] MEDS: BuPROPion HCL XL 150 MG ER TABLET PO SCH (08:35)
[2019-09-08] MEDS: INSULIN GLARGINE,HUM.REC.ANLOG 100 UNITS/ML SQ SCH (08:42)
[2019-09-08 08:45] LABS: GLUCOMETER DEV NAME(LOC) BV2S.; GLUCOSE,POINT OF CARE 139 MG/DL (70-110)
[2019-09-08 08:53] VITALS: BP 122/78
[2019-09-08] MEDS ORDERED: INSLAN SQ (13:53)
== END 2019-09-08 14:58 | disposition home or self-care (01) | DRG 885 ==
LOC: EMS 16:58 → B2S 21:46
PROVIDERS: ADMIT Psychiatry & Neurology Psychiatry; ATTEND Psychiatry & Neurology Psychiatry
DX: F25.0 Schizoaffective disorder, bipolar type (principal); B18.2 Chronic viral hepatitis C; R45.851 Suicidal ideations; N40.0 Benign prostatic hyperplasia without lower urinary tract symptoms; I10 Essential (primary) hypertension; J45.909 Unspecified asthma, uncomplicated; K21.9 Gastro-esophageal reflux disease without esophagitis; F17.210 Nicotine dependence, cigarettes, uncomplicated; F11.90 Opioid use, unspecified, uncomplicated; E11.9 Type 2 diabetes mellitus without complications; E78.00 Pure hypercholesterolemia, unspecified; E78.5 Hyperlipidemia, unspecified; F10.10 Alcohol abuse, uncomplicated; F15.10 Other stimulant abuse, uncomplicated; Z59.0 Homelessness; Z86.59 Personal history of other mental and behavioral disorders; Z91.14 Patient's other noncompliance with medication regimen; Z88.8 Allergy status to other drugs, medicaments and biological substances; Z88.6 Allergy status to analgesic agent; Z91.018 Allergy to other foods; Z79.899 Other long term (current) drug therapy; Z90.49 Acquired absence of other specified parts of digestive tract
CPT/HCPCS: 84439; 84443; G0480; J1815

== ENCOUNTER → 2019-08-28 | Emergency (ER) | payer MEDICAID ==
[~2019-08-28] MED LIST changes: +ESCI-8 PO; +METF-960 PO; -MUPI1OIN5 TP
== END | disposition home or self-care (01) ==
LOC: EMS 18:09
DX: R45.851 Suicidal ideations (principal); Z53.21 Procedure and treatment not carried out due to patient leaving prior to being seen by health care provider

== ENCOUNTER 2019-09-16 14:16 | Inpatient (IN) | payer MEDICAID ==
[~2019-09-16] VITALS: Ht 182.9 cm; Wt 107.0 kg
[~2019-09-16 14:16] MED LIST changes: -ESCI-8 PO; -OLAN10TA3 PO
[2019-09-16] MEDS ORDERED: HALOPERIDOL LACTATE 5 MG/ML VIAL ONE (17:24)
[2019-09-16] MEDS ORDERED: LORazepam 2 MG/ML VIAL ONE (17:24)
[2019-09-16] MEDS ORDERED: DiphenhydrAMINE HCL 50 MG/ML VIAL ONE (17:24)
[2019-09-16] MEDS ORDERED: HALOPERIDOL LACTATE 5 MG/ML VIAL IM ONE (17:30)
[2019-09-16] MEDS ORDERED: LORazepam 2 MG/ML VIAL IM ONE (17:30)
[2019-09-16] MEDS ORDERED: DiphenhydrAMINE HCL 50 MG/ML VIAL IM ONE (17:30)
[2019-09-16 18:50] LABS: BASOPHILS % (AUTO) 0.9 % (0.0-2.0); EOSINOPHILS % (AUTO) 1.7 % (1.0-6.0); HEMATOCRIT 44.1 % (41-53); HEMOGLOBIN 14.6 g/dL (13.5-17.5); LYMPHOCYTES % (AUTO) 49.7 % (22.0-44.0); MEAN CORPUSCULAR HEMOGLOBIN 30.4 pg (26.0-34.0); MEAN CORPUSCULAR HGB CONC 33.1 G/dL (31.0-37.0); MEAN CORPUSCULAR VOLUME 92 fL (80-100); MONOCYTES # (AUTO) 0.3 K/uL (0.1-1.0); MONOCYTES % (AUTO) 5.7 % (2.0-9.0); NEUTROPHILS # (AUTO) 2.5 K/uL (1.8-7.7); PLATELET COUNT (AUTO) 228 K/uL (150-450); RED CELL DISTRIBUTION WIDTH 13.6 % (11.5-14.5)
[2019-09-16 19:05] LABS: ANION GAP 7 mmol/L (8-16); CALCIUM, TOTAL 9.4 mg/dL (8.8-10.5); CARBON DIOXIDE 26 mmol/L (22-29); CHLORIDE 108 mmol/L (98-107); CREATININE 1.32 mg/dL (0.60-1.30); GLOMERULAR FILTR. RATE CALC 56 mL/min (>60); GLUCOSE,RANDOM 112 mg/dL (70-110); POTASSIUM 3.9 mmol/L (3.5-5.1); SODIUM SERUM 141 mmol/L (136-145); UREA NITROGEN, BLOOD 22 mg/dL (7-18)
[2019-09-16 19:11] LABS: ALANINE AMINOTRANSFERASE 61 U/L (12-78); ALBUMIN 3.7 g/dL (3.4-5.0); ALKALINE PHOSPHATASE 91 U/L (46-116); ASPARTATE AMINOTRANSFERASE 37 U/L (15-37); BILIRUBIN,TOTAL 0.5 mg/dL (0.1-1.0); TOTAL PROTEIN, SERUM 8.2 g/dL (6.4-8.2)
[2019-09-16 22:21] VITALS: BP 147/91
[2019-09-16] MEDS ORDERED: ALBUTEROL SULFATE HFA 90 MCG/PUFF 8 GM INHALER IH PRN (23:00)
[2019-09-16] MEDS ORDERED: GuaiFENesin/D-METHORPHAN [SUGAR-FREE] 200-20MG/10 ML SYRUP UDCUP PO PRN (23:00)
[2019-09-16] MEDS ORDERED: PETROLATUM,WHITE 28 GM JELLY TP PRN (23:00)
[2019-09-16] MEDS ORDERED: CloNIDine HCL 0.1 MG TABLET PO PRN (23:00)
[2019-09-16] MEDS ORDERED: MAG HYDROX/AL HYDROX/SIMETH ES 30 ML SUSPENSION UDCUP PO PRN (23:00)
[2019-09-16] MEDS ORDERED: DOCUSATE SODIUM 100 MG CAPSULE PO PRN (23:00)
[2019-09-16] MEDS ORDERED: LOPERAMIDE HCL 2 MG CAPSULE PO PRN (23:00)
[2019-09-16] MEDS ORDERED: NICOTINE 14 MG/24 HOUR PATCH TD PRN (23:00)
[2019-09-16] MEDS ORDERED: ONDANSETRON HCL 4 MG TABLET PO PRN (23:00)
[2019-09-16] MEDS ORDERED: MAGNESIUM HYDROXIDE SUSPENSION 30 ML UDCUP PO PRN (23:00)
[2019-09-17 06:44] LABS: BASOPHILS % (AUTO) 1.1 % (0.0-2.0); HEMATOCRIT 43.6 % (41-53); HEMOGLOBIN 14.5 g/dL (13.5-17.5); LYMPHOCYTES # (AUTO) 3.4 K/uL (1.0-4.8); LYMPHOCYTES % (AUTO) 54.1 % (22.0-44.0); MEAN CORPUSCULAR HEMOGLOBIN 30.5 pg (26.0-34.0); MEAN CORPUSCULAR HGB CONC 33.3 G/dL (31.0-37.0); MEAN CORPUSCULAR VOLUME 92 fL (80-100); MONOCYTES # (AUTO) 0.3 K/uL (0.1-1.0); MONOCYTES % (AUTO) 5.1 % (2.0-9.0); NEUTROPHILS # (AUTO) 2.3 K/uL (1.8-7.7); NEUTROPHILS % (AUTO) 36.7 % (40.0-70.0); PLATELET COUNT (AUTO) 247 K/uL (150-450); RED BLOOD CELL COUNT(AUTO) 4.76 MIL/uL (4.50-5.90); RED CELL DISTRIBUTION WIDTH 13.2 % (11.5-14.5)
[2019-09-17 08:00] VITALS: BP 130/85
[2019-09-17] MEDS: INSULIN GLARGINE,HUM.REC.ANLOG 100 UNITS/ML SQ SCH ×2 (09:13→17:23)
[2019-09-17] MEDS: MetFORMIN HCL 500 MG TABLET PO SCH ×2 (09:13→17:24)
[2019-09-17] MEDS: BuPROPion HCL XL 150 MG ER TABLET PO SCH (09:16)
[2019-09-17] MEDS: ARIPiprazole 10 MG TABLET PO SCH (09:16)
[2019-09-17 09:18] LABS: GLUCOMETER DEV NAME(LOC) 3E.I 2; GLUCOSE,POINT OF CARE 242 MG/DL (70-110)
[2019-09-17] MEDS ORDERED: DEXTROSE 50%-WATER 25 GM/50 ML SYRINGE IVP PRN (10:30)
[2019-09-17 11:41] LABS: GLUCOMETER DEV NAME(LOC) 3E.I 2; GLUCOSE,POINT OF CARE 115 MG/DL (70-110)
[2019-09-17] MEDS: INSULIN LISPRO 100 UNITS/ML SQ PRN (11:46)
[2019-09-17 16:59] LABS: GLUCOMETER DEV NAME(LOC) 3E.I 2; GLUCOSE,POINT OF CARE 109 MG/DL (70-110)
[2019-09-17 17:06] VITALS: BP 140/83
[2019-09-17 20:34] LABS: GLUCOMETER DEV NAME(LOC) 3E.I 2; GLUCOSE,POINT OF CARE 125 MG/DL (70-110)
[2019-09-18 03:27] VITALS: BP 118/76
[2019-09-18 05:24] LABS: GLUCOMETER DEV NAME(LOC) 3E.I 2; GLUCOSE,POINT OF CARE 114 MG/DL (70-110)
[2019-09-18] MEDS: MetFORMIN HCL 500 MG TABLET PO SCH ×2 (07:04→16:40)
[2019-09-18] MEDS: INSULIN LISPRO 100 UNITS/ML SQ PRN ×2 (07:05→11:43)
[2019-09-18 08:00] VITALS: BP 130/86
[2019-09-18] MEDS: ARIPiprazole 10 MG TABLET PO SCH (08:43)
[2019-09-18] MEDS: BuPROPion HCL XL 150 MG ER TABLET PO SCH (08:43)
[2019-09-18] MEDS: INSULIN GLARGINE,HUM.REC.ANLOG 100 UNITS/ML SQ SCH ×2 (08:54→16:42)
[2019-09-18 11:56] LABS: GLUCOMETER DEV NAME(LOC) 3E.I 2; GLUCOSE,POINT OF CARE 120 MG/DL (70-110)
[2019-09-18] MEDS: HYDROCORTISONE 1% 30 GM OINTMENT TP SCH (13:27)
[2019-09-18 16:01] VITALS: BP 126/71
[2019-09-18] MEDS: GABAPENTIN 300 MG CAPSULE PO SCH (16:40)
[2019-09-18 16:51] LABS: GLUCOMETER DEV NAME(LOC) 3E.I 2; GLUCOSE,POINT OF CARE 95 MG/DL (70-110)
[2019-09-18 20:26] LABS: GLUCOMETER DEV NAME(LOC) 3E.I 2; GLUCOSE,POINT OF CARE 122 MG/DL (70-110)
[2019-09-19 05:48] LABS: GLUCOMETER DEV NAME(LOC) 3E.I 2; GLUCOSE,POINT OF CARE 74 MG/DL (70-110)
[2019-09-19] MEDS: MetFORMIN HCL 500 MG TABLET PO SCH ×2 (07:08→17:13)
[2019-09-19] MEDS: HYDROCORTISONE 1% 30 GM OINTMENT TP SCH (08:09)
[2019-09-19] MEDS: GABAPENTIN 300 MG CAPSULE PO SCH ×2 (08:11→17:13)
[2019-09-19] MEDS: BuPROPion HCL XL 150 MG ER TABLET PO SCH (08:11)
[2019-09-19] MEDS: ARIPiprazole 10 MG TABLET PO SCH (08:12)
[2019-09-19] MEDS: INSULIN GLARGINE,HUM.REC.ANLOG 100 UNITS/ML SQ SCH ×2 (08:22→17:14)
[2019-09-19 08:31] LABS: GLUCOMETER DEV NAME(LOC) 3E.I 2; GLUCOSE,POINT OF CARE 118 MG/DL (70-110)
[2019-09-19 09:28] VITALS: BP 123/81
[2019-09-19 12:15] LABS: GLUCOMETER DEV NAME(LOC) 3E.I 2; GLUCOSE,POINT OF CARE 112 MG/DL (70-110)
[2019-09-19 16:00] VITALS: BP 111/62
[2019-09-19 17:24] LABS: GLUCOMETER DEV NAME(LOC) 3E.I 2; GLUCOSE,POINT OF CARE 93 MG/DL (70-110)
[2019-09-19 21:16] LABS: GLUCOMETER DEV NAME(LOC) 3E.I 2; GLUCOSE,POINT OF CARE 131 MG/DL (70-110)
[2019-09-20 06:34] LABS: GLUCOMETER DEV NAME(LOC) 3E.I 2; GLUCOSE,POINT OF CARE 78 MG/DL (70-110)
[2019-09-20] MEDS: MetFORMIN HCL 500 MG TABLET PO SCH ×2 (07:19→17:03)
[2019-09-20] MEDS: BuPROPion HCL XL 150 MG ER TABLET PO SCH (08:41)
[2019-09-20] MEDS: GABAPENTIN 300 MG CAPSULE PO SCH ×2 (08:41→16:25)
[2019-09-20] MEDS: ARIPiprazole 10 MG TABLET PO SCH (08:41)
[2019-09-20] MEDS: HYDROCORTISONE 1% 30 GM OINTMENT TP SCH (08:44)
[2019-09-20] MEDS: INSULIN GLARGINE,HUM.REC.ANLOG 100 UNITS/ML SQ SCH (08:49)
[2019-09-20 10:00] VITALS: BP 123/76
[2019-09-20 12:23] LABS: GLUCOMETER DEV NAME(LOC) 3E.I 2; GLUCOSE,POINT OF CARE 106 MG/DL (70-110)
[2019-09-20 16:12] VITALS: BP 124/80
[2019-09-20 16:36] LABS: GLUCOMETER DEV NAME(LOC) 3E.I 2; GLUCOSE,POINT OF CARE 107 MG/DL (70-110)
[2019-09-20] MEDS: HydrOXYzine PAMOATE 50 MG CAPSULE PO PRN (17:16)
[2019-09-20] MEDS: INSULIN LISPRO 100 UNITS/ML SQ PRN (20:39)
[2019-09-20 20:48] LABS: GLUCOMETER DEV NAME(LOC) 3E.I 2; GLUCOSE,POINT OF CARE 167 MG/DL (70-110)
[2019-09-21 05:32] LABS: GLUCOMETER DEV NAME(LOC) 3E.I 2; GLUCOSE,POINT OF CARE 113 MG/DL (70-110)
[2019-09-21] MEDS: MetFORMIN HCL 500 MG TABLET PO SCH ×2 (06:36→17:35)
[2019-09-21 06:42] LABS: CALCIUM, TOTAL 9.2 mg/dL (8.8-10.5); CREATININE 1.34 mg/dL (0.60-1.30); POTASSIUM 4.8 mmol/L (3.5-5.1)
[2019-09-21] MEDS: ARIPiprazole 10 MG TABLET PO SCH (08:10)
[2019-09-21] MEDS: GABAPENTIN 300 MG CAPSULE PO SCH ×2 (08:10→16:37)
[2019-09-21] MEDS: BuPROPion HCL XL 150 MG ER TABLET PO SCH (08:10)
[2019-09-21] MEDS: HYDROCORTISONE 1% 30 GM OINTMENT TP SCH (09:00)
[2019-09-21 10:06] VITALS: BP 145/96
[2019-09-21 11:39] LABS: GLUCOMETER DEV NAME(LOC) 3E.I 2; GLUCOSE,POINT OF CARE 83 MG/DL (70-110)
[2019-09-21 16:22] LABS: GLUCOMETER DEV NAME(LOC) 3E.I 2; GLUCOSE,POINT OF CARE 130 MG/DL (70-110)
[2019-09-21 16:45] VITALS: BP 133/78
[2019-09-21] MEDS: INSULIN LISPRO 100 UNITS/ML SQ PRN (20:59)
[2019-09-21 21:08] LABS: GLUCOMETER DEV NAME(LOC) 3E.I 2; GLUCOSE,POINT OF CARE 157 MG/DL (70-110)
[2019-09-22 06:05] LABS: GLUCOMETER DEV NAME(LOC) 3E.I 2; GLUCOSE,POINT OF CARE 138 MG/DL (70-110)
[2019-09-22] MEDS: MetFORMIN HCL 500 MG TABLET PO SCH ×2 (06:26→16:45)
[2019-09-22] MEDS: ARIPiprazole 10 MG TABLET PO SCH (09:03)
[2019-09-22] MEDS: HYDROCORTISONE 1% 30 GM OINTMENT TP SCH (09:03)
[2019-09-22] MEDS: GABAPENTIN 300 MG CAPSULE PO SCH ×2 (09:03→16:45)
[2019-09-22] MEDS: HydrOXYzine PAMOATE 50 MG CAPSULE PO PRN (09:03)
[2019-09-22] MEDS: BuPROPion HCL XL 150 MG ER TABLET PO SCH (09:03)
[2019-09-22 12:06] LABS: GLUCOMETER DEV NAME(LOC) 3E.I 2; GLUCOSE,POINT OF CARE 92 MG/DL (70-110)
[2019-09-22 16:47] VITALS: BP 133/73
[2019-09-22 16:56] LABS: GLUCOMETER DEV NAME(LOC) 3E.I 2; GLUCOSE,POINT OF CARE 151 MG/DL (70-110)
[2019-09-22] MEDS: INSULIN LISPRO 100 UNITS/ML SQ PRN ×2 (16:57→21:09)
[2019-09-22 20:27] LABS: GLUCOMETER DEV NAME(LOC) 3E.I 2; GLUCOSE,POINT OF CARE 155 MG/DL (70-110)
[2019-09-23 05:32] LABS: GLUCOMETER DEV NAME(LOC) 3E.I 2; GLUCOSE,POINT OF CARE 122 MG/DL (70-110)
[2019-09-23] MEDS: MetFORMIN HCL 500 MG TABLET PO SCH (06:53)
[2019-09-23 08:00] VITALS: BP 120/74
[2019-09-23] MEDS: GABAPENTIN 300 MG CAPSULE PO SCH (08:45)
[2019-09-23] MEDS: HydrOXYzine PAMOATE 50 MG CAPSULE PO PRN (08:45)
[2019-09-23] MEDS: ARIPiprazole 10 MG TABLET PO SCH (08:45)
[2019-09-23] MEDS: BuPROPion HCL XL 150 MG ER TABLET PO SCH (08:45)
[2019-09-23] MEDS: HYDROCORTISONE 1% 30 GM OINTMENT TP SCH (08:46)
[2019-09-23] MEDS ORDERED: BUPR300T53 PO (11:01)
[2019-09-23] MEDS ORDERED: GABA-1181 PO (11:01)
[2019-09-23 12:04] LABS: GLUCOMETER DEV NAME(LOC) 3E.I 2; GLUCOSE,POINT OF CARE 81 MG/DL (70-110)
[2019-09-23 16:28] VITALS: BP 126/81
[2019-09-23] MEDS ORDERED: HALOPERIDOL LACTATE 5 MG/ML VIAL ONE (17:17)
[2019-09-23] MEDS ORDERED: DiphenhydrAMINE HCL 50 MG/ML VIAL ONE (17:17)
[2019-09-23] MEDS ORDERED: LORazepam 2 MG/ML VIAL ONE (17:17)
[2019-09-23] MEDS: LORazepam 2 MG/ML VIAL IM ONE ×2 (17:25→17:57)
[2019-09-23] MEDS: HALOPERIDOL LACTATE 5 MG/ML VIAL IM ONE ×2 (17:25→17:59)
[2019-09-23] MEDS: DiphenhydrAMINE HCL 50 MG/ML VIAL IM ONE ×2 (17:25→17:57)
== END 2019-09-23 17:45 | DRG 885 ==
LOC: EMS 14:19 → 3EI 19:45
PROVIDERS: ADMIT Psychiatry & Neurology Psychiatry; ATTEND Psychiatry & Neurology Psychiatry
DX: F25.1 Schizoaffective disorder, depressive type (principal); N17.9 Acute kidney failure, unspecified; B19.20 Unspecified viral hepatitis C without hepatic coma; R45.851 Suicidal ideations; E11.9 Type 2 diabetes mellitus without complications; F11.90 Opioid use, unspecified, uncomplicated; F15.90 Other stimulant use, unspecified, uncomplicated; F17.200 Nicotine dependence, unspecified, uncomplicated; F32.9 Major depressive disorder, single episode, unspecified; K21.9 Gastro-esophageal reflux disease without esophagitis; I10 Essential (primary) hypertension; J45.909 Unspecified asthma, uncomplicated; Z59.0 Homelessness; Z78.1 Physical restraint status; Z88.8 Allergy status to other drugs, medicaments and biological substances; F19.10 Other psychoactive substance abuse, uncomplicated; Z88.5 Allergy status to narcotic agent; Z88.6 Allergy status to analgesic agent; Z79.899 Other long term (current) drug therapy; Z79.84 Long term (current) use of oral hypoglycemic drugs; Z03.818 Encounter for observation for suspected exposure to other biological agents ruled out; Z71.6 Tobacco abuse counseling
CPT/HCPCS: 87081; 99291; G0480; J1200; J1630; J1815; J2060

== ENCOUNTER 2019-10-04 01:53 | Inpatient (IN) | payer MEDICAID ==
[~2019-10-04] VITALS: Ht 182.9 cm; Wt 106.0 kg
[~2019-10-04 01:53] MED LIST changes: -BUPR-93 PO; +BUPR300T53 PO; +GABA-1181 PO; -INSLAN SQ
[2019-10-04 02:25] LABS: BASOPHILS % (AUTO) 0.4 % (0.0-2.0); EOSINOPHILS % (AUTO) 0.6 % (1.0-6.0); HEMATOCRIT 39.4 % (41-53); HEMOGLOBIN 13.1 g/dL (13.5-17.5); LYMPHOCYTES # (AUTO) 2.7 K/uL (1.0-4.8); LYMPHOCYTES % (AUTO) 36.4 % (22.0-44.0); MEAN CORPUSCULAR HEMOGLOBIN 29.8 pg (26.0-34.0); MEAN CORPUSCULAR HGB CONC 33.2 G/dL (31.0-37.0); MEAN CORPUSCULAR VOLUME 90 fL (80-100); MONOCYTES # (AUTO) 0.7 K/uL (0.1-1.0); MONOCYTES % (AUTO) 9.8 % (2.0-9.0); NEUTROPHILS # (AUTO) 3.9 K/uL (1.8-7.7); NEUTROPHILS % (AUTO) 52.8 % (40.0-70.0); PLATELET COUNT (AUTO) 238 K/uL (150-450); RED BLOOD CELL COUNT(AUTO) 4.39 MIL/uL (4.50-5.90); RED CELL DISTRIBUTION WIDTH 13.6 % (11.5-14.5)
[2019-10-04 02:34] LABS: ANION GAP 12 mmol/L (8-16); CALCIUM, TOTAL 8.8 mg/dL (8.8-10.5); CARBON DIOXIDE 23 mmol/L (22-29); CHLORIDE 102 mmol/L (98-107); GLOMERULAR FILTR. RATE CALC 53 mL/min (>60); GLUCOSE,RANDOM 112 mg/dL (70-110); POTASSIUM 3.6 mmol/L (3.5-5.1); SODIUM SERUM 137 mmol/L (136-145); UREA NITROGEN, BLOOD 17 mg/dL (7-18)
[2019-10-04 02:36] LABS: GLUCOSE,POINT OF CARE 106 MG/DL (70-110)
[2019-10-04 02:40] LABS: ALANINE AMINOTRANSFERASE 57 U/L (12-78); ALBUMIN 3.5 g/dL (3.4-5.0); ALKALINE PHOSPHATASE 96 U/L (46-116); ASPARTATE AMINOTRANSFERASE 36 U/L (15-37); BILIRUBIN,TOTAL 0.9 mg/dL (0.1-1.0); TOTAL PROTEIN, SERUM 7.3 g/dL (6.4-8.2)
[2019-10-04 03:25] LABS: AMPHET/METH SCREEN,URINE POSITIVE (NEGATIVE); BARBITURATE SCREEN, URINE NEGATIVE (NEGATIVE); BENZODIAZEPINES SCREEN,URINE POSITIVE (NEGATIVE); CANNABINOID SCREEN,URINE NEGATIVE (NEGATIVE); COCAINE SCREEN,URINE NEGATIVE (NEGATIVE); METHADONE SCREEN, URINE NEGATIVE (NEGATIVE); OPIATE SCREEN,URINE POSITIVE (NEGATIVE); PHENCYCLIDINE SCREEN,URINE NEGATIVE (NEGATIVE)
[2019-10-04 03:43] LABS: CREATINE KINASE, TOTAL ONLY 137 U/L (39-308)
[2019-10-04] MEDS ORDERED: LORazepam 2 MG TABLET PO PRN (04:00)
[2019-10-04] MEDS ORDERED: ZOLPIDEM TARTRATE 10 MG TABLET PO PRN (04:00)
[2019-10-04] MEDS ORDERED: HALOPERIDOL 5 MG TABLET PO PRN (04:00)
[2019-10-04 14:18] LABS: GLUCOMETER DEV NAME(LOC) BV2S.; GLUCOSE,POINT OF CARE 116 MG/DL (70-110)
[2019-10-04 14:54] VITALS: BP 112/79
[2019-10-04 16:17] VITALS: BP 132/88
[2019-10-04] MEDS ORDERED: LOPERAMIDE HCL 2 MG CAPSULE PO PRN (16:30)
[2019-10-04] MEDS ORDERED: ALBUTEROL SULFATE HFA 90 MCG/PUFF 8 GM INHALER IH PRN (16:30)
[2019-10-04] MEDS ORDERED: MAGNESIUM HYDROXIDE SUSPENSION 30 ML UDCUP PO PRN (16:30)
[2019-10-04] MEDS ORDERED: NICOTINE 14 MG/24 HOUR PATCH TD PRN (16:30)
[2019-10-04] MEDS ORDERED: PETROLATUM,WHITE 28 GM JELLY TP PRN (16:30)
[2019-10-04] MEDS ORDERED: GuaiFENesin/D-METHORPHAN [SUGAR-FREE] 200-20MG/10 ML SYRUP UDCUP PO PRN (16:30)
[2019-10-04] MEDS ORDERED: ONDANSETRON HCL 4 MG TABLET PO PRN (16:30)
[2019-10-04] MEDS ORDERED: CloNIDine HCL 0.1 MG TABLET PO PRN (16:30)
[2019-10-04] MEDS ORDERED: MAG HYDROX/AL HYDROX/SIMETH ES 30 ML SUSPENSION UDCUP PO PRN (16:30)
[2019-10-04] MEDS ORDERED: DOCUSATE SODIUM 100 MG CAPSULE PO PRN (16:30)
[2019-10-04] MEDS: MetFORMIN HCL 500 MG TABLET PO SCH (16:47)
[2019-10-04] MEDS: GABAPENTIN 300 MG CAPSULE PO SCH (17:39)
[2019-10-05] MEDS ORDERED: GLUCAGON,HUMAN RECOMBINANT 1 MG VIAL IM PRN (00:45)
[2019-10-05 04:13] VITALS: BP 127/75
[2019-10-05 06:23] LABS: GLUCOMETER DEV NAME(LOC) BV2S.; GLUCOSE,POINT OF CARE 166 MG/DL (70-110)
[2019-10-05] MEDS: MetFORMIN HCL 500 MG TABLET PO SCH ×2 (07:13→16:52)
[2019-10-05] MEDS: INSULIN LISPRO 100 UNITS/ML SQ PRN ×2 (07:17→21:25)
[2019-10-05 09:24] VITALS: BP 110/60
[2019-10-05] MEDS: ARIPiprazole 10 MG TABLET PO SCH (09:35)
[2019-10-05] MEDS: BuPROPion HCL XL 150 MG ER TABLET PO SCH (09:35)
[2019-10-05] MEDS: GABAPENTIN 300 MG CAPSULE PO SCH ×3 (09:36→16:52)
[2019-10-05 11:13] LABS: GLUCOMETER DEV NAME(LOC) BV2S.; GLUCOSE,POINT OF CARE 132 MG/DL (70-110)
[2019-10-05 16:10] VITALS: BP 131/78
[2019-10-05 21:29] LABS: GLUCOMETER DEV NAME(LOC) BV2S.; GLUCOSE,POINT OF CARE 198 MG/DL (70-110)
[2019-10-06 05:10] VITALS: BP 125/75
[2019-10-06 05:23] LABS: GLUCOMETER DEV NAME(LOC) BV2S.; GLUCOSE,POINT OF CARE 134 MG/DL (70-110)
[2019-10-06] MEDS: MetFORMIN HCL 500 MG TABLET PO SCH ×2 (06:32→16:38)
[2019-10-06 08:33] VITALS: BP 121/72
[2019-10-06] MEDS: GABAPENTIN 300 MG CAPSULE PO SCH ×3 (08:51→16:38)
[2019-10-06] MEDS: ARIPiprazole 10 MG TABLET PO SCH (08:51)
[2019-10-06] MEDS: BuPROPion HCL XL 150 MG ER TABLET PO SCH (08:51)
[2019-10-06 11:02] LABS: GLUCOMETER DEV NAME(LOC) BV2S.; GLUCOSE,POINT OF CARE 123 MG/DL (70-110)
[2019-10-06 17:05] LABS: GLUCOMETER DEV NAME(LOC) BV2S.; GLUCOSE,POINT OF CARE 135 MG/DL (70-110)
[2019-10-06 17:28] VITALS: BP 108/72
[2019-10-07 00:46] VITALS: BP 120/76
[2019-10-07 05:22] LABS: GLUCOMETER DEV NAME(LOC) BV2S.; GLUCOSE,POINT OF CARE 132 MG/DL (70-110)
[2019-10-07] MEDS: MetFORMIN HCL 500 MG TABLET PO SCH ×2 (06:35→16:33)
[2019-10-07 08:12] LABS: CHOL/HDL RATIO 3.1 (4.2-7.3)
[2019-10-07] MEDS: BuPROPion HCL XL 150 MG ER TABLET PO SCH (09:16)
[2019-10-07] MEDS: ARIPiprazole 10 MG TABLET PO SCH (09:16)
[2019-10-07] MEDS: GABAPENTIN 300 MG CAPSULE PO SCH ×3 (09:16→16:33)
[2019-10-07 09:20] VITALS: BP 128/76
[2019-10-07 16:03] VITALS: BP 112/59
[2019-10-07 16:54] LABS: GLUCOMETER DEV NAME(LOC) BV2S.; GLUCOSE,POINT OF CARE 149 MG/DL (70-110)
[2019-10-07] MEDS: INSULIN LISPRO 100 UNITS/ML SQ PRN ×2 (17:11→20:14)
[2019-10-07] MEDS: TraMADol HCL 50 MG TABLET PO PRN (20:57)
[2019-10-07 21:29] LABS: GLUCOMETER DEV NAME(LOC) BV2S.; GLUCOSE,POINT OF CARE 254 MG/DL (70-110)
[2019-10-08] VITALS: BP 120/78
[2019-10-08 05:51] VITALS: BP 110/70
[2019-10-08] MEDS: MetFORMIN HCL 500 MG TABLET PO SCH ×2 (05:53→16:32)
[2019-10-08] MEDS: TraMADol HCL 50 MG TABLET PO PRN (05:53)
[2019-10-08] MEDS: INSULIN LISPRO 100 UNITS/ML SQ PRN ×4 (05:55→20:19)
[2019-10-08 06:01] LABS: GLUCOMETER DEV NAME(LOC) BV2S.; GLUCOSE,POINT OF CARE 165 MG/DL (70-110)
[2019-10-08 08:27] VITALS: BP 108/60
[2019-10-08] MEDS: BuPROPion HCL XL 150 MG ER TABLET PO SCH (08:50)
[2019-10-08] MEDS: ARIPiprazole 10 MG TABLET PO SCH (08:50)
[2019-10-08] MEDS: GABAPENTIN 300 MG CAPSULE PO SCH ×3 (08:50→16:32)
[2019-10-08 11:08] LABS: GLUCOMETER DEV NAME(LOC) BV2S.; GLUCOSE,POINT OF CARE 187 MG/DL (70-110)
[2019-10-08 16:34] VITALS: BP 113/65
[2019-10-08 16:54] LABS: GLUCOMETER DEV NAME(LOC) BV2X.; GLUCOSE,POINT OF CARE 149 MG/DL (70-110)
[2019-10-08 20:25] LABS: GLUCOMETER DEV NAME(LOC) BV2S.; GLUCOSE,POINT OF CARE 221 MG/DL (70-110)
[2019-10-09 01:38] VITALS: BP 121/77
[2019-10-09] MEDS: TraMADol HCL 50 MG TABLET PO PRN ×3 (03:21→21:39)
[2019-10-09] MEDS: MetFORMIN HCL 500 MG TABLET PO SCH ×2 (06:06→16:47)
[2019-10-09 06:16] LABS: GLUCOMETER DEV NAME(LOC) BV2S.; GLUCOSE,POINT OF CARE 130 MG/DL (70-110)
[2019-10-09] MEDS: BuPROPion HCL XL 150 MG ER TABLET PO SCH (09:06)
[2019-10-09] MEDS: GABAPENTIN 300 MG CAPSULE PO SCH ×3 (09:06→16:47)
[2019-10-09] MEDS: ARIPiprazole 10 MG TABLET PO SCH (09:07)
[2019-10-09 09:39] VITALS: BP 110/70
[2019-10-09] MEDS: INSULIN LISPRO 100 UNITS/ML SQ PRN ×3 (10:59→20:34)
[2019-10-09 11:14] LABS: GLUCOMETER DEV NAME(LOC) BV2S.; GLUCOSE,POINT OF CARE 245 MG/DL (70-110)
[2019-10-09 12:48] VITALS: BP 110/86
[2019-10-09 16:48] LABS: GLUCOMETER DEV NAME(LOC) BV2S.; GLUCOSE,POINT OF CARE 161 MG/DL (70-110)
[2019-10-09 21:39] VITALS: BP 112/78
[2019-10-09 21:42] LABS: GLUCOMETER DEV NAME(LOC) BV2S.; GLUCOSE,POINT OF CARE 183 MG/DL (70-110)
[2019-10-10 00:39] VITALS: BP 131/78
[2019-10-10 05:45] VITALS: BP 121/89
[2019-10-10] MEDS: TraMADol HCL 50 MG TABLET PO PRN ×2 (05:50→21:16)
[2019-10-10] MEDS: MetFORMIN HCL 500 MG TABLET PO SCH ×2 (06:33→17:03)
[2019-10-10 06:43] LABS: GLUCOMETER DEV NAME(LOC) BV2S.; GLUCOSE,POINT OF CARE 129 MG/DL (70-110)
[2019-10-10 08:11] LABS: ANION GAP 8 mmol/L (8-16); CALCIUM, TOTAL 9.1 mg/dL (8.8-10.5); CARBON DIOXIDE 25 mmol/L (22-29); CHLORIDE 100 mmol/L (98-107); GLOMERULAR FILTR. RATE CALC > 60 mL/min (>60); GLUCOSE,RANDOM 131 mg/dL (70-110); POTASSIUM 4.9 mmol/L (3.5-5.1); SODIUM SERUM 133 mmol/L (136-145); UREA NITROGEN, BLOOD 20 mg/dL (7-18)
[2019-10-10] MEDS: BuPROPion HCL XL 150 MG ER TABLET PO SCH (10:01)
[2019-10-10] MEDS: GABAPENTIN 300 MG CAPSULE PO SCH ×3 (10:01→17:00)
[2019-10-10] MEDS: ARIPiprazole 10 MG TABLET PO SCH (10:01)
[2019-10-10 10:47] LABS: GLUCOMETER DEV NAME(LOC) BV2S.; GLUCOSE,POINT OF CARE 290 MG/DL (70-110)
[2019-10-10] MEDS: INSULIN LISPRO 100 UNITS/ML SQ PRN ×2 (10:53→17:06)
[2019-10-10 10:58] VITALS: BP 114/76
[2019-10-10 17:33] LABS: GLUCOMETER DEV NAME(LOC) BV2S.; GLUCOSE,POINT OF CARE 154 MG/DL (70-110)
[2019-10-10 21:16] VITALS: BP 113/72
[2019-10-11 06:21] LABS: GLUCOMETER DEV NAME(LOC) BV2S.; GLUCOSE,POINT OF CARE 117 MG/DL (70-110)
[2019-10-11] MEDS: MetFORMIN HCL 500 MG TABLET PO SCH ×2 (06:32→16:53)
[2019-10-11 06:57] VITALS: BP 112/85
[2019-10-11] MEDS: TraMADol HCL 50 MG TABLET PO PRN ×2 (06:59→16:38)
[2019-10-11] MEDS: BuPROPion HCL XL 150 MG ER TABLET PO SCH (08:48)
[2019-10-11] MEDS: ARIPiprazole 10 MG TABLET PO SCH (08:48)
[2019-10-11] MEDS: GABAPENTIN 300 MG CAPSULE PO SCH ×3 (08:48→16:53)
[2019-10-11 09:39] VITALS: BP 105/75
[2019-10-11] MEDS: INSULIN LISPRO 100 UNITS/ML SQ PRN ×3 (11:49→20:54)
[2019-10-11 11:52] LABS: GLUCOMETER DEV NAME(LOC) BV2S.; GLUCOSE,POINT OF CARE 200 MG/DL (70-110)
[2019-10-11 16:38] VITALS: BP 112/72
[2019-10-11 17:57] VITALS: BP 107/75
[2019-10-11 18:03] LABS: GLUCOMETER DEV NAME(LOC) BV2S.; GLUCOSE,POINT OF CARE 141 MG/DL (70-110)
[2019-10-11 21:12] LABS: GLUCOMETER DEV NAME(LOC) BV2S.; GLUCOSE,POINT OF CARE 191 MG/DL (70-110)
[2019-10-12] VITALS: BP 126/78
[2019-10-12] MEDS: TraMADol HCL 50 MG TABLET PO PRN ×3 (01:11→20:17)
[2019-10-12 06:30] LABS: GLUCOMETER DEV NAME(LOC) BV2S.; GLUCOSE,POINT OF CARE 132 MG/DL (70-110)
[2019-10-12] MEDS: MetFORMIN HCL 500 MG TABLET PO SCH ×2 (06:33→16:39)
[2019-10-12] MEDS: BuPROPion HCL XL 150 MG ER TABLET PO SCH (07:58)
[2019-10-12] MEDS: GABAPENTIN 300 MG CAPSULE PO SCH ×3 (07:58→16:39)
[2019-10-12] MEDS: ARIPiprazole 10 MG TABLET PO SCH (07:58)
[2019-10-12 08:46] VITALS: BP 115/73
[2019-10-12 11:03] LABS: GLUCOMETER DEV NAME(LOC) BV2S.; GLUCOSE,POINT OF CARE 170 MG/DL (70-110)
[2019-10-12] MEDS: INSULIN LISPRO 100 UNITS/ML SQ PRN ×3 (11:18→20:47)
[2019-10-12 11:21] VITALS: BP 138/92
[2019-10-12 16:10] VITALS: BP 125/77
[2019-10-12 16:38] LABS: GLUCOMETER DEV NAME(LOC) BV2S.; GLUCOSE,POINT OF CARE 144 MG/DL (70-110)
[2019-10-12 20:45] LABS: GLUCOMETER DEV NAME(LOC) BV2X.; GLUCOSE,POINT OF CARE 195 MG/DL (70-110)
[2019-10-13 04:55] VITALS: BP 130/78
[2019-10-13] MEDS: TraMADol HCL 50 MG TABLET PO PRN ×2 (05:59→15:27)
[2019-10-13] MEDS: INSULIN LISPRO 100 UNITS/ML SQ PRN ×2 (06:36→12:03)
[2019-10-13] MEDS: MetFORMIN HCL 500 MG TABLET PO SCH ×2 (06:50→15:28)
[2019-10-13 06:52] LABS: GLUCOMETER DEV NAME(LOC) BV2X.; GLUCOSE,POINT OF CARE 166 MG/DL (70-110)
[2019-10-13 08:12] LABS: ANION GAP 7 mmol/L (8-16); CALCIUM, TOTAL 8.9 mg/dL (8.8-10.5); CARBON DIOXIDE 26 mmol/L (22-29); CHLORIDE 102 mmol/L (98-107); CREATININE 1.12 mg/dL (0.60-1.30); GLOMERULAR FILTR. RATE CALC > 60 mL/min (>60); GLUCOSE,RANDOM 144 mg/dL (70-110); POTASSIUM 4.5 mmol/L (3.5-5.1); SODIUM SERUM 135 mmol/L (136-145); UREA NITROGEN, BLOOD 19 mg/dL (7-18)
[2019-10-13 08:20] VITALS: BP 126/56
[2019-10-13] MEDS: ARIPiprazole 10 MG TABLET PO SCH (08:27)
[2019-10-13] MEDS: BuPROPion HCL XL 150 MG ER TABLET PO SCH (08:27)
[2019-10-13] MEDS: GABAPENTIN 300 MG CAPSULE PO SCH ×3 (08:27→15:27)
[2019-10-13 11:20] LABS: GLUCOMETER DEV NAME(LOC) BV2S.; GLUCOSE,POINT OF CARE 170 MG/DL (70-110)
[2019-10-13 16:08] VITALS: BP 132/85
[2019-10-13] MEDS ORDERED: BUPR75 PO (16:17)
[2019-10-13] MEDS ORDERED: GABA-1181 PO (16:17)
[2019-10-13] MEDS ORDERED: BUPR-93 PO (16:18)
[2019-10-13 16:20] LABS: GLUCOMETER DEV NAME(LOC) BV2S.; GLUCOSE,POINT OF CARE 126 MG/DL (70-110)
== END 2019-10-13 18:50 | disposition home or self-care (01) | DRG 750 ==
LOC: EMS 01:53 → B2S 03:51
PROVIDERS: ADMIT Psychiatry & Neurology Psychiatry; ATTEND Psychiatry & Neurology Psychiatry
DX: F25.9 Schizoaffective disorder, unspecified (principal); R45.851 Suicidal ideations; E87.1 Hypo-osmolality and hyponatremia; E11.9 Type 2 diabetes mellitus without complications; I10 Essential (primary) hypertension; J45.909 Unspecified asthma, uncomplicated; N17.9 Acute kidney failure, unspecified; B19.20 Unspecified viral hepatitis C without hepatic coma; F11.90 Opioid use, unspecified, uncomplicated; Z88.8 Allergy status to other drugs, medicaments and biological substances
CPT/HCPCS: 87081; G0480

== ENCOUNTER 2020-07-28 07:36 | Inpatient (IN) | payer MEDICAID ==
[~2020-07-28] VITALS: Ht 175.3 cm; Wt 107.0 kg
[~2020-07-28 07:36] MED LIST changes: +ARIP10TA38 PO; -ARIP10TA8 PO; +BUPR-93 PO; -BUPR300T53 PO
[2020-07-28] MEDS ORDERED: INSLAN SQ (08:13)
[2020-07-28 08:24] LABS: BASOPHILS % (AUTO) 0.5 % (0.0-2.0); EOSINOPHILS % (AUTO) 0.1 % (1.0-6.0); HEMATOCRIT 46.8 % (41-53); HEMOGLOBIN 15.7 g/dL (13.5-17.5); LYMPHOCYTES # (AUTO) 2.7 K/uL (1.0-4.8); LYMPHOCYTES % (AUTO) 29.7 % (22.0-44.0); MEAN CORPUSCULAR HEMOGLOBIN 30.3 pg (26.0-34.0); MEAN CORPUSCULAR HGB CONC 33.5 G/dL (31.0-37.0); MEAN CORPUSCULAR VOLUME 91 fL (80-100); MONOCYTES # (AUTO) 0.6 K/uL (0.1-1.0); MONOCYTES % (AUTO) 7.2 % (2.0-9.0); NEUTROPHILS # (AUTO) 5.6 K/uL (1.8-7.7); NEUTROPHILS % (AUTO) 62.5 % (40.0-70.0); PLATELET COUNT (AUTO) 234 K/uL (150-450); RED BLOOD CELL COUNT(AUTO) 5.16 MIL/uL (4.50-5.90); RED CELL DISTRIBUTION WIDTH 14.3 % (11.5-14.5)
[2020-07-28 08:33] LABS: CALCIUM, TOTAL 9.6 mg/dL (8.8-10.5); CARBON DIOXIDE 26 mmol/L (22-29); CHLORIDE 105 mmol/L (98-107); CREATININE 1.38 mg/dL (0.60-1.30); GLOMERULAR FILTR. RATE CALC 53 mL/min (>60); GLUCOSE,RANDOM 102 mg/dL (70-110); UREA NITROGEN, BLOOD 24 mg/dL (7-18)
[2020-07-28 08:38] LABS: ANION GAP 11 mmol/L (8-16); POTASSIUM 4.1 mmol/L (3.5-5.1); SODIUM SERUM 142 mmol/L (136-145)
[2020-07-28 08:39] LABS: ALANINE AMINOTRANSFERASE 96 U/L (12-78); ALBUMIN 4.1 g/dL (3.4-5.0); ALKALINE PHOSPHATASE 112 U/L (46-116); ASPARTATE AMINOTRANSFERASE 55 U/L (15-37); TOTAL PROTEIN, SERUM 8.7 g/dL (6.4-8.2)
[2020-07-28 09:19] LABS: AMPHET/METH SCREEN,URINE POSITIVE (NEGATIVE); BARBITURATE SCREEN, URINE NEGATIVE (NEGATIVE); BENZODIAZEPINES SCREEN,URINE NEGATIVE (NEGATIVE); CANNABINOID SCREEN,URINE NEGATIVE (NEGATIVE); COCAINE SCREEN,URINE NEGATIVE (NEGATIVE); METHADONE SCREEN, URINE NEGATIVE (NEGATIVE); OPIATE SCREEN,URINE NEGATIVE (NEGATIVE); PHENCYCLIDINE SCREEN,URINE NEGATIVE (NEGATIVE)
[2020-07-28 09:43] LABS: COVID AG,FIA SOURCE NASOPHARYNGEAL
[2020-07-28] MEDS ORDERED: LORazepam 2 MG TABLET PO ONE (09:45)
[2020-07-28] MEDS ORDERED: ZOLPIDEM TARTRATE 10 MG TABLET PO PRN (10:15)
[2020-07-28] MEDS ORDERED: HALOPERIDOL 5 MG TABLET PO PRN (10:15)
[2020-07-28] MEDS: ARIPiprazole 10 MG TABLET PO SCH (11:08)
[2020-07-28 14:41] VITALS: BP 164/90
[2020-07-28] MEDS ORDERED: INSULIN LISPRO 100 UNITS/ML SQ PRN (15:00)
[2020-07-28] MEDS ORDERED: GLUCAGON,HUMAN RECOMBINANT 1 MG VIAL IM PRN (15:00)
[2020-07-28 15:07] LABS: GLUCOMETER DEV NAME(LOC) BV2S.; GLUCOSE,POINT OF CARE 148 MG/DL (70-110)
[2020-07-28 16:20] VITALS: BP 140/82
[2020-07-28] MEDS: MetFORMIN HCL 500 MG TABLET PO SCH (16:44)
[2020-07-28] MEDS: INSULIN GLARGINE,HUM.REC.ANLOG 100 UNITS/ML SQ SCH (16:49)
[2020-07-28 16:55] LABS: GLUCOMETER DEV NAME(LOC) BV2S.; GLUCOSE,POINT OF CARE 116 MG/DL (70-110)
[2020-07-28 20:50] LABS: GLUCOMETER DEV NAME(LOC) BV2S.; GLUCOSE,POINT OF CARE 99 MG/DL (70-110)
[2020-07-28] MEDS: LORazepam 2 MG TABLET PO PRN (21:17)
[2020-07-28] MEDS ORDERED: CloNIDine HCL 0.1 MG TABLET PO PRN (21:30)
[2020-07-29 00:26] VITALS: BP 160/106
[2020-07-29 01:00] VITALS: BP 131/82
[2020-07-29 06:28] LABS: GLUCOMETER DEV NAME(LOC) BV2S.; GLUCOSE,POINT OF CARE 73 MG/DL (70-110)
[2020-07-29] MEDS ORDERED: ONDANSETRON HCL 4 MG TABLET PO PRN (07:00)
[2020-07-29] MEDS ORDERED: CloNIDine HCL 0.1 MG TABLET PO PRN (07:00)
[2020-07-29] MEDS ORDERED: PETROLATUM,WHITE 28 GM JELLY TP PRN (07:00)
[2020-07-29] MEDS ORDERED: ALBUTEROL SULFATE HFA 90 MCG/PUFF 8 GM INHALER IH PRN (07:00)
[2020-07-29] MEDS ORDERED: LOPERAMIDE HCL 2 MG CAPSULE PO PRN (07:00)
[2020-07-29] MEDS ORDERED: MAGNESIUM HYDROXIDE SUSPENSION 30 ML UDCUP PO PRN (07:00)
[2020-07-29] MEDS ORDERED: GuaiFENesin/D-METHORPHAN [SUGAR-FREE] 200-20MG/10 ML SYRUP UDCUP PO PRN (07:00)
[2020-07-29] MEDS ORDERED: MAG HYDROX/AL HYDROX/SIMETH ES 30 ML SUSPENSION UDCUP PO PRN (07:00)
[2020-07-29] MEDS ORDERED: DOCUSATE SODIUM 100 MG CAPSULE PO PRN (07:00)
[2020-07-29] MEDS ORDERED: NICOTINE 14 MG/24 HOUR PATCH TD PRN (07:00)
[2020-07-29] MEDS: LORazepam 2 MG TABLET PO PRN ×2 (07:01→14:54)
[2020-07-29] MEDS: MetFORMIN HCL 500 MG TABLET PO SCH ×2 (07:01→16:10)
[2020-07-29] MEDS: BuPROPion HCL XL 150 MG ER TABLET PO SCH (08:39)
[2020-07-29] MEDS: ARIPiprazole 10 MG TABLET PO SCH (08:39)
[2020-07-29] MEDS: INSULIN GLARGINE,HUM.REC.ANLOG 100 UNITS/ML SQ SCH ×2 (08:44→17:01)
[2020-07-29 08:47] VITALS: BP 122/81
[2020-07-29 08:50] LABS: GLUCOMETER DEV NAME(LOC) BV2S.; GLUCOSE,POINT OF CARE 147 MG/DL (70-110)
[2020-07-29 11:19] LABS: GLUCOMETER DEV NAME(LOC) BV2S.; GLUCOSE,POINT OF CARE 119 MG/DL (70-110)
[2020-07-29] MEDS: OLANZapine 10 MG TABLET PO SCH (16:09)
[2020-07-29 16:23] VITALS: BP 123/97
[2020-07-29 16:27] LABS: GLUCOMETER DEV NAME(LOC) BV2S.; GLUCOSE,POINT OF CARE 156 MG/DL (70-110)
[2020-07-29 19:46] LABS: GLUCOMETER DEV NAME(LOC) BV2S.; GLUCOSE,POINT OF CARE 100 MG/DL (70-110)
[2020-07-30] MEDS: LORazepam 2 MG TABLET PO PRN ×2 (00:39→09:31)
[2020-07-30 01:34] VITALS: BP 138/92
[2020-07-30 06:34] LABS: GLUCOMETER DEV NAME(LOC) BV2S.; GLUCOSE,POINT OF CARE 93 MG/DL (70-110)
[2020-07-30] MEDS: MetFORMIN HCL 500 MG TABLET PO SCH ×2 (06:35→16:49)
[2020-07-30 08:17] VITALS: BP 120/71
[2020-07-30] MEDS: BuPROPion HCL XL 150 MG ER TABLET PO SCH (08:24)
[2020-07-30] MEDS: OLANZapine 10 MG TABLET PO SCH ×2 (08:24→16:49)
[2020-07-30] MEDS: INSULIN GLARGINE,HUM.REC.ANLOG 100 UNITS/ML SQ SCH ×2 (08:29→16:56)
[2020-07-30 13:32] LABS: GLUCOMETER DEV NAME(LOC) BV2S.; GLUCOSE,POINT OF CARE 150 MG/DL (70-110)
[2020-07-30 16:12] VITALS: BP 129/74
[2020-07-30 16:50] LABS: GLUCOMETER DEV NAME(LOC) BV2S.; GLUCOSE,POINT OF CARE 129 MG/DL (70-110)
[2020-07-30 21:04] LABS: GLUCOMETER DEV NAME(LOC) BV2S.; GLUCOSE,POINT OF CARE 89 MG/DL (70-110)
[2020-07-31 00:43] VITALS: BP 119/72
[2020-07-31] MEDS: LORazepam 2 MG TABLET PO PRN ×2 (00:47→11:44)
[2020-07-31 06:54] LABS: GLUCOMETER DEV NAME(LOC) BV2S.; GLUCOSE,POINT OF CARE 98 MG/DL (70-110)
[2020-07-31] MEDS: MetFORMIN HCL 500 MG TABLET PO SCH ×2 (06:56→16:25)
[2020-07-31 08:09] VITALS: BP 126/85
[2020-07-31] MEDS: OLANZapine 10 MG TABLET PO SCH ×2 (08:27→16:25)
[2020-07-31] MEDS: BuPROPion HCL XL 150 MG ER TABLET PO SCH (08:27)
[2020-07-31 08:28] LABS: GLUCOMETER DEV NAME(LOC) BV2S.; GLUCOSE,POINT OF CARE 135 MG/DL (70-110)
[2020-07-31] MEDS: INSULIN GLARGINE,HUM.REC.ANLOG 100 UNITS/ML SQ SCH ×2 (08:29→16:18)
[2020-07-31 10:54] LABS: GLUCOMETER DEV NAME(LOC) BV2S.; GLUCOSE,POINT OF CARE 69 MG/DL (70-110)
[2020-07-31 11:16] LABS: GLUCOMETER DEV NAME(LOC) BV2S.; GLUCOSE,POINT OF CARE 108 MG/DL (70-110)
[2020-07-31 16:06] LABS: GLUCOMETER DEV NAME(LOC) BV2S.; GLUCOSE,POINT OF CARE 115 MG/DL (70-110)
[2020-07-31 16:18] VITALS: BP 135/66
[2020-07-31 20:12] LABS: GLUCOMETER DEV NAME(LOC) BV2S.; GLUCOSE,POINT OF CARE 109 MG/DL (70-110)
[2020-08-01] VITALS: BP 112/72
[2020-08-01] MEDS: LORazepam 2 MG TABLET PO PRN ×3 (00:09→11:56)
[2020-08-01] MEDS: MetFORMIN HCL 500 MG TABLET PO SCH (06:23)
[2020-08-01 06:39] LABS: GLUCOMETER DEV NAME(LOC) BV2S.; GLUCOSE,POINT OF CARE 88 MG/DL (70-110)
[2020-08-01 08:23] VITALS: BP 135/78
[2020-08-01] MEDS: BuPROPion HCL XL 150 MG ER TABLET PO SCH (08:34)
[2020-08-01] MEDS: OLANZapine 10 MG TABLET PO SCH (08:34)
[2020-08-01] MEDS: INSULIN GLARGINE,HUM.REC.ANLOG 100 UNITS/ML SQ SCH (09:24)
[2020-08-01 09:30] LABS: GLUCOMETER DEV NAME(LOC) BV2S.; GLUCOSE,POINT OF CARE 78 MG/DL (70-110)
[2020-08-01 11:48] LABS: GLUCOMETER DEV NAME(LOC) BV2S.; GLUCOSE,POINT OF CARE 97 MG/DL (70-110)
[2020-08-01] MEDS ORDERED: OLAN10TA74 PO (14:25)
== END 2020-08-01 16:30 | disposition home or self-care (01) | DRG 885 ==
LOC: EMS 07:41 → B2S 12:37
PROVIDERS: ADMIT Psychiatry & Neurology Psychiatry; ATTEND Psychiatry & Neurology Psychiatry
DX: F25.1 Schizoaffective disorder, depressive type (principal); N17.9 Acute kidney failure, unspecified; B18.2 Chronic viral hepatitis C; R45.851 Suicidal ideations; E11.9 Type 2 diabetes mellitus without complications; Z20.822 Contact with and (suspected) exposure to COVID-19; E66.9 Obesity, unspecified; R79.89 Other specified abnormal findings of blood chemistry; F11.10 Opioid abuse, uncomplicated; I10 Essential (primary) hypertension; J45.909 Unspecified asthma, uncomplicated; F17.210 Nicotine dependence, cigarettes, uncomplicated; F32.9 Major depressive disorder, single episode, unspecified; Z88.8 Allergy status to other drugs, medicaments and biological substances; Z79.899 Other long term (current) drug therapy; Z79.4 Long term (current) use of insulin; Z90.49 Acquired absence of other specified parts of digestive tract; Z68.34 Body mass index [BMI] 34.0-34.9, adult
CPT/HCPCS: 80053; 82962; 85025; 99285; G0480; J1815

== ENCOUNTER 2020-08-19 01:32 | Inpatient (IN) | payer MEDICAID ==
[~2020-08-19] VITALS: Ht 182.9 cm; Wt 122.0 kg
[~2020-08-19 01:32] MED LIST changes: -ARIP10TA38 PO; -GABA-1181 PO; +INSLAN SQ; +OLAN10TA74 PO
[2020-08-19 02:12] LABS: GLUCOMETER DEV NAME(LOC) ERT.5; GLUCOSE,POINT OF CARE 140 MG/DL (70-110)
[2020-08-19 03:22] LABS: BASOPHILS % (AUTO) 0.7 % (0.0-2.0); EOSINOPHILS % (AUTO) 1.4 % (1.0-6.0); HEMATOCRIT 38.8 % (41-53); HEMOGLOBIN 13.1 g/dL (13.5-17.5); LYMPHOCYTES # (AUTO) 2.1 K/uL (1.0-4.8); LYMPHOCYTES % (AUTO) 33.3 % (22.0-44.0); MEAN CORPUSCULAR HEMOGLOBIN 31.1 pg (26.0-34.0); MEAN CORPUSCULAR HGB CONC 33.8 G/dL (31.0-37.0); MEAN CORPUSCULAR VOLUME 92 fL (80-100); MONOCYTES # (AUTO) 0.6 K/uL (0.1-1.0); MONOCYTES % (AUTO) 8.7 % (2.0-9.0); NEUTROPHILS # (AUTO) 3.6 K/uL (1.8-7.7); NEUTROPHILS % (AUTO) 55.9 % (40.0-70.0); PLATELET COUNT (AUTO) 297 K/uL (150-450); RED BLOOD CELL COUNT(AUTO) 4.22 MIL/uL (4.50-5.90); RED CELL DISTRIBUTION WIDTH 14.5 % (11.5-14.5)
[2020-08-19 03:32] LABS: ANION GAP 10 mmol/L (8-16); CALCIUM, TOTAL 8.7 mg/dL (8.8-10.5); CARBON DIOXIDE 23 mmol/L (22-29); CHLORIDE 107 mmol/L (98-107); CREATININE 1.09 mg/dL (0.60-1.30); GLOMERULAR FILTR. RATE CALC > 60 mL/min (>60); GLUCOSE,RANDOM 124 mg/dL (70-110); POTASSIUM 3.8 mmol/L (3.5-5.1); SODIUM SERUM 140 mmol/L (136-145); UREA NITROGEN, BLOOD 20 mg/dL (7-18)
[2020-08-19 03:53] LABS: ALANINE AMINOTRANSFERASE 73 U/L (12-78); ALBUMIN 3.1 g/dL (3.4-5.0); ALKALINE PHOSPHATASE 108 U/L (46-116); ASPARTATE AMINOTRANSFERASE 50 U/L (15-37); BILIRUBIN,TOTAL 0.5 mg/dL (0.1-1.0); CREATINE KINASE, TOTAL ONLY 118 U/L (39-308); TOTAL PROTEIN, SERUM 6.8 g/dL (6.4-8.2)
[2020-08-19 04:13] LABS: PROTHROMBIN TIME 10.9 SEC (9.4-11.6)
[2020-08-19 04:19] LABS: B-TYPE NATRIURETIC PEPTIDE < 5 pg/mL (0-100)
[2020-08-19] MEDS ORDERED: 0.9% SODIUM CHLORIDE 10 ML SYRINGE IVP PRN (05:15)
[2020-08-19] MEDS ORDERED: ONDANSETRON HCL 4 MG/2 ML VIAL IVP PRN ×2 (05:15→07:45)
[2020-08-19] MEDS ORDERED: FUROSEMIDE 40 MG/4 ML VIAL IVP ONE (05:15)
[2020-08-19] MEDS ORDERED: ZOLPIDEM TARTRATE 5 MG TABLET PO PRN (07:45)
[2020-08-19] MEDS ORDERED: BISACODYL 10 MG RECTAL RECTAL SUPPOSITORY PR PRN (07:45)
[2020-08-19 07:56] LABS: APPEARANCE,URINE CLEAR (CLEAR); BILIRUBIN,URINE NEGATIVE (NEGATIVE); GLUCOSE, URINE (UA) NEGATIVE (NEGATIVE); KETONES,URINE NEGATIVE (NEGATIVE); LEUKOCYTE ESTERASE ,URINE NEGATIVE (NEGATIVE); NITRATE,URINE NEGATIVE (NEGATIVE); OCCULT BLOOD,URINE NEGATIVE (NEGATIVE); PH,URINE 5.5 (5.0-8.0); PROTEIN,URINE NEGATIVE (NEGATIVE)
[2020-08-19] MEDS: PANTOPRAZOLE SODIUM 40 MG DR TABLET PO SCH (08:06)
[2020-08-19] MEDS: DOCUSATE SODIUM 100 MG CAPSULE PO SCH ×2 (08:06→20:22)
[2020-08-19] MEDS: MetFORMIN HCL 500 MG TABLET PO SCH ×2 (08:06→17:54)
[2020-08-19] MEDS: VANCOMYCIN HCL 1.5 GM in DEXTROSE 5%-WATER 250 ML IV ONE ×2 (08:08→09:25)
[2020-08-19] MEDS: HEPARIN SODIUM,PORCINE 5,000 UNITS/ML VIAL SQ SCH ×3 (08:08→23:48)
[2020-08-19] MEDS: INSULIN GLARGINE,HUM.REC.ANLOG 100 UNITS/ML SQ SCH ×2 (08:09→20:24)
[2020-08-19 08:26] LABS: GLUCOMETER DEV NAME(LOC) ERT.5; GLUCOSE,POINT OF CARE 122 MG/DL (70-110)
[2020-08-19] MEDS: FUROSEMIDE 20 MG/2 ML VIAL IVP SCH ×2 (09:00→20:43)
[2020-08-19] MEDS ORDERED: SODIUM CHLORIDE 0.9% 1,000 ML ONE (11:26)
[2020-08-19 11:55] VITALS: BP 138/80
[2020-08-19] MEDS: MORPHINE SULFATE 2 MG/ML SYRINGE IVP PRN ×2 (11:58→20:46)
[2020-08-19 12:59] LABS: GLUCOMETER DEV NAME(LOC) 6S.1; GLUCOSE,POINT OF CARE 118 MG/DL (70-110)
[2020-08-19] MEDS ORDERED: DEXTROSE 50%-WATER 25 GM/50 ML SYRINGE IVP PRN (14:30)
[2020-08-19] MEDS: VANCOMYCIN HCL 750 MG in DEXTROSE 5%-WATER 250 ML IV SCH ×2 (15:44→23:48)
[2020-08-19] MEDS ORDERED: -PHARMACY VACCINE NOTE- MISC ONE (18:45)
[2020-08-19 19:02] LABS: GLUCOMETER DEV NAME(LOC) 6S.1; GLUCOSE,POINT OF CARE 130 MG/DL (70-110)
[2020-08-19 19:10] VITALS: BP 117/71
[2020-08-19 19:40] VITALS: BP 116/85
[2020-08-19 22:40] VITALS: BP 116/75
[2020-08-20 00:27] VITALS: BP 121/79
[2020-08-20 02:11] LABS: GLUCOMETER DEV NAME(LOC) 6S.1; GLUCOSE,POINT OF CARE 140 MG/DL (70-110)
[2020-08-20 03:35] VITALS: BP 120/71
[2020-08-20] MEDS: INSULIN LISPRO 100 UNITS/ML SQ PRN ×2 (05:51→14:03)
[2020-08-20 08:02] VITALS: BP 105/61
[2020-08-20] MEDS: VANCOMYCIN HCL 750 MG in DEXTROSE 5%-WATER 250 ML IV SCH ×2 (08:43→15:53)
[2020-08-20] MEDS: PANTOPRAZOLE SODIUM 40 MG DR TABLET PO SCH (08:43)
[2020-08-20] MEDS: MetFORMIN HCL 500 MG TABLET PO SCH ×2 (08:44→17:45)
[2020-08-20] MEDS: HEPARIN SODIUM,PORCINE 5,000 UNITS/ML VIAL SQ SCH ×2 (08:44→15:53)
[2020-08-20] MEDS: DOCUSATE SODIUM 100 MG CAPSULE PO SCH ×2 (08:44→21:09)
[2020-08-20] MEDS: FUROSEMIDE 20 MG/2 ML VIAL IVP SCH (08:44)
[2020-08-20] MEDS: MORPHINE SULFATE 2 MG/ML SYRINGE IVP PRN (09:18)
[2020-08-20] MEDS: INSULIN GLARGINE,HUM.REC.ANLOG 100 UNITS/ML SQ SCH ×2 (09:21→22:22)
[2020-08-20 09:35] LABS: GLUCOMETER DEV NAME(LOC) 6N.1; GLUCOSE,POINT OF CARE 95 MG/DL (70-110)
[2020-08-20 09:35] LABS: GLUCOMETER DEV NAME(LOC) 6N.1; GLUCOSE,POINT OF CARE 93 MG/DL (70-110)
[2020-08-20] MEDS ORDERED: BuPROPion HCL 75 MG TABLET PO SCH (11:30)
[2020-08-20 12:21] LABS: GLUCOMETER DEV NAME(LOC) 6S.1; GLUCOSE,POINT OF CARE 144 MG/DL (70-110)
[2020-08-20 15:24] VITALS: BP 117/64
[2020-08-20 17:56] LABS: GLUCOMETER DEV NAME(LOC) 6S.1; GLUCOSE,POINT OF CARE 75 MG/DL (70-110)
[2020-08-20 19:46] VITALS: BP 126/76
[2020-08-20] MEDS: OLANZapine 10 MG TABLET PO SCH (21:09)
[2020-08-20 23:29] LABS: GLUCOMETER DEV NAME(LOC) 6S.1; GLUCOSE,POINT OF CARE 147 MG/DL (70-110)
[2020-08-20 23:43] VITALS: BP 105/68
[2020-08-21] MEDS: MORPHINE SULFATE 2 MG/ML SYRINGE IVP PRN ×2 (00:35→20:36)
[2020-08-21] MEDS: FUROSEMIDE 20 MG/2 ML VIAL IVP SCH ×3 (00:37→20:31)
[2020-08-21] MEDS: VANCOMYCIN HCL 750 MG in DEXTROSE 5%-WATER 250 ML IV SCH ×2 (00:37→11:20)
[2020-08-21 05:13] VITALS: BP 107/68
[2020-08-21 07:46] VITALS: BP 100/62
[2020-08-21 08:18] LABS: GLUCOMETER DEV NAME(LOC) 6S.1; GLUCOSE,POINT OF CARE 84 MG/DL (70-110)
[2020-08-21] MEDS: MetFORMIN HCL 500 MG TABLET PO SCH ×2 (08:18→17:44)
[2020-08-21] MEDS: DOCUSATE SODIUM 100 MG CAPSULE PO SCH ×2 (08:18→20:31)
[2020-08-21] MEDS: BuPROPion HCL XL 150 MG ER TABLET PO SCH (08:18)
[2020-08-21] MEDS: OLANZapine 10 MG TABLET PO SCH ×2 (08:18→20:31)
[2020-08-21] MEDS: PANTOPRAZOLE SODIUM 40 MG DR TABLET PO SCH (08:18)
[2020-08-21] MEDS: HEPARIN SODIUM,PORCINE 5,000 UNITS/ML VIAL SQ SCH ×3 (08:19→15:20)
[2020-08-21] MEDS: INSULIN GLARGINE,HUM.REC.ANLOG 100 UNITS/ML SQ SCH ×2 (08:23→20:48)
[2020-08-21 10:58] LABS: EOSINOPHILS % (AUTO) 2.6 % (1.0-6.0); HEMATOCRIT 46.9 % (41-53); HEMOGLOBIN 15.7 g/dL (13.5-17.5); LYMPHOCYTES # (AUTO) 2.6 K/uL (1.0-4.8); LYMPHOCYTES % (AUTO) 45.3 % (22.0-44.0); MEAN CORPUSCULAR HEMOGLOBIN 31.1 pg (26.0-34.0); MEAN CORPUSCULAR HGB CONC 33.6 G/dL (31.0-37.0); MEAN CORPUSCULAR VOLUME 93 fL (80-100); MONOCYTES # (AUTO) 0.4 K/uL (0.1-1.0); MONOCYTES % (AUTO) 6.2 % (2.0-9.0); NEUTROPHILS # (AUTO) 2.6 K/uL (1.8-7.7); NEUTROPHILS % (AUTO) 44.9 % (40.0-70.0); PLATELET COUNT (AUTO) 316 K/uL (150-450); RED BLOOD CELL COUNT(AUTO) 5.06 MIL/uL (4.50-5.90); RED CELL DISTRIBUTION WIDTH 14.7 % (11.5-14.5)
[2020-08-21 11:15] LABS: ANION GAP 9 mmol/L (8-16); CARBON DIOXIDE 28 mmol/L (22-29); CHLORIDE 105 mmol/L (98-107); CREATININE 1.21 mg/dL (0.60-1.30); GLOMERULAR FILTR. RATE CALC > 60 mL/min (>60); GLUCOSE,RANDOM 118 mg/dL (70-110); POTASSIUM 4.5 mmol/L (3.5-5.1); SODIUM SERUM 142 mmol/L (136-145); UREA NITROGEN, BLOOD 18 mg/dL (7-18); VANCOMYCIN,RANDOM 15.9 mcg/mL (25.0-50.0)
[2020-08-21 11:37] LABS: GLUCOMETER DEV NAME(LOC) 6S.1; GLUCOSE,POINT OF CARE 114 MG/DL (70-110)
[2020-08-21 15:38] VITALS: BP 105/65
[2020-08-21 17:16] LABS: GLUCOMETER DEV NAME(LOC) 6S.1; GLUCOSE,POINT OF CARE 75 MG/DL (70-110)
[2020-08-21 20:30] VITALS: BP 107/57
[2020-08-21] MEDS: VANCOMYCIN HCL 1 GM/D5% WATER 200 ML IV SCH (20:30)
[2020-08-21] MEDS ORDERED: SODIUM CHLORIDE 0.9% 1,000 ML ONE (21:40)
[2020-08-22] VITALS (7 sets, daily range): BP systolic 100–125; BP diastolic 59–78
[2020-08-22 07:20] LABS: GLUCOMETER DEV NAME(LOC) 6N.1; GLUCOSE,POINT OF CARE 135 MG/DL (70-110)
[2020-08-22 07:20] LABS: GLUCOMETER DEV NAME(LOC) 6N.1; GLUCOSE,POINT OF CARE 130 MG/DL (70-110)
[2020-08-22] MEDS: VANCOMYCIN HCL 1 GM/D5% WATER 200 ML IV SCH (08:15)
[2020-08-22] MEDS: MetFORMIN HCL 500 MG TABLET PO SCH ×2 (08:16→17:56)
[2020-08-22] MEDS: DOCUSATE SODIUM 100 MG CAPSULE PO SCH ×2 (08:16→20:22)
[2020-08-22] MEDS: OLANZapine 10 MG TABLET PO SCH ×2 (08:16→20:22)
[2020-08-22] MEDS: FUROSEMIDE 20 MG/2 ML VIAL IVP SCH (08:16)
[2020-08-22] MEDS: PANTOPRAZOLE SODIUM 40 MG DR TABLET PO SCH (08:16)
[2020-08-22] MEDS: MORPHINE SULFATE 2 MG/ML SYRINGE IVP PRN ×2 (08:16→21:01)
[2020-08-22] MEDS: BuPROPion HCL XL 150 MG ER TABLET PO SCH (08:16)
[2020-08-22] MEDS: HEPARIN SODIUM,PORCINE 5,000 UNITS/ML VIAL SQ SCH ×4 (08:23→23:52)
[2020-08-22] MEDS: INSULIN GLARGINE,HUM.REC.ANLOG 100 UNITS/ML SQ SCH ×2 (08:32→20:51)
[2020-08-22 11:37] LABS: GLUCOMETER DEV NAME(LOC) 6N.1; GLUCOSE,POINT OF CARE 93 MG/DL (70-110)
[2020-08-22] MEDS ORDERED: FURO20 PO (11:41)
[2020-08-22] MEDS ORDERED: INSLAN SQ (11:42)
[2020-08-22] MEDS ORDERED: CEPH500C3 PO (11:44)
[2020-08-22] MEDS ORDERED: BACTDSB PO (11:44)
[2020-08-22 12:57] LABS: BASOPHILS % (AUTO) 0.7 % (0.0-2.0); EOSINOPHILS % (AUTO) 2.9 % (1.0-6.0); HEMATOCRIT 47.2 % (41-53); HEMOGLOBIN 15.6 g/dL (13.5-17.5); LYMPHOCYTES # (AUTO) 2.4 K/uL (1.0-4.8); LYMPHOCYTES % (AUTO) 46.2 % (22.0-44.0); MEAN CORPUSCULAR HEMOGLOBIN 30.7 pg (26.0-34.0); MEAN CORPUSCULAR HGB CONC 33.1 G/dL (31.0-37.0); MEAN CORPUSCULAR VOLUME 93 fL (80-100); MONOCYTES # (AUTO) 0.3 K/uL (0.1-1.0); MONOCYTES % (AUTO) 5.2 % (2.0-9.0); NEUTROPHILS # (AUTO) 2.3 K/uL (1.8-7.7); PLATELET COUNT (AUTO) 307 K/uL (150-450); RED BLOOD CELL COUNT(AUTO) 5.09 MIL/uL (4.50-5.90); RED CELL DISTRIBUTION WIDTH 14.6 % (11.5-14.5)
[2020-08-22 13:11] LABS: ANION GAP 7 mmol/L (8-16); CARBON DIOXIDE 27 mmol/L (22-29); CHLORIDE 104 mmol/L (98-107); CREATININE 1.15 mg/dL (0.60-1.30); GLOMERULAR FILTR. RATE CALC > 60 mL/min (>60); GLUCOSE,RANDOM 137 mg/dL (70-110); POTASSIUM 4.5 mmol/L (3.5-5.1); SODIUM SERUM 138 mmol/L (136-145); UREA NITROGEN, BLOOD 28 mg/dL (7-18)
[2020-08-22] MEDS: CEPHALEXIN MONOHYDRATE 500 MG CAPSULE PO SCH ×2 (17:40→20:25)
[2020-08-22 18:10] LABS: GLUCOMETER DEV NAME(LOC) 6N.1; GLUCOSE,POINT OF CARE 82 MG/DL (70-110)
[2020-08-22] MEDS: SULFAMETHOX/TRIMETH DS 800-160 MG/TABLET PO SCH (20:24)
[2020-08-22] MEDS: FUROSEMIDE 20 MG TABLET PO SCH (20:24)
[2020-08-22] MEDS: INSULIN LISPRO 100 UNITS/ML SQ PRN (20:52)
[2020-08-23 04:19] LABS: GLUCOMETER DEV NAME(LOC) 6N.1; GLUCOSE,POINT OF CARE 151 MG/DL (70-110)
[2020-08-23 04:57] VITALS: BP 126/68
[2020-08-23 06:24] LABS: CALCIUM, TOTAL 8.8 mg/dL (8.8-10.5); CREATININE 1.31 mg/dL (0.60-1.30); POTASSIUM 4.1 mmol/L (3.5-5.1)
[2020-08-23 07:36] VITALS: BP 103/71
[2020-08-23 07:53] LABS: GLUCOMETER DEV NAME(LOC) 6N.1; GLUCOSE,POINT OF CARE 74 MG/DL (70-110)
[2020-08-23] MEDS: FUROSEMIDE 20 MG TABLET PO SCH ×2 (08:01→20:36)
[2020-08-23] MEDS: PANTOPRAZOLE SODIUM 40 MG DR TABLET PO SCH (08:01)
[2020-08-23] MEDS: DOCUSATE SODIUM 100 MG CAPSULE PO SCH ×2 (08:01→20:35)
[2020-08-23] MEDS: CEPHALEXIN MONOHYDRATE 500 MG CAPSULE PO SCH ×3 (08:01→20:36)
[2020-08-23] MEDS: OLANZapine 10 MG TABLET PO SCH ×2 (08:02→20:35)
[2020-08-23] MEDS: BuPROPion HCL XL 150 MG ER TABLET PO SCH (08:02)
[2020-08-23] MEDS: SULFAMETHOX/TRIMETH DS 800-160 MG/TABLET PO SCH ×2 (08:02→20:35)
[2020-08-23] MEDS: HEPARIN SODIUM,PORCINE 5,000 UNITS/ML VIAL SQ SCH ×3 (08:02→23:59)
[2020-08-23] MEDS: MetFORMIN HCL 500 MG TABLET PO SCH ×2 (08:02→17:18)
[2020-08-23] MEDS: INSULIN GLARGINE,HUM.REC.ANLOG 100 UNITS/ML SQ SCH ×2 (08:08→20:50)
[2020-08-23] MEDS: MORPHINE SULFATE 2 MG/ML SYRINGE IVP PRN ×2 (08:40→20:45)
[2020-08-23 15:32] LABS: GLUCOMETER DEV NAME(LOC) 6N.1; GLUCOSE,POINT OF CARE 91 MG/DL (70-110)
[2020-08-23 15:43] VITALS: BP 103/60
[2020-08-23 19:20] VITALS: BP 98/54
[2020-08-23 23:05] LABS: GLUCOMETER DEV NAME(LOC) 6N.1; GLUCOSE,POINT OF CARE 103 MG/DL (70-110)
[2020-08-23 23:05] LABS: GLUCOMETER DEV NAME(LOC) 6N.1; GLUCOSE,POINT OF CARE 72 MG/DL (70-110)
[2020-08-24 01:09] VITALS: BP 95/60
[2020-08-24 06:15] VITALS: BP 98/65
[2020-08-24] MEDS: MAGNESIUM HYDROXIDE SUSPENSION 30 ML UDCUP PO PRN ×2 (06:30→18:08)
[2020-08-24 06:49] LABS: GLUCOMETER DEV NAME(LOC) 6N.1; GLUCOSE,POINT OF CARE 94 MG/DL (70-110)
[2020-08-24 08:22] VITALS: BP 99/65
[2020-08-24] MEDS: HEPARIN SODIUM,PORCINE 5,000 UNITS/ML VIAL SQ SCH ×3 (09:28→23:06)
[2020-08-24] MEDS: SULFAMETHOX/TRIMETH DS 800-160 MG/TABLET PO SCH ×2 (09:28→20:38)
[2020-08-24] MEDS: DOCUSATE SODIUM 100 MG CAPSULE PO SCH ×2 (09:28→20:38)
[2020-08-24] MEDS: MetFORMIN HCL 500 MG TABLET PO SCH ×2 (09:28→18:08)
[2020-08-24] MEDS: BuPROPion HCL XL 150 MG ER TABLET PO SCH (09:29)
[2020-08-24] MEDS: FUROSEMIDE 20 MG TABLET PO SCH ×2 (09:29→20:39)
[2020-08-24] MEDS: OLANZapine 10 MG TABLET PO SCH ×2 (09:29→20:38)
[2020-08-24] MEDS: CEPHALEXIN MONOHYDRATE 500 MG CAPSULE PO SCH ×3 (09:29→20:38)
[2020-08-24] MEDS: PANTOPRAZOLE SODIUM 40 MG DR TABLET PO SCH (09:29)
[2020-08-24] MEDS: INSULIN GLARGINE,HUM.REC.ANLOG 100 UNITS/ML SQ SCH ×2 (09:34→20:45)
[2020-08-24] MEDS: MORPHINE SULFATE 2 MG/ML SYRINGE IVP PRN (09:57)
[2020-08-24 15:31] VITALS: BP 117/70
[2020-08-24 19:59] VITALS: BP 125/58
[2020-08-24 23:04] VITALS: BP 118/70
[2020-08-25 03:51] LABS: GLUCOMETER DEV NAME(LOC) 6S.1; GLUCOSE,POINT OF CARE 114 MG/DL (70-110)
[2020-08-25 03:52] LABS: GLUCOMETER DEV NAME(LOC) 6N.1; GLUCOSE,POINT OF CARE 108 MG/DL (70-110)
[2020-08-25 03:52] LABS: GLUCOMETER DEV NAME(LOC) 6S.1; GLUCOSE,POINT OF CARE 131 MG/DL (70-110)
[2020-08-25] MEDS: MetFORMIN HCL 500 MG TABLET PO SCH (08:00)
[2020-08-25 08:19] VITALS: BP 97/56
[2020-08-25] MEDS: SULFAMETHOX/TRIMETH DS 800-160 MG/TABLET PO SCH (08:41)
[2020-08-25] MEDS: CEPHALEXIN MONOHYDRATE 500 MG CAPSULE PO SCH (08:41)
[2020-08-25] MEDS: OLANZapine 10 MG TABLET PO SCH (08:41)
[2020-08-25] MEDS: BuPROPion HCL XL 150 MG ER TABLET PO SCH (08:41)
[2020-08-25] MEDS: HEPARIN SODIUM,PORCINE 5,000 UNITS/ML VIAL SQ SCH (08:42)
[2020-08-25] MEDS: PANTOPRAZOLE SODIUM 40 MG DR TABLET PO SCH (08:42)
[2020-08-25] MEDS: FUROSEMIDE 20 MG TABLET PO SCH (08:42)
[2020-08-25] MEDS: DOCUSATE SODIUM 100 MG CAPSULE PO SCH (08:43)
[2020-08-25] MEDS: INSULIN GLARGINE,HUM.REC.ANLOG 100 UNITS/ML SQ SCH (08:43)
[2020-08-25 11:52] LABS: GLUCOMETER DEV NAME(LOC) 6S.1; GLUCOSE,POINT OF CARE 81 MG/DL (70-110)
[2020-08-25 20:14] LABS: GLUCOMETER DEV NAME(LOC) 4E.2; GLUCOSE,POINT OF CARE 90 MG/DL (70-110)
== END 2020-08-25 15:50 | disposition home or self-care (01) | DRG 603 ==
LOC: EMS 01:33 → 6N 11:17 → 4E 08-25 11:39
PROVIDERS: ADMIT Internal Medicine; ATTEND Internal Medicine
DX: L03.116 Cellulitis of left lower limb (principal); I50.42 Chronic combined systolic (congestive) and diastolic (congestive) heart failure; L03.115 Cellulitis of right lower limb; E66.01 Morbid (severe) obesity due to excess calories; B19.20 Unspecified viral hepatitis C without hepatic coma; E11.9 Type 2 diabetes mellitus without complications; F11.90 Opioid use, unspecified, uncomplicated; F15.90 Other stimulant use, unspecified, uncomplicated; F41.9 Anxiety disorder, unspecified; F31.9 Bipolar disorder, unspecified; F25.0 Schizoaffective disorder, bipolar type; I11.0 Hypertensive heart disease with heart failure; F17.210 Nicotine dependence, cigarettes, uncomplicated; J45.909 Unspecified asthma, uncomplicated; K74.60 Unspecified cirrhosis of liver; Z59.0 Homelessness; Z79.4 Long term (current) use of insulin; Z79.899 Other long term (current) drug therapy; Z86.59 Personal history of other mental and behavioral disorders; Z91.19 Patient's noncompliance with other medical treatment and regimen; Z68.36 Body mass index [BMI] 36.0-36.9, adult; Z88.8 Allergy status to other drugs, medicaments and biological substances; Z90.49 Acquired absence of other specified parts of digestive tract
CPT/HCPCS: 71045; 80048; 80053; 80202; 81003; 82550; 82962; 83880; 84484; 85025; 85610; 85730; 93005; 93970; 99285; J1644; J1815; J1940; J2270; J3370; J7030; J7060; 36415-L1; 36415-TC

== ENCOUNTER 2021-09-30 15:34 | Inpatient (IN) | payer MEDICAID ==
[~2021-09-30] VITALS: Ht 182.9 cm; Wt 107.2 kg
[~2021-09-30 15:34] MED LIST changes: +BACTDSB PO; +BUPR-50 PO; -BUPR-93 PO; +CEPH-558 PO; +FURO20 PO; +METF-1211 PO; -METF-960 PO
[2021-09-30 16:35] LABS: BASOPHILS % (AUTO) 1.1 % (0.0-2.0); EOSINOPHILS % (AUTO) 2.3 % (1.0-6.0); HEMATOCRIT 39.9 % (41-53); HEMOGLOBIN 13.6 g/dL (13.5-17.5); LYMPHOCYTES # (AUTO) 1.3 K/uL (1.0-4.8); LYMPHOCYTES % (AUTO) 24.8 % (22.0-44.0); MEAN CORPUSCULAR HEMOGLOBIN 30.7 pg (26.0-34.0); MEAN CORPUSCULAR HGB CONC 34.1 G/dL (31.0-37.0); MEAN CORPUSCULAR VOLUME 90 fL (80-100); MONOCYTES # (AUTO) 0.4 K/uL (0.1-1.0); MONOCYTES % (AUTO) 8.1 % (2.0-9.0); NEUTROPHILS # (AUTO) 3.4 K/uL (1.8-7.7); NEUTROPHILS % (AUTO) 63.7 % (40.0-70.0); PLATELET COUNT (AUTO) 296 K/uL (150-450); RED BLOOD CELL COUNT(AUTO) 4.44 MIL/uL (4.50-5.90); RED CELL DISTRIBUTION WIDTH 14.4 % (11.5-14.5)
[2021-09-30 16:40] LABS: ANION GAP 8 mmol/L (8-16); CALCIUM, TOTAL 8.4 mg/dL (8.8-10.5); CARBON DIOXIDE 26 mmol/L (22-29); CHLORIDE 109 mmol/L (98-107); CREATININE 1.03 mg/dL (0.60-1.30); GLOMERULAR FILTR. RATE CALC > 60 mL/min (>60); GLUCOSE,RANDOM 131 mg/dL (70-110); POTASSIUM 4.3 mmol/L (3.5-5.1); SODIUM SERUM 143 mmol/L (136-145); UREA NITROGEN, BLOOD 31 mg/dL (7-18)
[2021-09-30 16:43] LABS: PROTHROMBIN TIME 10.4 SEC (9.4-11.6)
[2021-09-30 16:45] LABS: ALANINE AMINOTRANSFERASE 42 U/L (12-78); ALBUMIN 3.2 g/dL (3.4-5.0); ALKALINE PHOSPHATASE 156 U/L (46-116); ASPARTATE AMINOTRANSFERASE 34 U/L (15-37); BILIRUBIN,TOTAL 0.4 mg/dL (0.1-1.0); TOTAL PROTEIN, SERUM 7.2 g/dL (6.4-8.2)
[2021-09-30 16:57] LABS: B-TYPE NATRIURETIC PEPTIDE 11 pg/mL (0-100)
[2021-09-30] MEDS ORDERED: ZOLPIDEM TARTRATE 10 MG TABLET PO PRN (18:30)
[2021-09-30 19:12] LABS: COVID AG,FIA SOURCE NASAL SWAB
[2021-10-01 08:16] LABS: GLUCOSE,POINT OF CARE 177 MG/DL (70-110)
[2021-10-01 09:00] VITALS: BP 143/87
[2021-10-01] MEDS ORDERED: DEXTROSE 50%-WATER 25 GM/50 ML SYRINGE IVP PRN (10:15)
[2021-10-01 12:02] LABS: GLUCOMETER DEV NAME(LOC) 3E.C; GLUCOSE,POINT OF CARE 93 MG/DL (70-110)
[2021-10-01 17:12] LABS: GLUCOMETER DEV NAME(LOC) 3E.C; GLUCOSE,POINT OF CARE 90 MG/DL (70-110)
[2021-10-01] MEDS ORDERED: PETROLATUM,WHITE 28 GM JELLY TP PRN (17:30)
[2021-10-01] MEDS ORDERED: CloNIDine HCL 0.1 MG TABLET PO PRN (17:30)
[2021-10-01] MEDS ORDERED: ONDANSETRON HCL 4 MG TABLET PO PRN (17:30)
[2021-10-01] MEDS ORDERED: ALBUTEROL SULFATE HFA 90 MCG/PUFF 8 GM INHALER IH PRN (17:30)
[2021-10-01] MEDS ORDERED: OMEPRAZOLE 20 MG CAPSULE PO PRN (17:30)
[2021-10-01] MEDS ORDERED: MAG HYDROX/AL HYDROX/SIMETH ES 30 ML SUSPENSION UDCUP PO PRN (17:30)
[2021-10-01] MEDS ORDERED: BACITRACIN 28 GM OINTMENT TP PRN (17:30)
[2021-10-01] MEDS ORDERED: BENZOCAINE/MENTHOL LOZENGE PO PRN (17:30)
[2021-10-01] MEDS ORDERED: DOCUSATE SODIUM 100 MG CAPSULE PO PRN (17:30)
[2021-10-01] MEDS ORDERED: MAGNESIUM HYDROXIDE SUSPENSION 30 ML UDCUP PO PRN (17:30)
[2021-10-01] MEDS ORDERED: LOPERAMIDE HCL 2 MG CAPSULE PO PRN (17:30)
[2021-10-01] MEDS: MetFORMIN HCL 500 MG TABLET PO SCH (17:32)
[2021-10-01] MEDS: INSULIN GLARGINE,HUM.REC.ANLOG 100 UNITS/ML SQ SCH (20:44)
[2021-10-01 20:56] LABS: GLUCOMETER DEV NAME(LOC) 3E.C; GLUCOSE,POINT OF CARE 118 MG/DL (70-110)
[2021-10-02] MEDS: MetFORMIN HCL 500 MG TABLET PO SCH ×2 (06:31→16:32)
[2021-10-02 06:41] LABS: GLUCOMETER DEV NAME(LOC) 3E.C; GLUCOSE,POINT OF CARE 98 MG/DL (70-110)
[2021-10-02 08:06] VITALS: BP 135/70
[2021-10-02] MEDS: INSULIN GLARGINE,HUM.REC.ANLOG 100 UNITS/ML SQ SCH ×2 (09:26→20:47)
[2021-10-02 09:36] LABS: GLUCOMETER DEV NAME(LOC) 3E.C; GLUCOSE,POINT OF CARE 132 MG/DL (70-110)
[2021-10-02 11:36] LABS: GLUCOMETER DEV NAME(LOC) 3E.C; GLUCOSE,POINT OF CARE 98 MG/DL (70-110)
[2021-10-02] MEDS: LORazepam 2 MG TABLET PO PRN (16:32)
[2021-10-02 16:53] VITALS: BP 151/102
[2021-10-02 19:51] LABS: GLUCOMETER DEV NAME(LOC) 3E.C; GLUCOSE,POINT OF CARE 81 MG/DL (70-110)
[2021-10-02 20:26] LABS: GLUCOMETER DEV NAME(LOC) 3E.C; GLUCOSE,POINT OF CARE 96 MG/DL (70-110)
[2021-10-02] MEDS: OLANZapine 7.5 MG TABLET PO SCH (20:33)
[2021-10-03 06:51] LABS: GLUCOMETER DEV NAME(LOC) 3E.C; GLUCOSE,POINT OF CARE 77 MG/DL (70-110)
[2021-10-03] MEDS: MetFORMIN HCL 500 MG TABLET PO SCH ×2 (07:02→16:21)
[2021-10-03 08:09] VITALS: BP 155/83
[2021-10-03] MEDS: BuPROPion HCL 150 MG SR TABLET PO SCH (08:48)
[2021-10-03] MEDS: INSULIN GLARGINE,HUM.REC.ANLOG 100 UNITS/ML SQ SCH ×2 (08:52→21:01)
[2021-10-03 12:31] LABS: GLUCOMETER DEV NAME(LOC) 3E.C; GLUCOSE,POINT OF CARE 127 MG/DL (70-110)
[2021-10-03] MEDS ORDERED: HYDROCORTISONE 1% 30 GM OINTMENT TP PRN (13:45)
[2021-10-03 16:08] VITALS: BP 135/86
[2021-10-03] MEDS: LORazepam 2 MG TABLET PO PRN (16:21)
[2021-10-03 16:26] LABS: GLUCOMETER DEV NAME(LOC) 3E.C; GLUCOSE,POINT OF CARE 72 MG/DL (70-110)
[2021-10-03] MEDS: OLANZapine 7.5 MG TABLET PO SCH (20:18)
[2021-10-03 20:36] LABS: GLUCOMETER DEV NAME(LOC) 3E.C; GLUCOSE,POINT OF CARE 90 MG/DL (70-110)
[2021-10-04] MEDS: MetFORMIN HCL 500 MG TABLET PO SCH ×2 (07:03→16:52)
[2021-10-04 07:16] LABS: GLUCOMETER DEV NAME(LOC) 3E.C; GLUCOSE,POINT OF CARE 84 MG/DL (70-110)
[2021-10-04 08:06] LABS: HEMATOCRIT 47.5 % (41-53); HEMOGLOBIN 16.1 g/dL (13.5-17.5); LYMPHOCYTES # (AUTO) 2.1 K/uL (1.0-4.8); MEAN CORPUSCULAR HEMOGLOBIN 30.7 pg (26.0-34.0); MEAN CORPUSCULAR HGB CONC 33.9 G/dL (31.0-37.0); MEAN CORPUSCULAR VOLUME 91 fL (80-100); MONOCYTES # (AUTO) 0.3 K/uL (0.1-1.0); MONOCYTES % (AUTO) 4.9 % (2.0-9.0); NEUTROPHILS # (AUTO) 3.3 K/uL (1.8-7.7); NEUTROPHILS % (AUTO) 56.1 % (40.0-70.0); PLATELET COUNT (AUTO) 322 K/uL (150-450); RED BLOOD CELL COUNT(AUTO) 5.24 MIL/uL (4.50-5.90); RED CELL DISTRIBUTION WIDTH 14.4 % (11.5-14.5)
[2021-10-04 08:17] VITALS: BP 128/88
[2021-10-04 08:25] LABS: ALANINE AMINOTRANSFERASE 59 U/L (12-78); ALBUMIN 3.3 g/dL (3.4-5.0); ALKALINE PHOSPHATASE 85 U/L (46-116); ANION GAP 5 mmol/L (8-16); ASPARTATE AMINOTRANSFERASE 48 U/L (15-37); BILIRUBIN,TOTAL 0.7 mg/dL (0.1-1.0); CALCIUM, TOTAL 9.5 mg/dL (8.8-10.5); CARBON DIOXIDE 30 mmol/L (22-29); CHLORIDE 105 mmol/L (98-107); CREATINE KINASE, TOTAL ONLY 49 U/L (39-308); CREATININE 1.07 mg/dL (0.60-1.30); GLUCOSE,RANDOM 83 mg/dL (70-110); PHOSPHORUS 4.4 mg/dL (2.5-4.9); POTASSIUM 4.9 mmol/L (3.5-5.1); SODIUM SERUM 140 mmol/L (136-145); UREA NITROGEN, BLOOD 18 mg/dL (7-18)
[2021-10-04 08:26] LABS: GLOMERULAR FILTR. RATE CALC > 60 mL/min (>60)
[2021-10-04] MEDS: BuPROPion HCL 150 MG SR TABLET PO SCH (09:25)
[2021-10-04] MEDS: INSULIN GLARGINE,HUM.REC.ANLOG 100 UNITS/ML SQ SCH ×2 (09:27→21:03)
[2021-10-04 12:36] LABS: GLUCOMETER DEV NAME(LOC) 3E.C; GLUCOSE,POINT OF CARE 113 MG/DL (70-110)
[2021-10-04] MEDS: LORazepam 2 MG TABLET PO PRN (16:53)
[2021-10-04 16:56] LABS: GLUCOMETER DEV NAME(LOC) 3E.C; GLUCOSE,POINT OF CARE 107 MG/DL (70-110)
[2021-10-04] MEDS: OLANZapine 7.5 MG TABLET PO SCH (21:05)
[2021-10-04 21:16] LABS: GLUCOMETER DEV NAME(LOC) 3E.C; GLUCOSE,POINT OF CARE 99 MG/DL (70-110)
[2021-10-05] MEDS: MetFORMIN HCL 500 MG TABLET PO SCH ×2 (06:37→17:36)
[2021-10-05 06:41] LABS: GLUCOMETER DEV NAME(LOC) 3E.C; GLUCOSE,POINT OF CARE 87 MG/DL (70-110)
[2021-10-05] MEDS: HALOPERIDOL 5 MG TABLET PO PRN (07:50)
[2021-10-05] MEDS: LORazepam 2 MG TABLET PO PRN (07:50)
[2021-10-05] MEDS: BuPROPion HCL 150 MG SR TABLET PO SCH (07:50)
[2021-10-05] MEDS: INSULIN GLARGINE,HUM.REC.ANLOG 100 UNITS/ML SQ SCH ×2 (07:58→21:03)
[2021-10-05 08:34] VITALS: BP 121/87
[2021-10-05 14:11] LABS: GLUCOMETER DEV NAME(LOC) 3E.C; GLUCOSE,POINT OF CARE 94 MG/DL (70-110)
[2021-10-05 16:02] VITALS: BP_SYST 114; BP_SYST 131; BP_DIAS 81; BP_DIAS 84
[2021-10-05] MEDS: PRAMOXINE HCL/CALAMINE 177 ML BOTTLE TP SCH (16:16)
[2021-10-05 16:36] LABS: GLUCOMETER DEV NAME(LOC) 3E.C; GLUCOSE,POINT OF CARE 74 MG/DL (70-110)
[2021-10-05 20:47] LABS: GLUCOMETER DEV NAME(LOC) 3E.C; GLUCOSE,POINT OF CARE 164 MG/DL (70-110)
[2021-10-05] MEDS: OLANZapine 7.5 MG TABLET PO SCH (21:01)
[2021-10-05] MEDS: INSULIN LISPRO 100 UNITS/ML SQ PRN (21:05)
[2021-10-06 06:21] LABS: GLUCOMETER DEV NAME(LOC) 3E.C; GLUCOSE,POINT OF CARE 81 MG/DL (70-110)
[2021-10-06 06:30] LABS: COVID AG,FIA SOURCE NASAL SWAB
[2021-10-06] MEDS: MetFORMIN HCL 500 MG TABLET PO SCH ×2 (06:39→16:26)
[2021-10-06 08:11] VITALS: BP 124/77
[2021-10-06] MEDS: HALOPERIDOL 5 MG TABLET PO PRN (08:53)
[2021-10-06] MEDS: LORazepam 2 MG TABLET PO PRN ×2 (08:53→16:26)
[2021-10-06] MEDS: BuPROPion HCL 150 MG SR TABLET PO SCH (08:53)
[2021-10-06] MEDS: INSULIN GLARGINE,HUM.REC.ANLOG 100 UNITS/ML SQ SCH ×2 (08:56→20:28)
[2021-10-06] MEDS: PRAMOXINE HCL/CALAMINE 177 ML BOTTLE TP SCH ×2 (09:07→16:26)
[2021-10-06 11:11] LABS: GLUCOMETER DEV NAME(LOC) 3E.C; GLUCOSE,POINT OF CARE 100 MG/DL (70-110)
[2021-10-06 16:05] VITALS: BP 134/84
[2021-10-06 16:50] LABS: GLUCOMETER DEV NAME(LOC) 3E.C; GLUCOSE,POINT OF CARE 98 MG/DL (70-110)
[2021-10-06] MEDS: OLANZapine 7.5 MG TABLET PO SCH (20:12)
[2021-10-06] MEDS: INSULIN LISPRO 100 UNITS/ML SQ PRN (20:13)
[2021-10-06 20:56] LABS: GLUCOMETER DEV NAME(LOC) 3E.C; GLUCOSE,POINT OF CARE 157 MG/DL (70-110)
[2021-10-07 06:07] LABS: GLUCOMETER DEV NAME(LOC) 3E.C; GLUCOSE,POINT OF CARE 88 MG/DL (70-110)
[2021-10-07] MEDS: MetFORMIN HCL 500 MG TABLET PO SCH ×2 (06:37→16:22)
[2021-10-07] MEDS: BuPROPion HCL 150 MG SR TABLET PO SCH (08:00)
[2021-10-07] MEDS: HALOPERIDOL 5 MG TABLET PO PRN (08:00)
[2021-10-07] MEDS: LORazepam 2 MG TABLET PO PRN ×2 (08:00→16:23)
[2021-10-07 08:13] VITALS: BP 134/82
[2021-10-07] MEDS: INSULIN GLARGINE,HUM.REC.ANLOG 100 UNITS/ML SQ SCH ×2 (09:21→21:03)
[2021-10-07] MEDS: PRAMOXINE HCL/CALAMINE 177 ML BOTTLE TP SCH ×2 (09:23→16:22)
[2021-10-07 09:31] LABS: GLUCOMETER DEV NAME(LOC) 3E.C; GLUCOSE,POINT OF CARE 121 MG/DL (70-110)
[2021-10-07 12:11] LABS: GLUCOMETER DEV NAME(LOC) 3E.C; GLUCOSE,POINT OF CARE 69 MG/DL (70-110)
[2021-10-07 12:21] LABS: GLUCOMETER DEV NAME(LOC) 3E.C; GLUCOSE,POINT OF CARE 65 MG/DL (70-110)
[2021-10-07 13:31] LABS: GLUCOMETER DEV NAME(LOC) 3E.C; GLUCOSE,POINT OF CARE 135 MG/DL (70-110)
[2021-10-07 15:56] LABS: GLUCOMETER DEV NAME(LOC) 3E.C; GLUCOSE,POINT OF CARE 82 MG/DL (70-110)
[2021-10-07 16:36] VITALS: BP 131/88
[2021-10-07] MEDS: OLANZapine 7.5 MG TABLET PO SCH (20:12)
[2021-10-07 21:46] LABS: GLUCOMETER DEV NAME(LOC) 3E.C; GLUCOSE,POINT OF CARE 98 MG/DL (70-110)
[2021-10-08 06:32] LABS: GLUCOMETER DEV NAME(LOC) 3E.C; GLUCOSE,POINT OF CARE 78 MG/DL (70-110)
[2021-10-08] MEDS: MetFORMIN HCL 500 MG TABLET PO SCH ×2 (07:00→16:28)
[2021-10-08 08:07] VITALS: BP 120/82
[2021-10-08] MEDS: BuPROPion HCL 150 MG SR TABLET PO SCH (09:12)
[2021-10-08] MEDS: PRAMOXINE HCL/CALAMINE 177 ML BOTTLE TP SCH ×2 (09:12→16:28)
[2021-10-08] MEDS: HALOPERIDOL 5 MG TABLET PO PRN (09:13)
[2021-10-08] MEDS: LORazepam 2 MG TABLET PO PRN ×2 (09:13→16:28)
[2021-10-08] MEDS: INSULIN GLARGINE,HUM.REC.ANLOG 100 UNITS/ML SQ SCH ×2 (09:19→21:10)
[2021-10-08 09:31] LABS: GLUCOMETER DEV NAME(LOC) 3E.C; GLUCOSE,POINT OF CARE 137 MG/DL (70-110)
[2021-10-08 11:16] LABS: GLUCOMETER DEV NAME(LOC) 3E.C; GLUCOSE,POINT OF CARE 79 MG/DL (70-110)
[2021-10-08 16:10] VITALS: BP 137/85
[2021-10-08 17:06] LABS: GLUCOMETER DEV NAME(LOC) 3E.C; GLUCOSE,POINT OF CARE 80 MG/DL (70-110)
[2021-10-08] MEDS: OLANZapine 7.5 MG TABLET PO SCH (20:20)
[2021-10-08 21:25] LABS: GLUCOMETER DEV NAME(LOC) 3E.C; GLUCOSE,POINT OF CARE 103 MG/DL (70-110)
[2021-10-09 06:26] LABS: GLUCOMETER DEV NAME(LOC) 3E.C; GLUCOSE,POINT OF CARE 82 MG/DL (70-110)
[2021-10-09] MEDS: MetFORMIN HCL 500 MG TABLET PO SCH (07:03)
[2021-10-09] MEDS: INSULIN LISPRO 100 UNITS/ML SQ PRN (07:04)
[2021-10-09 08:22] VITALS: BP 164/104
[2021-10-09] MEDS: BuPROPion HCL 150 MG SR TABLET PO SCH (09:22)
[2021-10-09] MEDS: PRAMOXINE HCL/CALAMINE 177 ML BOTTLE TP SCH (09:22)
[2021-10-09] MEDS: INSULIN GLARGINE,HUM.REC.ANLOG 100 UNITS/ML SQ SCH (09:34)
[2021-10-09 11:32] LABS: GLUCOMETER DEV NAME(LOC) 3E.C; GLUCOSE,POINT OF CARE 133 MG/DL (70-110)
[2021-10-09] MEDS ORDERED: BUPR-290 PO (12:25)
[2021-10-09] MEDS ORDERED: OLAN7.5T22 PO (12:25)
[2021-10-10] MEDS ORDERED: ARIP10TA38 PO (07:43)
[2021-10-10] MEDS ORDERED: BUPR-50 PO (07:43)
== END 2021-10-09 13:30 | disposition home or self-care (01) | DRG 750 ==
LOC: EMS 15:34 → 3EC 10-01 05:13
PROVIDERS: ADMIT Psychiatry & Neurology Psychiatry; ATTEND Psychiatry & Neurology Psychiatry
DX: F25.9 Schizoaffective disorder, unspecified (principal); I50.9 Heart failure, unspecified; R45.851 Suicidal ideations; E11.9 Type 2 diabetes mellitus without complications; I11.0 Hypertensive heart disease with heart failure; Z20.822 Contact with and (suspected) exposure to COVID-19; E66.9 Obesity, unspecified; F15.10 Other stimulant abuse, uncomplicated; F17.200 Nicotine dependence, unspecified, uncomplicated; F32.A Depression, unspecified; K21.9 Gastro-esophageal reflux disease without esophagitis; K59.00 Constipation, unspecified; K76.9 Liver disease, unspecified; R09.02 Hypoxemia; Z59.00 Homelessness unspecified; Z90.49 Acquired absence of other specified parts of digestive tract; Z79.899 Other long term (current) drug therapy; Z91.14 Patient's other noncompliance with medication regimen; Z88.8 Allergy status to other drugs, medicaments and biological substances; Z91.018 Allergy to other foods; Z68.32 Body mass index [BMI] 32.0-32.9, adult
CPT/HCPCS: 71045; 80053; 82550; 82962; 83735; 83880; 84100; 84484; 85025; 85610; 85730; 93005; 99285; G0480; J1815; 36415-L1; 36415-TC

== ENCOUNTER 2021-10-10 03:40 | Emergency (ER) | payer MEDICAID ==
[~2021-10-10] VITALS: Ht 182.9 cm; Wt 107.7 kg
[~2021-10-10 03:40] MED LIST changes: +BUPR-290 PO; -OLAN10TA74 PO; +OLAN7.5T22 PO
[2021-10-10 04:52] LABS: BASOPHILS % (AUTO) 0.5 % (0.0-2.0); EOSINOPHILS % (AUTO) 0.1 % (1.0-6.0); HEMATOCRIT 44.9 % (41-53); HEMOGLOBIN 15.2 g/dL (13.5-17.5); LYMPHOCYTES # (AUTO) 1.9 K/uL (1.0-4.8); LYMPHOCYTES % (AUTO) 21.3 % (22.0-44.0); MEAN CORPUSCULAR HEMOGLOBIN 30.7 pg (26.0-34.0); MEAN CORPUSCULAR HGB CONC 33.9 G/dL (31.0-37.0); MEAN CORPUSCULAR VOLUME 90 fL (80-100); MONOCYTES # (AUTO) 0.7 K/uL (0.1-1.0); MONOCYTES % (AUTO) 7.4 % (2.0-9.0); NEUTROPHILS # (AUTO) 6.3 K/uL (1.8-7.7); NEUTROPHILS % (AUTO) 70.7 % (40.0-70.0); PLATELET COUNT (AUTO) 292 K/uL (150-450); RED BLOOD CELL COUNT(AUTO) 4.97 MIL/uL (4.50-5.90); RED CELL DISTRIBUTION WIDTH 13.7 % (11.5-14.5)
[2021-10-10 05:00] LABS: ANION GAP 5 mmol/L (8-16); CALCIUM, TOTAL 9.4 mg/dL (8.8-10.5); CARBON DIOXIDE 29 mmol/L (22-29); CHLORIDE 104 mmol/L (98-107); CREATININE 1.26 mg/dL (0.60-1.30); GLUCOSE,RANDOM 127 mg/dL (70-110); POTASSIUM 4.6 mmol/L (3.5-5.1); SODIUM SERUM 138 mmol/L (136-145); UREA NITROGEN, BLOOD 21 mg/dL (7-18)
[2021-10-10 05:07] LABS: ALANINE AMINOTRANSFERASE 62 U/L (12-78); ALBUMIN 3.6 g/dL (3.4-5.0); ALKALINE PHOSPHATASE 100 U/L (46-116); ASPARTATE AMINOTRANSFERASE 37 U/L (15-37); BILIRUBIN,TOTAL 0.7 mg/dL (0.1-1.0); TOTAL PROTEIN, SERUM 7.9 g/dL (6.4-8.2)
[2021-10-10 05:09] LABS: GLOMERULAR FILTR. RATE CALC 59 mL/min (>60)
[2021-10-10] MEDS ORDERED: BUPR-50 PO (07:43)
[2021-10-10] MEDS ORDERED: ARIP10TA38 PO (07:43)
[2021-10-10 07:59] VITALS: BP 128/76
== END 2021-10-10 08:22 | disposition home or self-care (01) ==
LOC: EMS 03:42
DX: F25.1 Schizoaffective disorder, depressive type (principal); E11.9 Type 2 diabetes mellitus without complications; F32.9 Major depressive disorder, single episode, unspecified; F15.10 Other stimulant abuse, uncomplicated; F11.90 Opioid use, unspecified, uncomplicated; F17.210 Nicotine dependence, cigarettes, uncomplicated; I50.9 Heart failure, unspecified; Z90.49 Acquired absence of other specified parts of digestive tract
CPT/HCPCS: 99283; 80053; 85025; 36415; G0480

== ENCOUNTER 2022-10-18 15:10 | Inpatient (IN) | payer MEDICAID ==
[~2022-10-18] VITALS: Ht 182.9 cm; Wt 106.6 kg
[~2022-10-18 15:10] MED LIST changes: +ARIP10TA38 PO; -BACTDSB PO; -BUPR-290 PO; +BUPR-49 PO; -BUPR-50 PO; -CEPH-558 PO; -FURO20 PO; -OLAN7.5T22 PO
[2022-10-18] MEDS ORDERED: HALOPERIDOL 5 MG TABLET PO PRN (18:00)
[2022-10-18] MEDS ORDERED: LORazepam 2 MG TABLET PO PRN (18:00)
[2022-10-18] MEDS ORDERED: ZOLPIDEM TARTRATE 10 MG TABLET PO PRN (18:00)
[2022-10-18] MEDS ORDERED: -PHARMACY VACCINE NOTE- MISC ONE (18:15)
[2022-10-18 20:51] VITALS: BP 123/79; PULSE 88; RESP 19; TEMP 97.4; O2SAT 96
[2022-10-18 21:58] VITALS: BP 123/79; PULSE 87; RESP 18; TEMP 97.4
[2022-10-19] MEDS ORDERED: TraMADol HCL 50 MG TABLET PO PRN (06:30)
[2022-10-19] MEDS ORDERED: MetFORMIN HCL 500 MG TABLET PO SCH (07:00)
[2022-10-19 08:30] VITALS: BP 126/81; PULSE 64; RESP 18; TEMP 98; O2SAT 99
[2022-10-19] MEDS ORDERED: ONDANSETRON HCL 4 MG TABLET PO PRN (10:15)
[2022-10-19] MEDS ORDERED: CloNIDine HCL 0.1 MG TABLET PO PRN (10:15)
[2022-10-19] MEDS ORDERED: PETROLATUM,WHITE 28 GM JELLY TP PRN (10:15)
[2022-10-19] MEDS ORDERED: DOCUSATE SODIUM 100 MG CAPSULE PO PRN (10:15)
[2022-10-19] MEDS ORDERED: NICOTINE 14 MG/24 HOUR PATCH TD PRN (10:15)
[2022-10-19] MEDS ORDERED: MAG HYDROX/AL HYDROX/SIMETH ES 30 ML SUSPENSION UDCUP PO PRN (10:15)
[2022-10-19] MEDS ORDERED: ALBUTEROL SULFATE HFA 90 MCG/PUFF 8 GM INHALER IH PRN (10:15)
[2022-10-19] MEDS ORDERED: GuaiFENesin/D-METHORPHAN [SUGAR-FREE] 200-20MG/10 ML SYRUP UDCUP PO PRN (10:15)
[2022-10-19] MEDS ORDERED: LOPERAMIDE HCL 2 MG CAPSULE PO PRN (10:15)
[2022-10-19] MEDS: BuPROPion HCL XL 150 MG ER TABLET PO SCH (10:34)
[2022-10-19] MEDS: MAGNESIUM HYDROXIDE SUSPENSION 30 ML UDCUP PO PRN (11:02)
[2022-10-19 13:00] VITALS: RESP 19; O2SAT 99
[2022-10-19 14:00] VITALS: RESP 18; O2SAT 99
[2022-10-19 16:41] LABS: GLUCOMETER DEV NAME(LOC) BV2S.; GLUCOSE,POINT OF CARE 102 MG/DL (70-110)
[2022-10-19] MEDS: INSULIN GLARGINE,HUM.REC.ANLOG 100 UNITS/ML SQ SCH (16:53)
[2022-10-19] MEDS: MetFORMIN HCL 500 MG TABLET PO SCH (17:21)
[2022-10-19] MEDS: ARIPiprazole 10 MG TABLET PO SCH ×2 (20:48→20:55)
[2022-10-19 22:44] VITALS: RESP 18
[2022-10-20] MEDS: MetFORMIN HCL 500 MG TABLET PO SCH ×2 (06:46→17:00)
[2022-10-20 07:50] LABS: CHOL/HDL RATIO 2.9 (4.2-7.3); THYROID STIMULATING HORMONE 3.22 uIU/mL (0.36-3.74)
[2022-10-20] MEDS: BuPROPion HCL XL 150 MG ER TABLET PO SCH (08:50)
[2022-10-20 08:53] VITALS: BP 118/78; PULSE 79; RESP 18; TEMP 97.9; O2SAT 98
[2022-10-20] MEDS: INSULIN GLARGINE,HUM.REC.ANLOG 100 UNITS/ML SQ SCH ×2 (08:54→17:01)
[2022-10-20 09:01] LABS: GLUCOMETER DEV NAME(LOC) BV2S.; GLUCOSE,POINT OF CARE 188 MG/DL (70-110)
[2022-10-20] MEDS: MAGNESIUM HYDROXIDE SUSPENSION 30 ML UDCUP PO PRN (15:55)
[2022-10-20 16:36] LABS: GLUCOMETER DEV NAME(LOC) BV2S.; GLUCOSE,POINT OF CARE 81 MG/DL (70-110)
[2022-10-20 20:39] VITALS: BP 114/69; PULSE 73; RESP 18; TEMP 97.9; O2SAT 95
[2022-10-20] MEDS: ARIPiprazole 10 MG TABLET PO SCH (20:41)
[2022-10-21] MEDS: MetFORMIN HCL 500 MG TABLET PO SCH (06:43)
[2022-10-21 08:31] LABS: GLUCOMETER DEV NAME(LOC) BV2S.; GLUCOSE,POINT OF CARE 155 MG/DL (70-110)
[2022-10-21] MEDS: BuPROPion HCL XL 150 MG ER TABLET PO SCH (09:15)
[2022-10-21] MEDS: INSULIN GLARGINE,HUM.REC.ANLOG 100 UNITS/ML SQ SCH (09:20)
[2022-10-21] MEDS ORDERED: BUPR-49 PO (12:04)
[2022-10-21] MEDS ORDERED: ARIP10TA38 PO (12:04)
[2022-10-21] MEDS ORDERED: METF-1211 PO (12:04)
[2022-10-21] MEDS ORDERED: MUPIROCIN CALCIUM 2% 22 GM OINTMENT NASAL SCH (17:00)
== END 2022-10-21 13:05 | disposition home or self-care (01) | DRG 750 ==
LOC: B2S 17:48
PROVIDERS: ADMIT Psychiatry & Neurology Psychiatry; ATTEND Psychiatry & Neurology Psychiatry
DX: F25.1 Schizoaffective disorder, depressive type (principal); K74.60 Unspecified cirrhosis of liver; E11.9 Type 2 diabetes mellitus without complications; F31.9 Bipolar disorder, unspecified; E78.5 Hyperlipidemia, unspecified; J44.9 Chronic obstructive pulmonary disease, unspecified; I10 Essential (primary) hypertension; G47.00 Insomnia, unspecified; F15.10 Other stimulant abuse, uncomplicated; F11.10 Opioid abuse, uncomplicated; Z59.00 Homelessness unspecified; Z65.3 Problems related to other legal circumstances; Z79.899 Other long term (current) drug therapy; Z88.6 Allergy status to analgesic agent; Z91.018 Allergy to other foods; Z91.51 Personal history of suicidal behavior
CPT/HCPCS: 80061; 82962; 83036; 84443; 87081; J1815